=== PATIENT | female | born 1950 ===

== ENCOUNTER 2018-03-06 09:39 | Inpatient (IN) | payer MEDICARE, MEDICAID ==
[2018-03-06 09:40] VITALS: BMI 35.2
--- NOTE | 2018-03-06 09:56 | ED PDOC ---
HPI: Abdomen Time Seen by Provider: 03/06/18 09:44 Chief Complaint (Nursing): Abdominal Pain History Per: Patient History/Exam Limitations: no limitations Onset/Duration Of Symptoms: Other (x 1 week) Current Symptoms Are (Timing): Still Present Additional Complaint(s): 67-year-old female, with a past medical history of autoimmune hepatitis, presents to emergency department with RUQ abdominal pain associated with nausea and increased jaundice x 1 week. Pt reports subjective fever. Denies diarrhea. PMD: Provider TBD Past Medical History Reviewed: Historical Data, Nursing Documentation, Vital Signs Vital Signs: Last Vital Signs Temp 98.9 F 03/06/18 09:43 Pulse 76 03/06/18 09:43 Resp 18 03/06/18 09:43 BP 104/73 03/06/18 09:43 Pulse Ox 98 03/06/18 11:27 - Medical History PMH: Anxiety, Arthritis, Asthma, Bronchitis, CAD, Depression, Diverticulitis, Fractures, Gastritis, HTN, Hypercholesterolemia, Kidney Stones, Migraine, Pneumonia (treated as outpt in May 2016) Denies: HIV, Chronic Kidney Disease Other PMH: autoimmune hepatitis - Surgical History Other surgeries: b/l shoulder surgery - Family History Family History: States: Unknown Family Hx - Social History Current smoker - smoking cessation education provided: No Alcohol: None Drugs: Denies - Home Medications Home Medications: Ambulatory Orders Medication Instructions Recorded Carvedilol [Coreg] 12.5 mg PO BID 10/12/14 - Allergies Allergies/Adverse Reactions: Allergies Allergy/AdvReac Type Severity Reaction Status Date / Time codeine Allergy RASH Verified 05/27/16 11:23 peanut Allergy RASH Verified 05/27/16 11:23 Review of Systems ROS Statement: Except As Marked, All Systems Reviewed And Found Negative Constitutional: Positive for: Fever (subjective), Other (Increased jaundice) Gastrointestinal: Positive for: Nausea, Abdominal Pain (RUQ). Negative for: Diarrhea Physical Exam - Reviewed Nursing Documentation Reviewed: Yes Vital Signs Reviewed: Yes - Physical Exam Skin: Positive for: Jaundice Eye Exam: Positive for: Scleral icterus Cardiovascular/Chest: Positive for: Regular Rate, Rhythm Respiratory: Positive for: Normal Breath Sounds. Negative for: Respiratory Distress Gastrointestinal/Abdominal: Positive for: Tenderness (RUQ). Negative for: Guarding, Rebound Extremity: Negative for: Deformity, Swelling Neurologic/Psych: Positive for: Alert, Oriented (x 3) - Laboratory Results Result Diagrams: 03/06/18 10:00 03/06/18 10:00 - ECG O2 Sat by Pulse Oximetry: 98 (RA) Pulse Ox Interpretation: Normal Medical Decision Making Medical Decision Making: Time: 09:52 Plan: - CT Abdomen and Pelvis IV Contrast - CMP - CBC (with differential) - Urinalysis UA ordered. Scribe Attestation: Documented by Kenneth Reid, acting as a scribe for Godfrey Arreaga MD Provider Scribe Attestation: All medical record entries made by the Scribe were at my direction and personally dictated by me. I have reviewed the chart and agree that the record accurately reflects my personal performance of the history, physical exam, medical decision making, and the department course for this patient. I have also personally directed, reviewed, and agree with the discharge instructions and disposition. Disposition - Clinical Impression Clinical Impression: Jaundice due to hepatitis - Patient ED Disposition Is Patient to be Admitted: Yes - Disposition Disposition Time: 12:24 Condition: FAIR Forms: LastRoom (Tongan) - Pt Status Changed To: Hospital Disposition Of: Inpatient - Admit Certification Admit to Inpatient:: After my assessment, the patient will require hospitalization for at least two midnights. This is because of the severity of symptoms shown, intensity of services needed, and/or the medical risk in this patient being treated as an outpatient. - POA Present On Arrival: None
[2018-03-06 10:10] LABS: BASO # 0.1 K/uL (0.0-0.2); BASO % 1.5 % (0.0-2.0); EOS # 0.1 K/uL (0.0-0.7); EOS % 1.8 % (0.0-4.0); HEMOGLOBIN 11.7 g/dL (12.0-16.0); LYMPH # 2.8 K/uL (1.0-4.3); LYMPH % 37.1 % (20.0-40.0); MEAN CELL VOLUME 84.2 fl (81.0-99.0); MEAN CORPUSCULAR HEMOGLOBIN 28.4 pg (27.0-31.0); MEAN CORPUSCULAR HGB CONC 33.7 g/dL (33.0-37.0); MEAN PLATELET VOLUME 10.3 fl (7.2-11.7); MONO # 0.7 K/uL (0.0-0.8); MONO % 9.2 % (0.0-10.0); NEUT # 3.8 K/uL (1.8-7.0); NEUT % 50.4 % (50.0-75.0); NRBC % 0.1 % (0.0-0.0); RBC 4.14 Mil/uL (3.80-5.20); RED CELL DISTRIBUTION WIDTH 18.9 % (11.5-14.5); WHITE BLOOD COUNT 7.6 K/uL (4.8-10.8)
[2018-03-06 10:16] LABS: ALB/GLOB RATIO 0.6 (1.0-2.1); ALBUMIN 3.2 g/dL (3.5-5.0); ALT/SGPT 310 U/L (9-52); BLOOD UREA NITROGEN 15 mg/dl (7-17); CALCIUM 8.5 mg/dL (8.4-10.2); GFR NON-AFRICAN AMERICAN > 60
[2018-03-06 10:44] LABS: AST/SGOT 1661 U/L (14-36)
[2018-03-06 11:42] LABS: RENAL EPITHELIAL 1 /hpf (0-3); SQUAMOUS EPITHIAL 1 /hpf (0-5); URINE BILIRUBIN MODERATE (NEGATIVE); URINE BLOOD NEGATIVE (NEGATIVE); URINE CLARITY SLIGHTY-CLOUDY (Clear); URINE COLOR AMBER (YELLOW); URINE GLUCOSE (UA) NEG (Normal); URINE LEUKOCYTE ESTERASE TRACE Leu/uL (Negative); URINE PROTEIN NEGATIVE (NEGATIVE)
[2018-03-06] MEDS ORDERED: Sodium Chloride 0.9% 1,000 ML IV STA (11:47)
[2018-03-06] MEDS ORDERED: cefTRIAXone (Rocephin) 1 gm Inj ONE (12:58)
--- NOTE | 2018-03-06 13:14 | CP.PCM.HP ---
History of Present Illness - History of Present Illness History of Present Illness: 67 yo female with history of Autoimmune Hepatitis, HTN, HLD, Nephrolithiasis and Gastritis brought in by because of abdominal pain associated with severe nausea and jaundice since 6 days ago. Denied vomiting or diarrhea. Noted having fever of 102 and black stools yesterday. Present on Admission - Present on Admission Any Indicators Present on Admission: No History of DVT/PE: No History of Uncontrolled Diabetes: No Urinary Catheter: No Decubitus Ulcer Present: No Review of Systems - Review of Systems All systems: reviewed and no additional remarkable complaints except (aside from those mentioned above, 12 point system review were negative by me) Past Patient History - Tetanus Immunizations Tetanus Immunization: Unknown - Past Medical History & Family History Past Medical History?: Yes - Past Social History Smoking Status: Never Smoked Chewing Tobacco Use: No Cigar Use: No Alcohol: None Drugs: Denies Home Situation {Lives}: With Family - CARDIAC Hx Hypercholesterolemia: Yes Hx Hypertension: Yes - PULMONARY Hx Asthma: Yes Hx Bronchitis: Yes Hx Pneumonia: Yes (treated as outpt in May 2016) - NEUROLOGICAL Hx Migraine: Yes - HEENT Hx HEENT Problems: No - RENAL Hx Chronic Kidney Disease: No Hx Kidney Stones: Yes - ENDOCRINE/METABOLIC Hx Endocrine Disorders: No - HEMATOLOGICAL/ONCOLOGICAL Hx Human Immunodeficiency Virus (HIV): No Other/Comment: Autoimmune Hepatitis - INTEGUMENTARY Hx Dermatological Problems: No - MUSCULOSKELETAL/RHEUMATOLOGICAL Hx Arthritis: Yes Hx Fractures: Yes - GASTROINTESTINAL Hx Diverticulitis: Yes Hx Gastritis: Yes Other/Comment: Autoimmune Hepatitis - GENITOURINARY/GYNECOLOGICAL Hx Genitourinary Disorders: No - PSYCHIATRIC Hx Anxiety: Yes Hx Depression: Yes - SURGICAL HISTORY Hx Surgeries: Yes Other/Comment: JASON. SHOULDER SURGERY - ANESTHESIA Hx Anesthesia: Yes Hx Anesthesia Reactions: No Hx Malignant Hyperthermia: No Meds Allergies/Adverse Reactions: Allergies Allergy/AdvReac Type Severity Reaction Status Date / Time codeine Allergy RASH Verified 05/27/16 11:23 peanut Allergy RASH Verified 05/27/16 11:23 Physical Exam - Constitutional Appears: No Acute Distress - Head Exam Head Exam: ATRAUMATIC - Eye Exam Eye Exam: Scleral icterus - ENT Exam ENT Exam: Mucous Membranes Moist - Neck Exam Neck exam: Negative for: Meningismus - Respiratory Exam Respiratory Exam: absent: Rales, Rhonchi, Wheezes, Respiratory Distress - Cardiovascular Exam Cardiovascular Exam: REGULAR RHYTHM, +S1, +S2 - GI/Abdominal Exam GI & Abdominal Exam: Soft. absent: Tenderness - Rectal Exam Rectal Exam: Deferred - Extremities Exam Extremities exam: Negative for: calf tenderness, pedal edema - Back Exam Back exam: NORMAL INSPECTION - Neurological Exam Neurological exam: Alert, Oriented x3 - Psychiatric Exam Psychiatric exam: Normal Affect - Skin Skin Exam: Dry, Intact Results - Vital Signs Recent Vital Signs: Last Vital Signs Temp 98.9 F 03/06/18 09:43 Pulse 76 03/06/18 09:43 Resp 18 03/06/18 09:43 BP 104/73 03/06/18 09:43 Pulse Ox 98 03/06/18 12:24 - Labs Result Diagrams: 03/06/18 10:00 03/06/18 10:00 Labs: Laboratory Results - last 24 hr 03/06/18 03/06/18 03/06/18 10:00 10:00 11:20 WBC 7.6 RBC 4.14 Hgb 11.7 L Hct 34.8 MCV 84.2 MCH 28.4 MCHC 33.7 RDW 18.9 H Plt Count 200 MPV 10.3 Neut % (Auto) 50.4 Lymph % (Auto) 37.1 [place] % (Auto) 9.2 Eos % (Auto) 1.8 Baso % (Auto) 1.5 Neut # (Auto) 3.8 Lymph # (Auto) 2.8 [place] # (Auto) 0.7 Eos # (Auto) 0.1 Baso # (Auto) 0.1 Sodium 142 Potassium 4.0 Chloride 108 H Carbon Dioxide 23 Anion Gap 15 BUN 15 Creatinine 0.6 L Est GFR ( Amer) > 60 Est GFR (Non-Af Amer) > 60 Random Glucose 124 H Calcium 8.5 Total Bilirubin 11.6 H AST 1661 H ALT 310 H D Alkaline Phosphatase 126 Total Protein 8.6 H Albumin 3.2 L Globulin 5.4 H Albumin/Globulin Ratio 0.6 L Urine Color Aretha Urine Clarity Slighty-cloudy Urine pH 6.0 Ur Specific [place] 1.019 Urine Protein Negative Urine Glucose (UA) Neg Urine Ketones Negative Urine Blood Negative Urine Nitrate Negative Urine Bilirubin Moderate Urine Urobilinogen 4.0 H Ur Leukocyte Esterase Trace Urine RBC (Auto) 8 H Urine Microscopic WBC 19 H Ur Squamous Epith Cells 1 Ur Renal Epithelial Cell 1 Assessment & Plan - Assessment and Plan (Free Text) Assessment: 67 yo female with history of Autoimmune Hepatitis, HTN, HLD, Nephrolithiasis and Gastritis brought in by because of abdominal pain associated with severe nausea and jaundice since 6 days ago. Denied vomiting or diarrhea. Noted having fever of 102 and black stools yesterday. 1. Autoimmune Hepatitis Hepatitis profile LFT in am GI consult with Dr Calderon 2. UTI blood culture and urine culture Cipro 400mg IV q 12hrs 3. Gastritis Protonix 40mg PO daily Zofran 4mg IV q 6hrs prn stool guiac x 3 4. HTN BP controlled Coreg 6.25mg PO BID 5. DVT prophylaxis venodyne boots while in bed
[2018-03-06] MEDS ORDERED: Iohexol 300 100 ML IJ ONE (13:28)
[2018-03-06] MEDS ORDERED: Sodium Chloride 0.9% 50 ML IV ONE (13:29)
--- NOTE | 2018-03-06 14:20 | CT ---
Date of service: 03/06/2018 PROCEDURE: CT Abdomen and Pelvis with contrast HISTORY: Abd pain COMPARISON: None. TECHNIQUE: Following the intravenous administration of iodinated contrast material, a CT examination of the abdomen and pelvis performed from the domes of the diaphragms to the symphysis pubis with reformatted datasets provided in axial, sagittal and coronal planes. Oral contrast was not administered as per referring physician request. Contrast dose: Omnipaque 300, 95 cc Radiation dose: Total exam DLP = 1129.24 mGy-cm. This CT exam was performed using one or more of the following dose reduction techniques: Automated exposure control, adjustment of the mA and/or kV according to patient size, and/or use of iterative reconstruction technique. FINDINGS: LOWER THORAX: Scattered mild ground-glass opacity is seen at the bilateral lung bases as well as linear atelectasis versus fibrosis. Mild cardiomegaly is apparent. Trace pericardial thickening or effusion noted anteriorly. LIVER: Unremarkable. No gross lesion or ductal dilatation. GALLBLADDER AND BILE DUCTS: Gallbladder collapse is again identified with increased radiodense cholelithiasis. Trace recurrent or chronic cholecystic fluid is evident once again. PANCREAS: Unremarkable. No gross lesion or ductal dilatation. SPLEEN: Unremarkable. ADRENALS: Unremarkable. No mass. KIDNEYS AND URETERS: A punctate intrarenal is identified at the right kidney in the interval, nonobstructive. No additional radiodense urolithiasis bilaterally. Tiny sub cm lucencies are difficult to characterize due to their small size but not significantly change appears at the upper and mid to lower pole right kidney once again. A simple cyst measures 4.3 cm at the mid pole right kidney, increased in size from 3.3 cm previously. A stable adjacent small simple cyst is seen posterior or inferior to it measure 1.8 cm, not significantly changed in overall size. No obstructive uropathy bilaterally or definitive solid renal parenchymal mass identified at this time. VASCULATURE: Unremarkable. BOWEL: Lack of oral contrast limits evaluation the gastrointestinal tract with the stomach completely collapsed. There is no bowel obstruction. The majority of small bowel loops appear collapsed and large-bowel as normal caliber to collapsed variably. Limited retained fecal material scattered throughout the large bowel. No gross mural thickening or local pericolic reaction appreciable. APPENDIX: Normal appendix. PERITONEUM: Unremarkable. No free fluid. No free air. LYMPH NODES: Unremarkable. No enlarged lymph nodes. BLADDER: Unremarkable. REPRODUCTIVE: Unremarkable. BONES: Chronic but limited anterior wedge compression fractures suspected at T7, T8 and T9. OTHER FINDINGS: None. IMPRESSION: 1. Recurrent or persistent pattern of gallbladder collapsed, although the trace pericholecystic fluid is suggested once again. Clinically correlate further. Limited radiodense cholelithiasis is slightly increased in the dependent portion. 2. Left renal cyst identified. Tiny lucencies identified at the right kidney number a total of 2 enter too small to characterize once again. No obstructive uropathy bilaterally. Punctate radiodense intrarenal calculus is nonobstructive at the right kidney, with none identified at the left. 3. Other lesser findings as discussed above.
[2018-03-06] MEDS: Pantoprazole 40 mg EC Tab PO SCH (14:26)
[2018-03-06] MEDS ORDERED: Pantoprazole 40 mg EC Tab PO ONE (14:26)
--- NOTE | 2018-03-06 17:53 | CP.PCM.CON ---
History of Present Illness - History of Present Illness History of Present Illness: yo female with h/o autoimmune hepatitis c/o RUQ pain and increased jaundice. Had similar presentation in the past with LFTs of similar magnitude. Had liver biopsy 07/2016.which showed chronic active hepaitis with mixed etiology. Features favors autoimmune hepatitis. Review of Systems - Constitutional Constitutional: absent: Chills - EENT Eyes: absent: Blurred Vision Ears: absent: Ear Discharge Nose/Mouth/Throat: absent: Epistaxis - Breasts Breasts: absent: Mass - Cardiovascular Cardiovascular: absent: Chest Pain - Respiratory Respiratory: absent: Dyspnea - Gastrointestinal Gastrointestinal: Abdominal Pain - Genitourinary Genitourinary: absent: Change in Urinary Stream Past Patient History - Tetanus Immunizations Tetanus Immunization: Unknown - Past Medical History & Family History Past Medical History?: Yes - Past Social History Smoking Status: Never Smoked - CARDIAC Hx Cardiac Disorders: Yes Hx Hypercholesterolemia: Yes Hx Hypertension: Yes - PULMONARY Hx Respiratory Disorders: Yes Hx Asthma: Yes Hx Bronchitis: Yes Hx Pneumonia: Yes (treated as outpt in May 2016) - NEUROLOGICAL Hx Neurological Disorder: Yes Hx Migraine: Yes - HEENT Hx HEENT Problems: No - RENAL Hx Chronic Kidney Disease: No - ENDOCRINE/METABOLIC Hx Endocrine Disorders: No - HEMATOLOGICAL/ONCOLOGICAL Hx Blood Disorders: No Hx Human Immunodeficiency Virus (HIV): No Other/Comment: Autoimmune Hepatitis - INTEGUMENTARY Hx Dermatological Problems: No - MUSCULOSKELETAL/RHEUMATOLOGICAL Hx Musculoskeletal Disorders: Yes Hx Arthritis: Yes Hx Falls: No Hx Fractures: Yes - GASTROINTESTINAL Hx Gastrointestinal Disorders: Yes Hx Diverticulitis: Yes Hx Gastritis: Yes Other/Comment: Autoimmune Hepatitis - GENITOURINARY/GYNECOLOGICAL Hx Genitourinary Disorders: Yes Other/Comment: kidney stone - PSYCHIATRIC Hx Psychophysiologic Disorder: Yes Hx Anxiety: Yes Hx Depression: Yes Hx Substance Use: No - SURGICAL HISTORY Hx Surgeries: Yes Hx Orthopedic Surgery: Yes (bilateral shoulder, right kne arthroscopy) Other/Comment: JASON. SHOULDER SURGERY - ANESTHESIA Hx Anesthesia: Yes Hx Anesthesia Reactions: No Hx Malignant Hyperthermia: No Has any member of the family had a problem w/ anesthesia?: No Meds Allergies/Adverse Reactions: Allergies Allergy/AdvReac Type Severity Reaction Status Date / Time codeine Allergy RASH Verified 05/27/16 11:23 peanut Allergy RASH Verified 05/27/16 11:23 - Medications Medications: Current Medications Azathioprine (Imuran) 50 mg PO DAILY [facility] Azathioprine (Imuran) 50 mg PO DAILY [facility] Carvedilol (Coreg) 6.25 mg PO Q12 [facility] Sodium Chloride (Sodium Chloride 0.9%) 1,000 mls @ 150 mls/hr IV .Q6H40M STA Stop: 03/06/18 18:26 Last Admin: 03/06/18 12:52 Dose: 150 mls/hr Ciprofloxacin (Cipro 400mg/200ml Dsw) 400 mg in 200 mls @ 200 mls/hr IVPB Q12 [facility] PRN Reason: Protocol Pantoprazole Sodium (Protonix Ec Tab) 40 mg PO DAILY [facility] Last Admin: 03/06/18 14:26 Dose: 40 mg Prednisone (Prednisone Tab) 30 mg PO BID [facility] Physical Exam - Constitutional Appears: No Acute Distress - Head Exam Head Exam: ATRAUMATIC - Eye Exam Eye Exam: EOMI Pupil Exam: PERRL - ENT Exam ENT Exam: Normal Exam - Neck Exam Neck exam: Positive for: Normal Inspection - Respiratory Exam Respiratory Exam: Clear to Auscultation Bilateral - Cardiovascular Exam Cardiovascular Exam: REGULAR RHYTHM, +S1, +S2 - GI/Abdominal Exam GI & Abdominal Exam: Normal Bowel Sounds, Soft. absent: Tenderness Results - Vital Signs Recent Vital Signs: Last Vital Signs Temp 98.2 F 03/06/18 16:46 Pulse 62 03/06/18 16:46 Resp 18 03/06/18 16:46 BP 122/67 03/06/18 16:46 Pulse Ox 95 03/06/18 16:46 - Labs Result Diagrams: 03/06/18 10:00 03/06/18 10:00 Labs: Laboratory Results - last 24 hr 03/06/18 03/06/18 03/06/18 10:00 10:00 11:20 WBC 7.6 RBC 4.14 Hgb 11.7 L Hct 34.8 MCV 84.2 MCH 28.4 MCHC 33.7 RDW 18.9 H Plt Count 200 MPV 10.3 Neut % (Auto) 50.4 Lymph % (Auto) 37.1 [place] % (Auto) 9.2 Eos % (Auto) 1.8 Baso % (Auto) 1.5 Neut # (Auto) 3.8 Lymph # (Auto) 2.8 [place] # (Auto) 0.7 Eos # (Auto) 0.1 Baso # (Auto) 0.1 Sodium 142 Potassium 4.0 Chloride 108 H Carbon Dioxide 23 Anion Gap 15 BUN 15 Creatinine 0.6 L Est GFR ( Amer) > 60 Est GFR (Non-Af Amer) > 60 Random Glucose 124 H Calcium 8.5 Total Bilirubin 11.6 H AST 1661 H ALT 310 H D Alkaline Phosphatase 126 Ammonia Total Protein 8.6 H Albumin 3.2 L Globulin 5.4 H Albumin/Globulin Ratio 0.6 L Urine Color Aretha Urine Clarity Slighty-cloudy Urine pH 6.0 Ur Specific [place] 1.019 Urine Protein Negative Urine Glucose (UA) Neg Urine Ketones Negative Urine Blood Negative Urine Nitrate Negative Urine Bilirubin Moderate Urine Urobilinogen 4.0 H Ur Leukocyte Esterase Trace Urine RBC (Auto) 8 H Urine Microscopic WBC 19 H Ur Squamous Epith Cells 1 Ur Renal Epithelial Cell 1 03/06/18 12:45 WBC RBC Hgb Hct MCV MCH MCHC RDW Plt Count MPV Neut % (Auto) Lymph % (Auto) [place] % (Auto) Eos % (Auto) Baso % (Auto) Neut # (Auto) Lymph # (Auto) [place] # (Auto) Eos # (Auto) Baso # (Auto) Sodium Potassium Chloride Carbon Dioxide Anion Gap BUN Creatinine Est GFR ( Amer) Est GFR (Non-Af Amer) Random Glucose Calcium Total Bilirubin AST ALT Alkaline Phosphatase Ammonia 27 Total Protein Albumin Globulin Albumin/Globulin Ratio Urine Color Urine Clarity Urine pH Ur Specific [place] Urine Protein Urine Glucose (UA) Urine Ketones Urine Blood Urine Nitrate Urine Bilirubin Urine Urobilinogen Ur Leukocyte Esterase Urine RBC (Auto) Urine Microscopic WBC Ur Squamous Epith Cells Ur Renal Epithelial Cell Assessment & Plan (1) Jaundice due to hepatitis Assessment and Plan: Multiple admissions with similar LFTs and w/u most c/w autoimmune hepatitis. Will start prednisone and AZT.. Follow CBC and LFTs daily. Status: Acute
[2018-03-06] MEDS: Sodium Chloride 0.9% 1,000 ML IV SCH (20:30)
[2018-03-06 21:42] LABS: HEPATITIS B SURFACE AG Negative (NEGATIVE)
[2018-03-06 21:48] LABS: HEPATITIS A IGM NEGATIVE (NEGATIVE); HEPATITIS B CORE AB NEGATIVE (NEGATIVE)
[2018-03-06 22:00] LABS: HEPATITIS C ANTIBODY NEGATIVE (NEGATIVE)
[2018-03-06] MEDS: Ciprofloxacin 400mg/200ml D5W 400 MG/200 ML BAG IVPB SCH (22:54)
[2018-03-07] MEDS: Sodium Chloride 0.9% 1,000 ML IV SCH ×3 (02:00→17:16)
[2018-03-07 07:20] LABS: BASO % 0.6 % (0.0-2.0); EOS % 0.2 % (0.0-4.0); HEMOGLOBIN 11.5 g/dL (12.0-16.0); LYMPH # 1.2 K/uL (1.0-4.3); MEAN CELL VOLUME 84.9 fl (81.0-99.0); MEAN CORPUSCULAR HEMOGLOBIN 28.3 pg (27.0-31.0); MEAN CORPUSCULAR HGB CONC 33.3 g/dL (33.0-37.0); MEAN PLATELET VOLUME 11.4 fl (7.2-11.7); MONO # 0.3 K/uL (0.0-0.8); MONO % 4.3 % (0.0-10.0); NEUT # 4.3 K/uL (1.8-7.0); NEUT % 73.9 % (50.0-75.0); RBC 4.08 Mil/uL (3.80-5.20); RED CELL DISTRIBUTION WIDTH 20.3 % (11.5-14.5); WHITE BLOOD COUNT 5.9 K/uL (4.8-10.8)
[2018-03-07 07:40] LABS: ALB/GLOB RATIO 0.6 (1.0-2.1); ALBUMIN 2.9 g/dL (3.5-5.0); ALT/SGPT 271 U/L (9-52); BILIRUBIN,DIRECT 8.9 mg/ml (0.0-0.4); BLOOD UREA NITROGEN 12 mg/dl (7-17); CALCIUM 8.1 mg/dL (8.4-10.2); GFR NON-AFRICAN AMERICAN > 60
[2018-03-07 07:53] LABS: AST/SGOT 1391 U/L (14-36)
[2018-03-07] MEDS: Pantoprazole 40 mg EC Tab PO SCH (08:58)
[2018-03-07 10:07] LABS: INR 2.2 (0.9-1.2); PROTHROMBIN TIME 25.1 Seconds (9.8-13.1)
[2018-03-07] MEDS: Ciprofloxacin 400mg/200ml D5W 400 MG/200 ML BAG IVPB SCH ×2 (11:00→20:54)
--- NOTE | 2018-03-07 19:06 | CP.PCM.PN ---
Subjective - Date & Time of Evaluation Date of Evaluation: 03/07/18 Time of Evaluation: 14:00 - Subjective Subjective: Patient seen and examined. Feeling better with abdominal pain and nausea relieved. Objective - Vital Signs/Intake and Output Vital Signs (last 24 hours): Temp Pulse Resp BP Pulse Ox 97.9 F 59 L 18 119/74 94 L 03/07/18 16:56 03/07/18 16:56 03/07/18 16:56 03/07/18 16:56 03/07/18 16:56 - Medications Medications: Current Medications Azathioprine (Imuran) 50 mg PO DAILY [facility] Last Admin: 03/07/18 09:03 Dose: 50 mg Carvedilol (Coreg) 6.25 mg PO Q12 [facility] Last Admin: 03/07/18 08:58 Dose: Not Given Ciprofloxacin (Cipro 400mg/200ml Dsw) 400 mg in 200 mls @ 200 mls/hr IVPB Q12 [facility] PRN Reason: Protocol Last Admin: 03/07/18 11:00 Dose: 200 mls/hr Sodium Chloride (Sodium Chloride 0.9%) 1,000 mls @ 150 mls/hr IV .Q6H40M [facility] Stop: 03/07/18 19:54 Last Admin: 03/07/18 17:16 Dose: 150 mls/hr Pantoprazole Sodium (Protonix Ec Tab) 40 mg PO DAILY [facility] Last Admin: 03/07/18 08:58 Dose: 40 mg Prednisone (Prednisone Tab) 30 mg PO BID [facility] Last Admin: 03/07/18 17:15 Dose: 30 mg - Labs Labs: 03/07/18 05:20 03/07/18 05:20 PT 25.1 Seconds (9.8-13.1) H 03/07/18 09:00 INR 2.2 (0.9-1.2) H 03/07/18 09:00 - Constitutional Appears: No Acute Distress - Head Exam Head Exam: ATRAUMATIC - Eye Exam Eye Exam: Scleral icterus - ENT Exam ENT Exam: Mucous Membranes Moist - Neck Exam Neck Exam: absent: Meningismus - Respiratory Exam Respiratory Exam: absent: Rales, Rhonchi, Wheezes, Respiratory Distress - Cardiovascular Exam Cardiovascular Exam: REGULAR RHYTHM, +S1, +S2 - GI/Abdominal Exam GI & Abdominal Exam: Soft. absent: Tenderness - Rectal Exam Rectal Exam: Deferred - Neurological Exam Neurological Exam: Alert, Oriented x3 - Psychiatric Exam Psychiatric exam: Normal Affect - Skin Skin Exam: Dry, Intact Assessment and Plan - Assessment and Plan (Free Text) Assessment: 67 yo female with history of Autoimmune Hepatitis, HTN, HLD, Nephrolithiasis and Gastritis brought in by because of abdominal pain associated with severe nausea and jaundice since 6 days ago. Denied vomiting or diarrhea. Noted having fever of 102 and black stools yesterday. 1. Autoimmune Hepatitis continue Imuran and Prednisone GI consult with Dr Calderon appreciated LFTs and CBC in am 2. UTI blood culture and urine culture: no growth continue IV Cipro 3. Gastritis Protonix 40mg PO daily stool guiac x 3 4. HTN BP controlled Coreg 6.25mg PO BID 5. DVT prophylaxis venodyne boots while in bed
[2018-03-08 07:05] LABS: HEMOGLOBIN 10.7 g/dL (12.0-16.0); MEAN CELL VOLUME 84.5 fl (81.0-99.0); MEAN CORPUSCULAR HEMOGLOBIN 28.8 pg (27.0-31.0); RBC 3.73 Mil/uL (3.80-5.20); RED CELL DISTRIBUTION WIDTH 19.6 % (11.5-14.5); WHITE BLOOD COUNT 9.9 K/uL (4.8-10.8)
[2018-03-08 07:23] LABS: ALB/GLOB RATIO 0.5 (1.0-2.1); ALBUMIN 2.5 g/dL (3.5-5.0); BILIRUBIN,DIRECT 6.2 mg/ml (0.0-0.4)
[2018-03-08] MEDS: Ciprofloxacin 400mg/200ml D5W 400 MG/200 ML BAG IVPB SCH ×2 (08:31→21:40)
[2018-03-08] MEDS: Pantoprazole 40 mg EC Tab PO SCH (08:33)
[2018-03-08] MEDS ORDERED: Magnesium Hydroxide Susp 30 ml UD PO PRN (12:21)
--- NOTE | 2018-03-08 12:26 | CP.PCM.PN ---
Subjective - Date & Time of Evaluation Date of Evaluation: 03/08/18 Time of Evaluation: 12:23 - Subjective Subjective: Patient c/0 abdominal distention and has not had a BM for 3 days. Objective - Vital Signs/Intake and Output Vital Signs (last 24 hours): Temp Pulse Resp BP Pulse Ox 97.6 F 60 20 97/53 L 95 03/08/18 08:21 03/08/18 08:33 03/08/18 08:21 03/08/18 08:33 03/08/18 08:21 - Medications Medications: Current Medications Azathioprine (Imuran) 50 mg PO DAILY [facility] Last Admin: 03/08/18 08:34 Dose: 50 mg Carvedilol (Coreg) 6.25 mg PO Q12 [facility] Last Admin: 03/08/18 08:33 Dose: 6.25 mg Ciprofloxacin (Cipro 400mg/200ml Dsw) 400 mg in 200 mls @ 200 mls/hr IVPB Q12 [facility] PRN Reason: Protocol Last Admin: 03/08/18 08:31 Dose: 200 mls/hr Magnesium Hydroxide (Milk Of Magnesia) 30 ml PO DAILY PRN PRN Reason: Constipation Pantoprazole Sodium (Protonix Ec Tab) 40 mg PO DAILY [facility] Last Admin: 03/08/18 08:33 Dose: 40 mg Prednisone (Prednisone Tab) 30 mg PO BID [facility] Last Admin: 03/08/18 08:34 Dose: 30 mg - Labs Labs: 03/08/18 05:20 03/07/18 05:20 PT 25.1 Seconds (9.8-13.1) H 03/07/18 09:00 INR 2.2 (0.9-1.2) H 03/07/18 09:00 - Constitutional Appears: Well - Head Exam Head Exam: ATRAUMATIC - Eye Exam Eye Exam: Scleral icterus - ENT Exam ENT Exam: Mucous Membranes Moist - Respiratory Exam Respiratory Exam: Clear to Ausculation Bilateral - Cardiovascular Exam Cardiovascular Exam: REGULAR RHYTHM, +S1, +S2 - GI/Abdominal Exam GI & Abdominal Exam: Distended, Soft, Normal Bowel Sounds. absent: Tenderness - Extremities Exam Extremities Exam: Normal Inspection Assessment and Plan (1) Jaundice due to hepatitis Assessment & Plan: LFTs improving on AZT and steroids. Drop in Hgb likely due to hemodilution as there is no clinical evidence of GI bleed. Continue current meds. MOM given for constipation. Status: Acute
--- NOTE | 2018-03-08 12:53 | CP.PCM.PN ---
Subjective - Date & Time of Evaluation Date of Evaluation: 03/08/18 Time of Evaluation: 12:53 - Subjective Subjective: pt states she is feeling mildly better however has some abd distension and admits to joi nunez no BM today hd stable nad Objective - Vital Signs/Intake and Output Vital Signs (last 24 hours): Temp Pulse Resp BP Pulse Ox 97.6 F 60 20 97/53 L 95 03/08/18 08:21 03/08/18 08:33 03/08/18 08:21 03/08/18 08:33 03/08/18 08:21 Vitals Reviewed GEN: WDWN, alert, cooperative HEENT: NCAT, PERRL, EOMI HEART: RRR, +S1S2, NO MRG LUNG: CTAB, NO WRR ABD: soft, NT, ND, No HSM, No masses EXT: normal pedal pulses, normal capillary refill NEURO: awake, alert, no focal deficits SKIN: warm, dry PSYCH: normal mood, normal affect - Medications Medications: Current Medications Azathioprine (Imuran) 50 mg PO DAILY [facility] Last Admin: 03/08/18 08:34 Dose: 50 mg Carvedilol (Coreg) 6.25 mg PO Q12 [facility] Last Admin: 03/08/18 08:33 Dose: 6.25 mg Ciprofloxacin (Cipro 400mg/200ml Dsw) 400 mg in 200 mls @ 200 mls/hr IVPB Q12 [facility] PRN Reason: Protocol Last Admin: 03/08/18 08:31 Dose: 200 mls/hr Magnesium Hydroxide (Milk Of Magnesia) 30 ml PO DAILY PRN PRN Reason: Constipation Last Admin: 03/08/18 12:45 Dose: 30 ml Pantoprazole Sodium (Protonix Ec Tab) 40 mg PO DAILY [facility] Last Admin: 03/08/18 08:33 Dose: 40 mg Prednisone (Prednisone Tab) 30 mg PO BID [facility] Last Admin: 03/08/18 08:34 Dose: 30 mg - Labs Labs: 03/08/18 05:20 03/07/18 05:20 PT 25.1 Seconds (9.8-13.1) H 03/07/18 09:00 INR 2.2 (0.9-1.2) H 03/07/18 09:00 Assessment and Plan - Assessment and Plan (Free Text) Plan: 67 yo female with history of Autoimmune Hepatitis, HTN, HLD, Nephrolithiasis and Gastritis brought in by because of abdominal pain associated with severe nausea and jaundice since 6 days ago. Denied vomiting or diarrhea. Noted having fever of 102 and black stools yesterday. 1. Autoimmune Hepatitis continue Imuran and Prednisone GI consult with Dr Calderon appreciated LFTs and CBC in am 2. UTI blood culture and urine culture: no growth continue IV Cipro 3. Gastritis Protonix 40mg PO daily stool guiac x 3 monitor H/H drop 1 gm overnight, possible hemodilution 4. HTN BP controlled Coreg 6.25mg PO BID 5. DVT prophylaxis venodyne boots while in bed
[2018-03-08] MEDS: Sodium Chloride 0.9% 1,000 ML IV SCH (21:10)
[2018-03-09 06:38] LABS: HEMOGLOBIN 11.3 g/dL (12.0-16.0); MEAN CELL VOLUME 84.7 fl (81.0-99.0); MEAN CORPUSCULAR HEMOGLOBIN 29.1 pg (27.0-31.0); MEAN CORPUSCULAR HGB CONC 34.4 g/dL (33.0-37.0); RBC 3.87 Mil/uL (3.80-5.20); RED CELL DISTRIBUTION WIDTH 20.3 % (11.5-14.5); WHITE BLOOD COUNT 10.8 K/uL (4.8-10.8)
[2018-03-09 07:31] LABS: BLOOD UREA NITROGEN 16 mg/dl (7-17); GFR NON-AFRICAN AMERICAN > 60
[2018-03-09] MEDS: Ciprofloxacin 400mg/200ml D5W 400 MG/200 ML BAG IVPB SCH ×2 (08:26→20:28)
[2018-03-09] MEDS: Pantoprazole 40 mg EC Tab PO SCH (08:28)
[2018-03-09] MEDS: Sodium Chloride 0.9% 1,000 ML IV SCH ×2 (08:29→17:35)
[2018-03-09 09:36] LABS: ALB/GLOB RATIO 0.6 (1.0-2.1); ALBUMIN 2.6 g/dL (3.5-5.0); BILIRUBIN,DIRECT 4.4 mg/ml (0.0-0.4)
[2018-03-09] MEDS ORDERED: Bisacodyl 5mg EC Tab PO ONE (12:09)
--- NOTE | 2018-03-09 14:19 | CP.PCM.PN ---
Subjective - Date & Time of Evaluation Date of Evaluation: 03/09/18 Time of Evaluation: 14:14 - Subjective Subjective: Patient still with weakness and c/o abdominal swelling but is better. Objective - Vital Signs/Intake and Output Vital Signs (last 24 hours): Temp Pulse Resp BP Pulse Ox 98.1 F 59 L 19 138/79 96 03/09/18 07:53 03/09/18 08:27 03/09/18 07:53 03/09/18 08:27 03/09/18 07:53 - Medications Medications: Current Medications Azathioprine (Imuran) 50 mg PO DAILY [facility] Last Admin: 03/09/18 08:28 Dose: 50 mg Ciprofloxacin (Cipro 400mg/200ml Dsw) 400 mg in 200 mls @ 200 mls/hr IVPB Q12 [facility] PRN Reason: Protocol Last Admin: 03/09/18 08:26 Dose: 200 mls/hr Sodium Chloride (Sodium Chloride 0.9%) 1,000 mls @ 100 mls/hr IV .Q10H [facility] Stop: 03/09/18 20:53 Last Admin: 03/09/18 08:29 Dose: 100 mls/hr Magnesium Hydroxide (Milk Of Magnesia) 30 ml PO DAILY PRN PRN Reason: Constipation Last Admin: 03/08/18 12:45 Dose: 30 ml Pantoprazole Sodium (Protonix Ec Tab) 40 mg PO DAILY [facility] Last Admin: 03/09/18 08:28 Dose: 40 mg Prednisone (Prednisone Tab) 30 mg PO BID [facility] Last Admin: 03/09/18 08:26 Dose: 30 mg - Labs Labs: 03/09/18 05:45 03/09/18 05:45 PT 25.1 Seconds (9.8-13.1) H 03/07/18 09:00 INR 2.2 (0.9-1.2) H 03/07/18 09:00 - Head Exam Head Exam: ATRAUMATIC - Eye Exam Pupil Exam: PERRL - ENT Exam ENT Exam: Normal Exam - Neck Exam Neck Exam: Full ROM - Respiratory Exam Respiratory Exam: NORMAL BREATHING PATTERN - Cardiovascular Exam Cardiovascular Exam: REGULAR RHYTHM, +S1, +S2 - GI/Abdominal Exam GI & Abdominal Exam: Soft, Normal Bowel Sounds Assessment and Plan (1) Jaundice due to hepatitis Status: Acute (2) Autoimmune hepatitis Assessment & Plan: Patient on AZT and prednisone and LFTs continue to improve. She states she is feeling better than she had when she was admitted. Continue current meds, she will need continuing medical management as outpatient. Status: Acute (3) Autoimmune hepatitis Status: Acute
--- NOTE | 2018-03-09 16:01 | CP.PCM.PN ---
<Kina Price - Last Filed: 03/09/18 16:06> Subjective - Date & Time of Evaluation Date of Evaluation: 03/09/18 Time of Evaluation: 09:50 - Subjective Subjective: Patient was seen and examined at bedside with Dr. Lindquist. She is resting comfortably and reports she has abdominal discomfort at the RUQ. She also reports poor appetite but is trying to eat. She reports she has not had a bowel movement for almost 2-3 days and states her current dose of ducolax is not helping. Pt denies nausea, vomiting, dysuria, shortness of breath, and chest pain. Objective - Vital Signs/Intake and Output Vital Signs (last 24 hours): Temp Pulse Resp BP Pulse Ox 98.1 F 59 L 19 138/79 96 03/09/18 07:53 03/09/18 08:27 03/09/18 07:53 03/09/18 08:27 03/09/18 07:53 - Medications Medications: Current Medications Azathioprine (Imuran) 50 mg PO DAILY [facility] Last Admin: 03/09/18 08:28 Dose: 50 mg Ciprofloxacin (Cipro 400mg/200ml Dsw) 400 mg in 200 mls @ 200 mls/hr IVPB Q12 [facility] PRN Reason: Protocol Last Admin: 03/09/18 08:26 Dose: 200 mls/hr Sodium Chloride (Sodium Chloride 0.9%) 1,000 mls @ 100 mls/hr IV .Q10H [facility] Stop: 03/09/18 20:53 Last Admin: 03/09/18 08:29 Dose: 100 mls/hr Magnesium Hydroxide (Milk Of Magnesia) 30 ml PO DAILY PRN PRN Reason: Constipation Last Admin: 03/08/18 12:45 Dose: 30 ml Pantoprazole Sodium (Protonix Ec Tab) 40 mg PO DAILY [facility] Last Admin: 03/09/18 08:28 Dose: 40 mg Prednisone (Prednisone Tab) 30 mg PO BID [facility] Last Admin: 03/09/18 08:26 Dose: 30 mg - Labs Labs: 03/09/18 05:45 03/09/18 05:45 PT 25.1 Seconds (9.8-13.1) H 03/07/18 09:00 INR 2.2 (0.9-1.2) H 03/07/18 09:00 - Constitutional Appears: Well, Non-toxic, No Acute Distress - Head Exam Head Exam: NORMAL INSPECTION - Eye Exam Eye Exam: Normal appearance - ENT Exam ENT Exam: Mucous Membranes Moist, Normal Oropharynx - Neck Exam Neck Exam: Normal Inspection. absent: Lymphadenopathy, Tenderness, Thyromegaly - Respiratory Exam Respiratory Exam: Clear to Ausculation Bilateral, NORMAL BREATHING PATTERN. absent: Chest Wall Tenderness, Decreased Breath Sounds, Prolonged Expiratory Phase, Rales, Rhonchi, Wheezes, Respiratory Distress, Stridor - Cardiovascular Exam Cardiovascular Exam: Bradycardia, REGULAR RHYTHM, +S1, +S2. absent: Clicks, Diastolic murmur, Gallop, RRR, Rubs, +S4, Murmur - GI/Abdominal Exam GI & Abdominal Exam: Distended, Soft, Tenderness (+ RUQ tenderness. ), Normal Bowel Sounds. absent: Firm, Guarding, Rigid, Mass, Organomegaly, Pulsatile Mass , Rebound - Extremities Exam Extremities Exam: Normal Inspection - Neurological Exam Neurological Exam: Alert, Awake, Oriented x3 - Psychiatric Exam Psychiatric exam: Normal Affect, Normal Mood - Skin Skin Exam: Dry, Intact, Normal Color, Warm Assessment and Plan (1) Gastritis Status: Acute (2) UTI (urinary tract infection) Status: Acute (3) Autoimmune hepatitis Status: Acute (4) HTN (hypertension) Status: Chronic (5) DVT prophylaxis Status: Acute - Assessment and Plan (Free Text) Assessment: 67 yo female with medical history of Autoimmune Hepatitis, HTN, HLD, Nephrolithiasis and Gastritis brought in by because of abdominal pain associated with severe nausea and jaundice for 6 days duration. Denied vomiting or diarrhea. Patient is afebrile. Plan: 1. Autoimmune Hepatitis -Continue Imuran and Prednisone -LFT trending down. - GI consult appreciated: Continue current medical management. 2. UTI blood culture and urine culture: no growth continue IV Cipro 3. Gastritis Protonix 40mg PO daily Pending stool guiac x 3 Ducolax 10 mg given because of constipation. 4. HTN BP controlled D/Mg Coreg because of bradycardia. Continue to monitor. 5. DVT prophylaxis venodyne boots while in bed <Renato Lindquist - Last Filed: 03/10/18 16:49> Objective - Vital Signs/Intake and Output Vital Signs (last 24 hours): Temp Pulse Resp BP Pulse Ox 97.9 F 56 L 19 145/81 96 03/10/18 07:46 03/10/18 07:46 03/10/18 07:46 03/10/18 07:46 03/10/18 07:46 - Labs Labs: 03/10/18 05:35 03/09/18 05:45 PT 25.1 Seconds (9.8-13.1) H 03/07/18 09:00 INR 2.2 (0.9-1.2) H 03/07/18 09:00 Attending/Attestation - Attestation I have personally seen and examined this patient.: Yes I have fully participated in the care of the patient.: Yes I have reviewed all pertinent clinical information, including history, physical exam and plan: Yes Notes (Text): 1. Autoimmune Hepatitis -Continue Imuran and Prednisone -LFT trending down. 2. UTI blood culture and urine culture: no growth continue IV Cipro
[2018-03-09 23:38] VITALS: TEMP 97.9; O2SAT 96
[2018-03-10] MEDS ORDERED: Alum-Mag Hydrox-Simethicone Susp (30 mL) PO ONE (05:38)
[2018-03-10 06:41] LABS: HEMOGLOBIN 10.9 g/dL (12.0-16.0); MEAN CELL VOLUME 85.4 fl (81.0-99.0); MEAN CORPUSCULAR HEMOGLOBIN 28.5 pg (27.0-31.0); MEAN CORPUSCULAR HGB CONC 33.3 g/dL (33.0-37.0); RBC 3.83 Mil/uL (3.80-5.20); RED CELL DISTRIBUTION WIDTH 21.1 % (11.5-14.5); WHITE BLOOD COUNT 8.7 K/uL (4.8-10.8)
[2018-03-10 07:41] LABS: ALB/GLOB RATIO 0.6 (1.0-2.1); ALBUMIN 2.5 g/dL (3.5-5.0); BILIRUBIN,DIRECT 3.6 mg/ml (0.0-0.4)
[2018-03-10 07:47] VITALS: BP 145/81; PULSE 56; RESP 19
[2018-03-10] MEDS: Ciprofloxacin 400mg/200ml D5W 400 MG/200 ML BAG IVPB SCH (09:01)
[2018-03-10] MEDS: Pantoprazole 40 mg EC Tab PO SCH (09:02)
--- NOTE | 2018-03-10 10:02 | CP.PCM.DIS ---
<Kina Price - Last Filed: 03/10/18 15:52> Provider - Provider Date of Admission: 03/06/18 12:22 Attending physician: Moy Vázquez MD Time Spent in preparation of Discharge (in minutes): 34 Diagnosis - Discharge Diagnosis (1) Gastritis Status: Acute Comment: Protonix 40mg po d during hospital course. '. Ducolax was given due to constipation. (2) UTI (urinary tract infection) Status: Acute Comment: Suspected UTI. Patient was given Cipro and is being discharged on cipro. (3) Autoimmune hepatitis Status: Acute Comment: throughout the hospital course the LFT's have shown improvement. Continue her current treatment of Azathioprine and prednisone. Patient to follow up with Dr. Calderon in his office. (4) HTN (hypertension) Status: Chronic Comment: controlled. (5) DVT prophylaxis Status: Acute Comment: encouraged to ambulate. Hospital Course - Lab Results Lab Results: Micro Results 03/06/18 15:25 Blood-Venous Blood Culture - Preliminary NO GROWTH AFTER 3 DAYS 03/06/18 15:15 Blood-Venous Blood Culture - Preliminary NO GROWTH AFTER 3 DAYS 03/06/18 17:38 Urine,Clean Catch Urine Culture - Final No Growth (<1,000 CFU/ML) Most Recent Lab Values WBC 8.7 K/uL (4.8-10.8) 03/10/18 05:35 RBC 3.83 Mil/uL (3.80-5.20) 03/10/18 05:35 Hgb 10.9 g/dL (12.0-16.0) L 03/10/18 05:35 Hct 32.7 % (34.0-47.0) L 03/10/18 05:35 MCV 85.4 fl (81.0-99.0) 03/10/18 05:35 MCH 28.5 pg (27.0-31.0) 03/10/18 05:35 MCHC 33.3 g/dL (33.0-37.0) 03/10/18 05:35 RDW 21.1 % (11.5-14.5) H 03/10/18 05:35 Plt Count 177 K/uL (130-400) 03/10/18 05:35 MPV 11.4 fl (7.2-11.7) 03/07/18 05:20 Neut % (Auto) 73.9 % (50.0-75.0) 03/07/18 05:20 Lymph % (Auto) 21.0 % (20.0-40.0) 03/07/18 05:20 [place] % (Auto) 4.3 % (0.0-10.0) 03/07/18 05:20 Eos % (Auto) 0.2 % (0.0-4.0) 03/07/18 05:20 Baso % (Auto) 0.6 % (0.0-2.0) 03/07/18 05:20 Neut # (Auto) 4.3 K/uL (1.8-7.0) 03/07/18 05:20 Lymph # (Auto) 1.2 K/uL (1.0-4.3) 03/07/18 05:20 [place] # (Auto) 0.3 K/uL (0.0-0.8) 03/07/18 05:20 Eos # (Auto) 0.0 K/uL (0.0-0.7) 03/07/18 05:20 Baso # (Auto) 0.0 K/uL (0.0-0.2) 03/07/18 05:20 PT 25.1 Seconds (9.8-13.1) H 03/07/18 09:00 INR 2.2 (0.9-1.2) H 03/07/18 09:00 Sodium 142 mmol/l (132-148) 03/09/18 05:45 Potassium 4.7 MMOL/L (3.6-5.0) 03/09/18 05:45 Chloride 112 mmol/L (98-107) H 03/09/18 05:45 Carbon Dioxide 23 mmol/L (22-30) 03/09/18 05:45 Anion Gap 12 (10-20) 03/09/18 05:45 BUN 16 mg/dl (7-17) 03/09/18 05:45 Creatinine 0.6 mg/dl (0.7-1.2) L 03/09/18 05:45 Est GFR ( Amer) > 60 03/09/18 05:45 Est GFR (Non-Af Amer) > 60 03/09/18 05:45 Random Glucose 140 mg/dL (65-105) H 03/09/18 05:45 Calcium 8.0 mg/dL (8.4-10.2) L 03/09/18 05:45 Total Bilirubin 5.0 mg/dl (0.2-1.3) H 03/10/18 05:35 Direct Bilirubin 3.6 mg/ml (0.0-0.4) H 03/10/18 05:35 AST 407 U/L (14-36) H D 03/10/18 05:35 ALT 152 U/L (9-52) H 03/10/18 05:35 Alkaline Phosphatase 120 U/L (38-126) 03/10/18 05:35 Ammonia 27 umo/L (11-51) 03/06/18 12:45 Total Protein 7.0 G/DL (6.3-8.2) 03/10/18 05:35 Albumin 2.5 g/dL (3.5-5.0) L 03/10/18 05:35 Globulin 4.4 gm/dL (2.2-3.9) H 03/10/18 05:35 Albumin/Globulin Ratio 0.6 (1.0-2.1) L 03/10/18 05:35 Urine Color Aretha (YELLOW) 03/06/18 11:20 Urine Clarity Slighty-cloudy (Clear) 03/06/18 11:20 Urine pH 6.0 (5.0-8.0) 03/06/18 11:20 Ur Specific [place] 1.019 (1.003-1.030) 03/06/18 11:20 Urine Protein Negative mg/dL (NEGATIVE) 03/06/18 11:20 Urine Glucose (UA) Neg mg/dL (Normal) 03/06/18 11:20 Urine Ketones Negative mg/dL (NEGATIVE) 03/06/18 11:20 Urine Blood Negative (NEGATIVE) 03/06/18 11:20 Urine Nitrate Negative (NEGATIVE) 03/06/18 11:20 Urine Bilirubin Moderate (NEGATIVE) 03/06/18 11:20 Urine Urobilinogen 4.0 mg/dL (0.2-1.0) H 03/06/18 11:20 Ur Leukocyte Esterase Trace [place]/uL (Negative) 03/06/18 11:20 Urine RBC (Auto) 8 /hpf (0-3) H 03/06/18 11:20 Urine Microscopic WBC 19 /hpf (0-5) H 03/06/18 11:20 Ur Squamous Epith Cells 1 /hpf (0-5) 03/06/18 11:20 Ur Renal Epithelial Cell 1 /hpf (0-3) 03/06/18 11:20 Stool Occult Blood Negative (NEGATIVE) 03/09/18 18:30 Hepatitis A IgM Ab Negative (NEGATIVE) 03/06/18 15:15 Hep Bs Antigen Negative (NEGATIVE) 03/06/18 15:15 Hep B Core IgM Ab Negative (NEGATIVE) 03/06/18 15:15 Hepatitis C Antibody Negative (NEGATIVE) 03/06/18 15:15 - Hospital Course Hospital Course: 67 yo female with history of Autoimmune Hepatitis, HTN, HLD, Nephrolithiasis and Gastritis brought in by because of abdominal pain associated with severe nausea and jaundice since 6 days ago. Denied vomiting or diarrhea. Noted having fever of 102 and black stools yesterday. Patient was found to have elevated LFT's- initially in the 1000's but throughout her hospital stay they continuously trended down. Dr. Calderon was consulted and he stated to continue her azathioprine treatment alone with the prednisone. She is to follow up in the office with him. Discharge Exam - Head Exam Head Exam: NORMAL INSPECTION - Eye Exam Eye Exam: Normal appearance - ENT Exam ENT Exam: Mucous Membranes Moist, Normal Oropharynx - Respiratory Exam Respiratory Exam: NORMAL BREATHING PATTERN, UNREMARKABLE. absent: Chest Wall Tenderness, Decreased Breath Sounds, Prolonged Expiratory Phase, Rales, Rhonchi , Wheezes, Respiratory Distress, Stridor - Cardiovascular Exam Cardiovascular Exam: REGULAR RHYTHM, RRR, +S1, +S2. absent: Clicks, Diastolic murmur, Gallop, Rubs, +S4, Systolic Murmur - GI/Abdominal Exam GI & Abdominal Exam: Distended, Normal Bowel Sounds, Soft, Unremarkable. absent : Firm, Guarding, Organomegaly, Pulsatile Mass, Rebound, Tenderness - Extremities Exam Extremities exam: normal inspection - Neurological Exam Neurological exam: Alert, Normal Gait, Oriented x3 - Psychiatric Exam Psychiatric exam: Normal Affect, Normal Mood - Skin Skin Exam: Dry, Intact, Normal Color, Warm Discharge Plan - Discharge Medications Prescriptions: azaTHIOprine [Imuran] 50 mg PO DAILY #30 tab Ciprofloxacin HCl [Cipro] 500 mg PO BID #6 tablet predniSONE [predniSONE Tab] 30 mg PO BID #60 tab - Follow Up Plan Condition: FAIR Disposition: HOME/ ROUTINE Instructions: Jaundice in Adults, Urinary Tract Infection, Adult (DC), Gastritis (DC) Additional Instructions: salena con orr doctor primario dentro de 1 semana Referrals: Cezar Shaw [Family Provider] - Donovan Calderon MD [Staff Provider] - <Renato Lindquist - Last Filed: 03/10/18 16:51> Provider - Provider Date of Admission: 03/06/18 12:22 Attending physician: Moy Vázquez MD Time Spent in preparation of Discharge (in minutes): 34 Hospital Course - Lab Results Lab Results: Micro Results 03/06/18 15:25 Blood-Venous Blood Culture - Preliminary NO GROWTH AFTER 4 DAYS 03/06/18 15:15 Blood-Venous Blood Culture - Preliminary NO GROWTH AFTER 4 DAYS 03/06/18 17:38 Urine,Clean Catch Urine Culture - Final No Growth (<1,000 CFU/ML) Most Recent Lab Values WBC 8.7 K/uL (4.8-10.8) 03/10/18 05:35 RBC 3.83 Mil/uL (3.80-5.20) 03/10/18 05:35 Hgb 10.9 g/dL (12.0-16.0) L 03/10/18 05:35 Hct 32.7 % (34.0-47.0) L 03/10/18 05:35 MCV 85.4 fl (81.0-99.0) 03/10/18 05:35 MCH 28.5 pg (27.0-31.0) 03/10/18 05:35 MCHC 33.3 g/dL (33.0-37.0) 03/10/18 05:35 RDW 21.1 % (11.5-14.5) H 03/10/18 05:35 Plt Count 177 K/uL (130-400) 03/10/18 05:35 MPV 11.4 fl (7.2-11.7) 03/07/18 05:20 Neut % (Auto) 73.9 % (50.0-75.0) 03/07/18 05:20 Lymph % (Auto) 21.0 % (20.0-40.0) 03/07/18 05:20 [place] % (Auto) 4.3 % (0.0-10.0) 03/07/18 05:20 Eos % (Auto) 0.2 % (0.0-4.0) 03/07/18 05:20 Baso % (Auto) 0.6 % (0.0-2.0) 03/07/18 05:20 Neut # (Auto) 4.3 K/uL (1.8-7.0) 03/07/18 05:20 Lymph # (Auto) 1.2 K/uL (1.0-4.3) 03/07/18 05:20 [place] # (Auto) 0.3 K/uL (0.0-0.8) 03/07/18 05:20 Eos # (Auto) 0.0 K/uL (0.0-0.7) 03/07/18 05:20 Baso # (Auto) 0.0 K/uL (0.0-0.2) 03/07/18 05:20 PT 25.1 Seconds (9.8-13.1) H 03/07/18 09:00 INR 2.2 (0.9-1.2) H 03/07/18 09:00 Sodium 142 mmol/l (132-148) 03/09/18 05:45 Potassium 4.7 MMOL/L (3.6-5.0) 03/09/18 05:45 Chloride 112 mmol/L (98-107) H 03/09/18 05:45 Carbon Dioxide 23 mmol/L (22-30) 03/09/18 05:45 Anion Gap 12 (10-20) 03/09/18 05:45 BUN 16 mg/dl (7-17) 03/09/18 05:45 Creatinine 0.6 mg/dl (0.7-1.2) L 03/09/18 05:45 Est GFR ( Amer) > 60 03/09/18 05:45 Est GFR (Non-Af Amer) > 60 03/09/18 05:45 Random Glucose 140 mg/dL (65-105) H 03/09/18 05:45 Calcium 8.0 mg/dL (8.4-10.2) L 03/09/18 05:45 Total Bilirubin 5.0 mg/dl (0.2-1.3) H 03/10/18 05:35 Direct Bilirubin 3.6 mg/ml (0.0-0.4) H 03/10/18 05:35 AST 407 U/L (14-36) H D 03/10/18 05:35 ALT 152 U/L (9-52) H 03/10/18 05:35 Alkaline Phosphatase 120 U/L (38-126) 03/10/18 05:35 Ammonia 27 umo/L (11-51) 03/06/18 12:45 Total Protein 7.0 G/DL (6.3-8.2) 03/10/18 05:35 Albumin 2.5 g/dL (3.5-5.0) L 03/10/18 05:35 Globulin 4.4 gm/dL (2.2-3.9) H 03/10/18 05:35 Albumin/Globulin Ratio 0.6 (1.0-2.1) L 03/10/18 05:35 Urine Color [place] (YELLOW) 03/06/18 11:20 Urine Clarity Slighty-cloudy (Clear) 03/06/18 11:20 Urine pH 6.0 (5.0-8.0) 03/06/18 11:20 Ur Specific [place] 1.019 (1.003-1.030) 03/06/18 11:20 Urine Protein Negative mg/dL (NEGATIVE) 03/06/18 11:20 Urine Glucose (UA) Neg mg/dL (Normal) 03/06/18 11:20 Urine Ketones Negative mg/dL (NEGATIVE) 03/06/18 11:20 Urine Blood Negative (NEGATIVE) 03/06/18 11:20 Urine Nitrate Negative (NEGATIVE) 03/06/18 11:20 Urine Bilirubin Moderate (NEGATIVE) 03/06/18 11:20 Urine Urobilinogen 4.0 mg/dL (0.2-1.0) H 03/06/18 11:20 Ur Leukocyte Esterase Trace [place]/uL (Negative) 03/06/18 11:20 Urine RBC (Auto) 8 /hpf (0-3) H 03/06/18 11:20 Urine Microscopic WBC 19 /hpf (0-5) H 03/06/18 11:20 Ur Squamous Epith Cells 1 /hpf (0-5) 03/06/18 11:20 Ur Renal Epithelial Cell 1 /hpf (0-3) 03/06/18 11:20 Stool Occult Blood Negative (NEGATIVE) 03/09/18 18:30 Hepatitis A IgM Ab Negative (NEGATIVE) 03/06/18 15:15 Hep Bs Antigen Negative (NEGATIVE) 03/06/18 15:15 Hep B Core IgM Ab Negative (NEGATIVE) 03/06/18 15:15 Hepatitis C Antibody Negative (NEGATIVE) 03/06/18 15:15 Attending/Attestation - Attestation I have personally seen and examined this patient.: Yes I have fully participated in the care of the patient.: Yes I have reviewed all pertinent clinical information, including history, physical exam and plan: Yes Notes (Text): 1. Autoimmune Hepatitis -Continue Imuran and Prednisone -LFT trending down. -Dr. Calderon to follow and taper as outpatient 2. UTI - suspected blood culture and urine culture: no growth emperically treat as cultures can be missed yasmin patient will be immuno suppressed 3. Constipation resolved 4. Gastritis cont protonix
--- NOTE | 2018-03-10 10:23 | CP.PCM.PN ---
Subjective - Date & Time of Evaluation Date of Evaluation: 03/10/18 Time of Evaluation: 09:30 - Subjective Subjective: Patient generally doing well. Still with abdominal discomfort. Objective - Vital Signs/Intake and Output Vital Signs (last 24 hours): Temp Pulse Resp BP Pulse Ox 97.9 F 56 L 19 145/81 96 03/10/18 07:46 03/10/18 07:46 03/10/18 07:46 03/10/18 07:46 03/10/18 07:46 - Medications Medications: Current Medications Azathioprine (Imuran) 50 mg PO DAILY [facility] Last Admin: 03/10/18 09:02 Dose: 50 mg Ciprofloxacin (Cipro 400mg/200ml Dsw) 400 mg in 200 mls @ 200 mls/hr IVPB Q12 [facility] PRN Reason: Protocol Last Admin: 03/10/18 09:01 Dose: 200 mls/hr Magnesium Hydroxide (Milk Of Magnesia) 30 ml PO DAILY PRN PRN Reason: Constipation Last Admin: 03/08/18 12:45 Dose: 30 ml Pantoprazole Sodium (Protonix Ec Tab) 40 mg PO DAILY [facility] Last Admin: 03/10/18 09:02 Dose: 40 mg Prednisone (Prednisone Tab) 30 mg PO BID [facility] Last Admin: 03/10/18 09:02 Dose: 30 mg - Labs Labs: 03/10/18 05:35 03/09/18 05:45 PT 25.1 Seconds (9.8-13.1) H 03/07/18 09:00 INR 2.2 (0.9-1.2) H 03/07/18 09:00 - Head Exam Head Exam: ATRAUMATIC - Eye Exam Eye Exam: Normal appearance - ENT Exam ENT Exam: Mucous Membranes Moist - Neck Exam Neck Exam: Normal Inspection - Respiratory Exam Respiratory Exam: Clear to Ausculation Bilateral - Cardiovascular Exam Cardiovascular Exam: REGULAR RHYTHM - GI/Abdominal Exam GI & Abdominal Exam: Soft, Normal Bowel Sounds. absent: Tenderness Assessment and Plan (1) Jaundice due to hepatitis Status: Acute (2) Autoimmune hepatitis Assessment & Plan: LFTs continuing to improve. Continue AZT and prednisone for now. See me in office after discharge. Status: Acute (3) Autoimmune hepatitis Status: Acute
[2018-03-10] MEDS ORDERED: Simethicone 80 mg Chewtab PO STA (10:36)
== END 2018-03-10 13:33 | disposition home or self-care (01) | DRG 442 ==
LOC: H.ER 09:39 → H.ERHOLD 12:22 → H.MEDSURG1 14:50
DX: K75.4 Autoimmune hepatitis (principal); N39.0 Urinary tract infection, site not specified; K29.00 Acute gastritis without bleeding; I25.10 Atherosclerotic heart disease of native coronary artery without angina pectoris; I10 Essential (primary) hypertension; K59.00 Constipation, unspecified; E78.5 Hyperlipidemia, unspecified; J45.909 Unspecified asthma, uncomplicated; E78.00 Pure hypercholesterolemia, unspecified; F41.9 Anxiety disorder, unspecified; M19.90 Unspecified osteoarthritis, unspecified site; Z87.01 Personal history of pneumonia (recurrent); Z87.442 Personal history of urinary calculi; Z79.899 Other long term (current) drug therapy; Z88.6 Allergy status to analgesic agent; Z91.010 Allergy to peanuts

== ENCOUNTER 2018-10-15 20:49 | Observation (INO) | payer MEDICARE, MEDICAID ==
[2018-10-15 20:49] VITALS: BMI 35.2
--- NOTE | 2018-10-15 21:56 | ED PDOC ---
HPI: Chest Pain Time Seen by Provider: 10/15/18 21:00 Chief Complaint (Nursing): Chest Pain Chief Complaint (Provider): Chest pain History Per: Patient, Bar Porter (Jamalyce [id number]) History/Exam Limitations: no limitations Onset/Duration Of Symptoms: Hrs (x6) Current Symptoms Are (Timing): Still Present Additional Complaint(s): 67 year old female presents to the ED with son complaining of chest pain and back pain since 16:00. Patient reports having a fever, nausea, trouble breathing, and cough with blood. She denies vomiting. Son reports patient has liver cirrhosis and was recently diagnosed with autoimmune hepatitis and currently has a stone in her galll bladder. Son states that patient was being treated for Hepatitis for about year but it has returned again. PMD: Dr. Shaw Research Microbiologist: Dr. Antoine Past Medical History Reviewed: Historical Data, Nursing Documentation, Vital Signs Vital Signs: Last Vital Signs Temp 99.5 F 10/15/18 21:06 Pulse 82 10/15/18 21:06 Resp 18 10/15/18 21:06 BP 155/94 H 10/15/18 21:06 Pulse Ox 100 10/15/18 21:06 - Medical History PMH: Anxiety, Arthritis, Asthma, Bronchitis, CAD, Depression, Diverticulitis, Fractures, Gastritis, Hepatitis (Autoimmune hepatitis), HTN, Hypercholesterolemia, Kidney Stones, Migraine, Pneumonia (treated as outpt in May 2016) Denies: HIV, Chronic Kidney Disease Other PMH: Liver cirrhosis - Surgical History Other surgeries: Knee and shoulder surgery - Family History Family History: States: Unknown Family Hx - Social History Current smoker - smoking cessation education provided: No Alcohol: None Drugs: Denies - Immunization History Hx Tetanus Toxoid Vaccination: No Hx Influenza Vaccination: No Hx Pneumococcal Vaccination: No - Home Medications Home Medications: Ambulatory Orders Medication Instructions Recorded Carvedilol [Coreg] 6.25 mg PO BID 10/15/18 Losartan [Cozaar] 100 mg PO DAILY 10/15/18 Pantoprazole Sodium [Protonix] 40 mg PO BID #60 ect 10/17/18 traMADol [Ultram] 50 mg PO TID PRN #10 tab 10/17/18 - Allergies Allergies/Adverse Reactions: Allergies Allergy/AdvReac Type Severity Reaction Status Date / Time codeine Allergy RASH Verified 10/15/18 20:55 peanut Allergy RASH Verified 10/15/18 20:55 Review of Systems ROS Statement: Except As Marked, All Systems Reviewed And Found Negative Constitutional: Positive for: Fever Cardiovascular: Positive for: Chest Pain Respiratory: Positive for: Cough, Shortness of Breath Gastrointestinal: Positive for: Nausea. Negative for: Vomiting Musculoskeletal: Positive for: Back Pain Physical Exam - Reviewed Nursing Documentation Reviewed: Yes Vital Signs Reviewed: Yes - Physical Exam Appears: Positive for: Uncomfortable Head Exam: Positive for: ATRAUMATIC, NORMOCEPHALIC Skin: Positive for: Normal Color, Warm, Dry Eye Exam: Positive for: Normal appearance Neck: Positive for: Normal, Painless ROM Cardiovascular/Chest: Positive for: Regular Rate, Rhythm Respiratory: Positive for: Normal Breath Sounds. Negative for: Wheezing, R espiratory Distress Gastrointestinal/Abdominal: Positive for: Normal Exam, Soft. Negative for: Tenderness Extremity: Positive for: Normal ROM Neurological/Psych: Positive for: Awake, Alert, Normal Tone, Oriented - Laboratory Results Result Diagrams: 10/17/18 05:30 10/17/18 05:30 - ECG ECG Rhythm: Positive for: Sinus Rhythm Rate: 80 O2 Sat by Pulse Oximetry: 100 (RA) Pulse Ox Interpretation: Normal Medical Decision Making Medical Decision Making: Initial Impression: Chest and back pain Initial Plan: --ECG --CMP --CBC --Prothrombin time --Chest X-ray --Influenza A B stat Time: 33 --Patient developed low grade fever, is flu negative, CXR does not suggest pneumonia. Patient will be admitted under hospitalist, Dr. Grimes, for observation and telemetry for chest pain. Case discussed with hospitalist who is aware of plan of care. Time: 44 --Patient cannot receive any medications like aspirin, due to her liver. However, son states she can have Tramadol. Scribe Attestation: Documented by Jermaine oTbin acting as a scribe for Yaritza Hodges MD. Provider Scribe Attestation: All medical record entries made by the Scribe were at my direction and personally dictated by me. I have reviewed the chart and agree that the record accurately reflects my personal performance of the history, physical exam, medical decision making, and the department course for this patient. I have also personally directed, reviewed, and agree with the discharge instructions and disposition. Disposition - Clinical Impression Clinical Impression: Chest pain, Autoimmune hepatitis - Patient ED Disposition Is Patient to be Admitted: Yes - Disposition Disposition Time: 00:30 Condition: STABLE
[2018-10-15 22:53] LABS: BASO % 0.7 % (0.0-2.0); EOS # 0.2 K/uL (0.0-0.7); EOS % 3.1 % (0.0-4.0); LYMPH # 2.5 K/uL (1.0-4.3); LYMPH % 38.3 % (20.0-40.0); MEAN CELL VOLUME 87.7 fl (81.0-99.0); MEAN CORPUSCULAR HEMOGLOBIN 28.6 pg (27.0-31.0); MEAN CORPUSCULAR HGB CONC 32.6 g/dL (33.0-37.0); MEAN PLATELET VOLUME 10.7 fl (7.2-11.7); MONO # 0.7 K/uL (0.0-0.8); NEUT # 3.1 K/uL (1.8-7.0); NEUT % 47.9 % (50.0-75.0); NRBC % 0.2 % (0.0-0.0); RBC 4.2 Mil/uL (3.80-5.20); RED CELL DISTRIBUTION WIDTH 16.6 % (11.5-14.5); WHITE BLOOD COUNT 6.5 K/uL (4.8-10.8)
[2018-10-15 23:00] LABS: ALB/GLOB RATIO 0.8 (1.0-2.1); ALBUMIN 3.5 g/dL (3.5-5.0); ALT/SGPT 16 U/L (9-52); AST/SGOT 50 U/L (14-36); BLOOD UREA NITROGEN 19 mg/dl (7-17); CALCIUM 8.8 mg/dL (8.4-10.2); GFR NON-AFRICAN AMERICAN > 60; INR 1.6; PROTHROMBIN TIME 17.7 Seconds (9.8-13.1)
[2018-10-16 01:27] LABS: LIPASE 88 U/L (23-300)
--- NOTE | 2018-10-16 01:58 | CP.PCM.HP ---
<Sultan Erin - Last Filed: 10/16/18 02:35> History of Present Illness - History of Present Illness History of Present Illness: CC: chest pain HPI: 67 year old Female with PMHx HTN, HLD, gastritis, autoimmune hepatitis, renal stone accompanied by her son and presents to [facility] ED for e valuation of chest pain. Patient reports dull substernal chest pain (7/10) that radiates to back that started yesterday afternoon around 4 pm associated with shortness of breath and subjective fever. Patient reports intermittent dry nonproductive cough x 2 months. Patient also reports intermittent bringing up blood in the morning for last 6 months, however denies any productive cough or vomiting. +night sweats but denies any weight loss. Last visit to [place] was 3 months ago. Denies any hx TB or sick contact with TB. Patient reports last EGD was done in 05/2018 in [place]. States she does not take autoimmune hepatitis medications for last 8 months. Reports possible hx ?cardiac cath in 2002 but no follow up with torpedo man since then. In the ED, ROS: All 12 systems reviewed and negative except as mentioned in HPI PMD: Dr. Shaw Water Operator: Dr. Antoine PMHx: HTN, Hyperlipidemia, autoimmune hepatitis, multiple kidney stones, ?CAD, gastritis, gallstone Surgical Hx: b/l knee surgery, shoulder surgery, ?Cardiac cath Family Hx: mother has hx stroke and CAD Social Hx: Lives at home, denies EtOH or tobacco Allergies: Codeine and peanut Meds: coreg 6.25 mg po bid and Losartan 100 mg po daily. Present on Admission - Present on Admission Any Indicators Present on Admission: No Review of Systems - Review of Systems Review of Systems: All 12 systems reviewed and negative except as mentioned in HPI Past Patient History - Tetanus Immunizations Tetanus Immunization: Unknown - Past Medical History & Family History Past Medical History?: Yes - Past Social History Alcohol: None Drugs: Denies - CARDIAC Hx Hypercholesterolemia: Yes Hx Hypertension: Yes - PULMONARY Hx Asthma: Yes Hx Bronchitis: Yes Hx Pneumonia: Yes (treated as outpt in May 2016) - NEUROLOGICAL Hx Migraine: Yes - HEENT Hx HEENT Problems: No - RENAL Hx Chronic Kidney Disease: No Hx Kidney Stones: Yes - ENDOCRINE/METABOLIC Hx Endocrine Disorders: No - HEMATOLOGICAL/ONCOLOGICAL Hx Human Immunodeficiency Virus (HIV): No - INTEGUMENTARY Hx Dermatological Problems: No - MUSCULOSKELETAL/RHEUMATOLOGICAL Hx Arthritis: Yes Hx Fractures: Yes - GASTROINTESTINAL Hx Diverticulitis: Yes Hx Gastritis: Yes - GENITOURINARY/GYNECOLOGICAL Hx Genitourinary Disorders: Yes Other/Comment: kidney stone - PSYCHIATRIC Hx Anxiety: Yes Hx Depression: Yes - SURGICAL HISTORY Hx Surgeries: Yes Hx Orthopedic Surgery: Yes (bilateral shoulder, right kne arthroscopy) Other/Comment: JASON. SHOULDER SURGERY - ANESTHESIA Hx Anesthesia: Yes Hx Anesthesia Reactions: No Hx Malignant Hyperthermia: No Meds Allergies/Adverse Reactions: Allergies Allergy/AdvReac Type Severity Reaction Status Date / Time codeine Allergy RASH Verified 10/15/18 20:55 peanut Allergy RASH Verified 10/15/18 20:55 Physical Exam - Constitutional Appears: No Acute Distress - Head Exam Head Exam: NORMAL INSPECTION - Eye Exam Eye Exam: Normal appearance - ENT Exam ENT Exam: Mucous Membranes Moist - Neck Exam Neck exam: Positive for: Normal Inspection - Respiratory Exam Respiratory Exam: Clear to Auscultation Bilateral, Rales (on right lung base), NORMAL BREATHING PATTERN. absent: Wheezes, Respiratory Distress - Cardiovascular Exam Cardiovascular Exam: REGULAR RHYTHM, +S1, +S2. absent: JVD - GI/Abdominal Exam GI & Abdominal Exam: Normal Bowel Sounds, Soft. absent: Distended, Guarding, R ebound, Rigid Additional comments: Moderate epigastric and substernal tenderness - Extremities Exam Extremities exam: Positive for: normal inspection. Negative for: calf tenderness - Neurological Exam Neurological exam: Alert, Oriented x3 - Psychiatric Exam Psychiatric exam: Normal Affect - Skin Skin Exam: Normal Color Results - Vital Signs Recent Vital Signs: Last Vital Signs Temp 100.1 F H 10/15/18 23:14 Pulse 80 10/16/18 01:12 Resp 19 10/16/18 00:56 BP 113/72 10/15/18 23:14 Pulse Ox 100 10/16/18 01:12 - Labs Result Diagrams: 10/15/18 21:15 10/15/18 21:15 Labs: Laboratory Results - last 24 hr 10/15/18 10/15/18 10/15/18 21:15 21:15 21:15 WBC 6.5 RBC 4.20 Hgb 12.0 Hct 36.8 MCV 87.7 D MCH 28.6 MCHC 32.6 L RDW 16.6 H Plt Count 125 L MPV 10.7 Neut % (Auto) 47.9 L Lymph % (Auto) 38.3 [place] % (Auto) 10.0 Eos % (Auto) 3.1 Baso % (Auto) 0.7 Neut # (Auto) 3.1 Lymph # (Auto) 2.5 [place] # (Auto) 0.7 Eos # (Auto) 0.2 Baso # (Auto) 0.0 PT 17.7 H INR 1.6 Sodium 141 Potassium 3.9 Chloride 105 Carbon Dioxide 27 Anion Gap 13 BUN 19 H Creatinine 0.6 L Est GFR ( Amer) > 60 Est GFR (Non-Af Amer) > 60 Random Glucose 95 Calcium 8.8 Total Bilirubin 1.4 H AST 50 H D ALT 16 Alkaline Phosphatase 97 Troponin I Total Protein 8.0 Albumin 3.5 D Globulin 4.5 H Albumin/Globulin Ratio 0.8 L Lipase Influenza Typ A,B (EIA) 10/15/18 10/16/18 21:15 01:16 WBC RBC Hgb Hct MCV MCH MCHC RDW Plt Count MPV Neut % (Auto) Lymph % (Auto) [place] % (Auto) Eos % (Auto) Baso % (Auto) Neut # (Auto) Lymph # (Auto) [place] # (Auto) Eos # (Auto) Baso # (Auto) PT INR Sodium Potassium Chloride Carbon Dioxide Anion Gap BUN Creatinine Est GFR ( Amer) Est GFR (Non-Af Amer) Random Glucose Calcium Total Bilirubin AST ALT Alkaline Phosphatase Troponin I < 0.0120 Total Protein Albumin Globulin Albumin/Globulin Ratio Lipase 88 Influenza Typ A,B (EIA) Negative for flu a/b Assessment & Plan - Assessment and Plan (Free Text) Assessment: 67 year old Female with PMHx HTN, HLD, gastritis, autoimmune hepatitis, renal stone accompanied by her son and presents to [facility] ED for evaluation of chest pain. Patient reports dull substernal chest pain (7/10) that radiates to back that started yesterday afternoon around 4 pm associated with shortness of breath and subjective fever. In ED, ECG shows NSR@80 bpm, No ST/T wave changes. Troponin x 1 neg. CXR neg for acute infiltrate. Patient is admitted for chest pain evaluation. Plan: Chest pain, r/o ACS -Admit to telemetry -Stable vitals -? cardiac cath in 2002 but never followed up with a torpedo man -ECG shows NSR@80 bpm, No ST/T wave changes. -Troponin x 1 neg -CXR neg for acute infiltrate -f/u troponin x 2 Gastritis with Epigastic tenderness -H&H .8 -Protonix 40 mg IVP QD -GI consult- Dr. Calderon (last EGD at [facility] done by Dr. Calderon in 11/2016) -Obtain record of last EGD done in [place] in 05/2018 ?Hemoptysis -consider pulmonary consult in the AM and CT chest -consider outpatient bronchoscopy Hx autoimmune hepatitis -has outpatient GI apt on 10/22/18 Hypertension -Resume home medications DVT prophylaxis -SCDS now Patient seen, examined and plan discussed with Dr. Cornelio Khan, pgy-2 <Perez Grimes M - Last Filed: 10/16/18 07:10> Results - Vital Signs Recent Vital Signs: Last Vital Signs Temp 98 F 10/16/18 05:53 Pulse 61 10/16/18 05:53 Resp 15 10/16/18 05:53 BP 100/43 L 10/16/18 05:53 Pulse Ox 99 10/16/18 05:53 - Labs Result Diagrams: 10/16/18 05:30 10/16/18 05:30 Labs: Laboratory Results - last 24 hr 10/15/18 10/15/18 10/15/18 21:15 21:15 21:15 WBC 6.5 RBC 4.20 Hgb 12.0 Hct 36.8 MCV 87.7 D MCH 28.6 MCHC 32.6 L RDW 16.6 H Plt Count 125 L MPV 10.7 Neut % (Auto) 47.9 L Lymph % (Auto) 38.3 [place] % (Auto) 10.0 Eos % (Auto) 3.1 Baso % (Auto) 0.7 Neut # (Auto) 3.1 Lymph # (Auto) 2.5 [place] # (Auto) 0.7 Eos # (Auto) 0.2 Baso # (Auto) 0.0 PT 17.7 H INR 1.6 Sodium 141 Potassium 3.9 Chloride 105 Carbon Dioxide 27 Anion Gap 13 BUN 19 H Creatinine 0.6 L Est GFR ( Amer) > 60 Est GFR (Non-Af Amer) > 60 Random Glucose 95 Calcium 8.8 Phosphorus Magnesium Total Bilirubin 1.4 H AST 50 H D ALT 16 Alkaline Phosphatase 97 Troponin I NT-Pro-B Natriuret Pep Total Protein 8.0 Albumin 3.5 D Globulin 4.5 H Albumin/Globulin Ratio 0.8 L Lipase Influenza Typ A,B (EIA) 10/15/18 10/16/18 10/16/18 21:15 01:16 05:30 WBC RBC Hgb Hct MCV MCH MCHC RDW Plt Count MPV Neut % (Auto) Lymph % (Auto) [place] % (Auto) Eos % (Auto) Baso % (Auto) Neut # (Auto) Lymph # (Auto) [place] # (Auto) Eos # (Auto) Baso # (Auto) PT INR Sodium 141 Potassium 3.7 Chloride 106 Carbon Dioxide 28 Anion Gap 11 BUN 19 H Creatinine 0.7 Est GFR ( Amer) > 60 Est GFR (Non-Af Amer) > 60 Random Glucose 96 Calcium 8.5 Phosphorus 3.8 Magnesium 1.7 Total Bilirubin 2.0 H AST 42 H ALT 14 Alkaline Phosphatase 76 Troponin I < 0.0120 NT-Pro-B Natriuret Pep 231 Total Protein 7.1 Albumin 2.9 L Globulin 4.2 H Albumin/Globulin Ratio 0.7 L Lipase 88 Influenza Typ A,B (EIA) Negative for flu a/b 10/16/18 05:30 WBC 7.5 RBC 3.86 Hgb 11.1 L Hct 33.5 L MCV 87.0 MCH 28.8 MCHC 33.2 RDW 15.9 H Plt Count 109 L MPV 9.7 Neut % (Auto) 40.2 L Lymph % (Auto) 47.5 H Evans % (Auto) 8.6 Eos % (Auto) 2.9 Baso % (Auto) 0.8 Neut # (Auto) 3.0 Lymph # (Auto) 3.6 Evans # (Auto) 0.7 Eos # (Auto) 0.2 Baso # (Auto) 0.1 PT INR Sodium Potassium Chloride Carbon Dioxide Anion Gap BUN Creatinine Est GFR ( Amer) Est GFR (Non-Af Amer) Random Glucose Calcium Phosphorus Magnesium Total Bilirubin AST ALT Alkaline Phosphatase Troponin I NT-Pro-B Natriuret Pep Total Protein Albumin Globulin Albumin/Globulin Ratio Lipase Influenza Typ A,B (EIA) Assessment & Plan - Assessment and Plan (Free Text) Plan: History as documented by resident was reviewed with patient and resident. I personally performed the mary elements of physical exam and agree with the above findings. Diagnostics reviewed. X-ray and EKG as above interpreted by me. Medical decision making and plan of care performed by me. 67 yo female with hx of HTN, HLD and autoimmune hepatitis p/w sudden onset of retrosternal and epigastric pain a/w SOB. On exam has tenderness over sternum and epigastric area. EKG I personally reviewed NSR at 80/min with no evidence of ongoing sichemia and unchanged compared to prior EKG. CXR I personally reviewed showed choric changes but no acute pathology. First troponin negative. Agree with tele and KORINA protocol. Also c/o bringing up blood every morning x 6 months! H&H stable. No fever, night sweats, wt loss or other constitutional symptoms except for dry cough. IV protonix and GI consult. Obtain records from [place]. Possible need for pulm consult/CT chest/FOB.
[2018-10-16 05:48] LABS: BASO # 0.1 K/uL (0.0-0.2); BASO % 0.8 % (0.0-2.0); EOS # 0.2 K/uL (0.0-0.7); EOS % 2.9 % (0.0-4.0); HEMOGLOBIN 11.1 g/dL (12.0-16.0); LYMPH # 3.6 K/uL (1.0-4.3); LYMPH % 47.5 % (20.0-40.0); MEAN CORPUSCULAR HEMOGLOBIN 28.8 pg (27.0-31.0); MEAN CORPUSCULAR HGB CONC 33.2 g/dL (33.0-37.0); MEAN PLATELET VOLUME 9.7 fl (7.2-11.7); MONO # 0.7 K/uL (0.0-0.8); MONO % 8.6 % (0.0-10.0); NEUT % 40.2 % (50.0-75.0); RBC 3.86 Mil/uL (3.80-5.20); RED CELL DISTRIBUTION WIDTH 15.9 % (11.5-14.5); WHITE BLOOD COUNT 7.5 K/uL (4.8-10.8)
[2018-10-16 06:04] LABS: B-TYPE NATRIURETIC PEPTIDE 231 pg/ml (0-900)
[2018-10-16 06:24] LABS: ALB/GLOB RATIO 0.7 (1.0-2.1); ALBUMIN 2.9 g/dL (3.5-5.0); ALT/SGPT 14 U/L (9-52); AST/SGOT 42 U/L (14-36); BLOOD UREA NITROGEN 19 mg/dl (7-17); CALCIUM 8.5 mg/dL (8.4-10.2); GFR NON-AFRICAN AMERICAN > 60
--- NOTE | 2018-10-16 08:27 | RAD ---
Date of service: 10/15/2018 HISTORY: cough COMPARISON: Chest radiographs 10/28/2017. TECHNIQUE: Chest PA and lateral FINDINGS: LUNGS: Bilateral basilar linear atelectasis reiterated. No airspace disease bilaterally otherwise. PLEURA: No significant pleural effusion identified. No pneumothorax apparent. CARDIOVASCULAR: No aortic atherosclerotic calcification present. Normal cardiac size. No pulmonary vascular congestion. OSSEOUS STRUCTURES: No significant abnormalities. VISUALIZED UPPER ABDOMEN: Normal. OTHER FINDINGS: None. IMPRESSION: Bilateral linear atelectasis. No infiltrates, pleural effusion, pneumothorax or pulmonary vascular congestion.
--- NOTE | 2018-10-16 09:57 | US ---
Date of service: 10/16/2018 HISTORY: epigastric pain, elevated T bili COMPARISON: None. TECHNIQUE: Sonographic evaluation of the right upper quadrant of the abdomen. FINDINGS: LIVER: Measures 14.1 cm in length. Mildly heterogeneous echogenicity of the liver parenchyma. Normal directional blood flow is identified at the main portal vein. No mass. No intrahepatic bile duct dilatation. GALLBLADDER: Gallbladder appears distended with upper limits mural thickness of 2.5 mm but no pericholecystic fluid or hypervascular changes related. Limited cholelithiasis is seen layering in the dependent gallbladder lumen. Clinically correlate for potential cholecystitis though this is not favored. COMMON BILE DUCT: Measures 5.1 mm. No stones. No dilatation. PANCREAS: Overlying stomach gas obscures the mid body through tail with remainder nonfocal. RIGHT KIDNEY: Measures 11.3 cm in length. At the upper pole, there is a 1.3 simple cyst with a 1.1 cm simple cyst at the lower pole. Solitary midpole caliceal calculus is appreciated nonobstructive measuring 5 mm greatest dimension. No additional urolithiasis identified. No obstructive uropathy or definitive solid mass identified. AORTA: No aneurysmal dilatation. IVC: Unremarkable. OTHER FINDINGS: None . IMPRESSION: 1. A distended gallbladder is appreciate with upper limits normal thickness gallbladder wall and limited cholelithiasis. No pericholecystic fluid collection is identified. Clinically correlate for potential cholecystitis nevertheless. No biliary tree dilatation identified. 2. Nonobstructing intrarenal calculus 5 mm midpole right kidney. Two simple cysts are identified in the right kidney as well with the right kidney otherwise unremarkable. 3. Partial imaging of the pancreas.
[2018-10-16 13:35] LABS: HEMOGLOBIN 10.5 g/dL (12.0-16.0); MEAN CELL VOLUME 87.3 fl (81.0-99.0); MEAN CORPUSCULAR HEMOGLOBIN 28.8 pg (27.0-31.0); RBC 3.65 Mil/uL (3.80-5.20); RED CELL DISTRIBUTION WIDTH 15.8 % (11.5-14.5); WHITE BLOOD COUNT 5.3 K/uL (4.8-10.8)
--- NOTE | 2018-10-16 14:43 | CP.PCM.CON ---
History of Present Illness - History of Present Illness History of Present Illness: 67 yo female with h/o autoimmune hepatitis states she has been spitting up blood over the past week. Had black stool 4 days ago but since stools have been brown. On no immunosuppressives at the moment. Seen every 6 months at [facility]. Review of Systems - Constitutional Constitutional: absent: Chills - EENT Eyes: absent: Blurred Vision Ears: absent: Decreased Hearing Nose/Mouth/Throat: absent: Epistaxis - Cardiovascular Cardiovascular: absent: Chest Pain - Respiratory Respiratory: absent: Dyspnea - Gastrointestinal Gastrointestinal: absent: Abdominal Pain - Genitourinary Genitourinary: absent: Difficulty Urinating - Musculoskeletal Musculoskeletal: absent: Arthralgias Past Patient History - Tetanus Immunizations Tetanus Immunization: Unknown - Past Medical History & Family History Past Medical History?: Yes - Past Social History Alcohol: None Drugs: Denies - CARDIAC Hx Hypercholesterolemia: Yes Hx Hypertension: Yes - PULMONARY Hx Asthma: Yes Hx Bronchitis: Yes Hx Pneumonia: Yes (treated as outpt in May 2016) - NEUROLOGICAL Hx Migraine: Yes - HEENT Hx HEENT Problems: No - RENAL Hx Chronic Kidney Disease: No Hx Kidney Stones: Yes - ENDOCRINE/METABOLIC Hx Endocrine Disorders: No - HEMATOLOGICAL/ONCOLOGICAL Hx Human Immunodeficiency Virus (HIV): No - INTEGUMENTARY Hx Dermatological Problems: No - MUSCULOSKELETAL/RHEUMATOLOGICAL Hx Arthritis: Yes Hx Fractures: Yes - GASTROINTESTINAL Hx Diverticulitis: Yes Hx Gastritis: Yes - GENITOURINARY/GYNECOLOGICAL Hx Genitourinary Disorders: Yes Other/Comment: kidney stone - PSYCHIATRIC Hx Anxiety: Yes Hx Depression: Yes - SURGICAL HISTORY Hx Surgeries: Yes Hx Orthopedic Surgery: Yes (bilateral shoulder, right kne arthroscopy) Other/Comment: JASON. SHOULDER SURGERY - ANESTHESIA Hx Anesthesia: Yes Hx Anesthesia Reactions: No Hx Malignant Hyperthermia: No Meds Allergies/Adverse Reactions: Allergies Allergy/AdvReac Type Severity Reaction Status Date / Time codeine Allergy RASH Verified 10/15/18 20:55 peanut Allergy RASH Verified 10/15/18 20:55 - Medications Medications: Current Medications Acetaminophen (Tylenol 325mg Tab) 650 mg PO Q6H PRN PRN Reason: Pain, moderate (4-7) Last Admin: 10/16/18 09:06 Dose: 650 mg Carvedilol (Coreg) 6.25 mg PO BID AMBER Last Admin: 10/16/18 09:07 Dose: 6.25 mg Losartan Potassium (Cozaar) 100 mg PO DAILY [facility] Last Admin: 10/16/18 09:09 Dose: Not Given Ondansetron HCl (Zofran Inj) 4 mg IVP Q6 PRN PRN Reason: Nausea/Vomiting Pantoprazole Sodium (Protonix Inj) 40 mg IVP BID [facility] Tramadol HCl (Ultram) 50 mg PO Q6H PRN PRN Reason: Pain, severe (8-10) Physical Exam - Head Exam Head Exam: ATRAUMATIC - Eye Exam Eye Exam: Normal appearance - ENT Exam ENT Exam: Mucous Membranes Moist - Respiratory Exam Respiratory Exam: Clear to Auscultation Bilateral - Cardiovascular Exam Cardiovascular Exam: REGULAR RHYTHM, +S1, +S2 - GI/Abdominal Exam GI & Abdominal Exam: Normal Bowel Sounds, Soft. absent: Tenderness Results - Vital Signs Recent Vital Signs: Last Vital Signs Temp 98.1 F 10/16/18 13:50 Pulse 66 10/16/18 13:50 Resp 16 10/16/18 13:50 BP 102/54 L 10/16/18 13:50 Pulse Ox 95 10/16/18 13:50 - Labs Result Diagrams: 10/16/18 13:20 10/16/18 05:30 Labs: Laboratory Results - last 24 hr 10/15/18 10/15/18 10/15/18 21:15 21:15 21:15 WBC 6.5 RBC 4.20 Hgb 12.0 Hct 36.8 MCV 87.7 D MCH 28.6 MCHC 32.6 L RDW 16.6 H Plt Count 125 L MPV 10.7 Neut % (Auto) 47.9 L Lymph % (Auto) 38.3 [place] % (Auto) 10.0 Eos % (Auto) 3.1 Baso % (Auto) 0.7 Neut # (Auto) 3.1 Lymph # (Auto) 2.5 [place] # (Auto) 0.7 Eos # (Auto) 0.2 Baso # (Auto) 0.0 PT 17.7 H INR 1.6 Sodium 141 Potassium 3.9 Chloride 105 Carbon Dioxide 27 Anion Gap 13 BUN 19 H Creatinine 0.6 L Est GFR ( Amer) > 60 Est GFR (Non-Af Amer) > 60 Random Glucose 95 Calcium 8.8 Phosphorus Magnesium Total Bilirubin 1.4 H AST 50 H D ALT 16 Alkaline Phosphatase 97 Troponin I NT-Pro-B Natriuret Pep Total Protein 8.0 Albumin 3.5 D Globulin 4.5 H Albumin/Globulin Ratio 0.8 L Lipase Influenza Typ A,B (EIA) 10/15/18 10/16/18 10/16/18 21:15 01:16 05:30 WBC RBC Hgb Hct MCV MCH MCHC RDW Plt Count MPV Neut % (Auto) Lymph % (Auto) [place] % (Auto) Eos % (Auto) Baso % (Auto) Neut # (Auto) Lymph # (Auto) [place] # (Auto) Eos # (Auto) Baso # (Auto) PT INR Sodium 141 Potassium 3.7 Chloride 106 Carbon Dioxide 28 Anion Gap 11 BUN 19 H Creatinine 0.7 Est GFR ( Amer) > 60 Est GFR (Non-Af Amer) > 60 Random Glucose 96 Calcium 8.5 Phosphorus 3.8 Magnesium 1.7 Total Bilirubin 2.0 H AST 42 H ALT 14 Alkaline Phosphatase 76 Troponin I < 0.0120 NT-Pro-B Natriuret Pep 231 Total Protein 7.1 Albumin 2.9 L Globulin 4.2 H Albumin/Globulin Ratio 0.7 L Lipase 88 Influenza Typ A,B (EIA) Negative for flu a/b 10/16/18 10/16/18 10/16/18 05:30 07:25 13:20 WBC 7.5 RBC 3.86 Hgb 11.1 L Hct 33.5 L MCV 87.0 MCH 28.8 MCHC 33.2 RDW 15.9 H Plt Count 109 L MPV 9.7 Neut % (Auto) 40.2 L Lymph % (Auto) 47.5 H [place] % (Auto) 8.6 Eos % (Auto) 2.9 Baso % (Auto) 0.8 Neut # (Auto) 3.0 Lymph # (Auto) 3.6 [place] # (Auto) 0.7 Eos # (Auto) 0.2 Baso # (Auto) 0.1 PT INR Sodium Potassium Chloride Carbon Dioxide Anion Gap BUN Creatinine Est GFR ( Amer) Est GFR (Non-Af Amer) Random Glucose Calcium Phosphorus Magnesium Total Bilirubin AST ALT Alkaline Phosphatase Troponin I < 0.0120 < 0.0120 NT-Pro-B Natriuret Pep Total Protein Albumin Globulin Albumin/Globulin Ratio Lipase Influenza Typ A,B (EIA) 10/16/18 13:20 WBC 5.3 RBC 3.65 L Hgb 10.5 L Hct 31.9 L MCV 87.3 MCH 28.8 MCHC 33.0 RDW 15.8 H Plt Count 99 L MPV Neut % (Auto) Lymph % (Auto) [place] % (Auto) Eos % (Auto) Baso % (Auto) Neut # (Auto) Lymph # (Auto) [place] # (Auto) Eos # (Auto) Baso # (Auto) PT INR Sodium Potassium Chloride Carbon Dioxide Anion Gap BUN Creatinine Est GFR ( Amer) Est GFR (Non-Af Amer) Random Glucose Calcium Phosphorus Magnesium Total Bilirubin AST ALT Alkaline Phosphatase Troponin I NT-Pro-B Natriuret Pep Total Protein Albumin Globulin Albumin/Globulin Ratio Lipase Influenza Typ A,B (EIA) Assessment & Plan (1) GI (gastrointestinal bleed) Assessment and Plan: No evidence of active bleeding and vital signs are stable. Hgb though has been drifting down slightly. BID pantoprazole started and will follow clinically. Status: Acute
--- NOTE | 2018-10-16 18:49 | CARD ---
APPROVED REPORT Date of service: 10/15/2018 EKG Measurement Heart [id number] <Conclusion> Normal sinus rhythm Low voltage QRS Borderline ECG
[2018-10-17 00:56] VITALS: RESP 18
[2018-10-17 06:32] LABS: HEMOGLOBIN 10.9 g/dL (12.0-16.0); MEAN CELL VOLUME 87.7 fl (81.0-99.0); MEAN CORPUSCULAR HEMOGLOBIN 28.8 pg (27.0-31.0); MEAN CORPUSCULAR HGB CONC 32.9 g/dL (33.0-37.0); RBC 3.77 Mil/uL (3.80-5.20)
[2018-10-17 06:41] LABS: BLOOD UREA NITROGEN 21 mg/dl (7-17); CALCIUM 8.5 mg/dL (8.4-10.2); GFR NON-AFRICAN AMERICAN > 60
--- NOTE | 2018-10-17 11:39 | CP.PCM.PN ---
Subjective - Date & Time of Evaluation Date of Evaluation: 10/17/18 Time of Evaluation: 11:38 - Subjective Subjective: pt seen and evaluated at bedside this morning. No acute events overnight. Pt seen sitting up in bed, comfortably, NAD. Reports mild improvement in epigastric pain. Tolerating PO intake. Hemodynamically stable. Denies any N/V/D/C, melena /hematochezia. OOB/ambulating w/o issue. Afebrile, no other complaints/concerns. Objective - Vital Signs/Intake and Output Vital Signs (last 24 hours): Temp Pulse Resp BP Pulse Ox 98.1 F 88 18 102/63 96 10/17/18 08:10 10/17/18 09:00 10/17/18 08:10 10/17/18 09:21 10/17/18 08:10 - Medications Medications: Current Medications Acetaminophen (Tylenol 325mg Tab) 650 mg PO Q6H PRN PRN Reason: Pain, moderate (4-7) Last Admin: 10/16/18 22:19 Dose: 650 mg Carvedilol (Coreg) 6.25 mg PO BID [facility] Last Admin: 10/17/18 09:21 Dose: Not Given Losartan Potassium (Cozaar) 100 mg PO DAILY [facility] Last Admin: 10/17/18 09:21 Dose: Not Given Ondansetron HCl (Zofran Inj) 4 mg IVP Q6 PRN PRN Reason: Nausea/Vomiting Pantoprazole Sodium (Protonix Inj) 40 mg IVP BID [facility] Last Admin: 10/17/18 10:49 Dose: 40 mg Tramadol HCl (Ultram) 50 mg PO Q6H PRN PRN Reason: Pain, severe (8-10) Last Admin: 10/17/18 09:24 Dose: 50 mg - Labs Labs: 10/17/18 05:30 10/17/18 05:30 PT 17.7 Seconds (9.8-13.1) H 10/15/18 21:15 INR 1.6 10/15/18 21:15 - Constitutional Appears: Non-toxic, No Acute Distress - Head Exam Head Exam: ATRAUMATIC - Eye Exam Eye Exam: EOMI, PERRL. absent: Scleral icterus - ENT Exam ENT Exam: Mucous Membranes Moist - Respiratory Exam Respiratory Exam: Clear to Ausculation Bilateral, NORMAL BREATHING PATTERN. absent: Rales, Rhonchi, Wheezes - Cardiovascular Exam Cardiovascular Exam: REGULAR RHYTHM, RRR, +S1, +S2. absent: Tachycardia, JVD - GI/Abdominal Exam GI & Abdominal Exam: Soft, Tenderness (epigastric), Normal Bowel Sounds. absent: Firm, Guarding, Rigid, Hernia, Rebound - Extremities Exam Extremities Exam: Full ROM, Normal Capillary Refill, Normal Inspection. absent: Calf Tenderness, Pedal Edema - Neurological Exam Neurological Exam: Alert, Awake, CN II-XII Intact, Normal Gait, Oriented x3 - Skin Skin Exam: Dry, Intact, Normal Color, Warm Assessment and Plan - Assessment and Plan (Free Text) Assessment: 67 year old Female with PMHx HTN, HLD, gastritis, autoimmune hepatitis, renal stone accompanied by her son and presents to [facility] ED for evaluation of chest pain. Admitted for chest pain evaluation and worsening epigastric pain and thrombocytopenia. Plan: Gastritis with Epigastic tenderness -H&H stable -Protonix 40 mg IVP QD -GI consult- Dr. Calderon (last EGD at [facility] done by Dr. Calderon in 11/2016) -Obtain record of last EGD done in [place] in 05/2018 -f/u GI for further recommendations -Hpylori pending -lipase normal Thrombocytopenia -trending down -f/u manual count -no splenomegaly on abd u/s Chest pain -resolved -Admitted to telemetry -Stable vitals -troponin negative x3 Hx autoimmune hepatitis -has outpatient GI apt on 10/22/18 Hypertension -Carvedilol 6.25mg Q12H -Losartan 100mg QD DVT prophylaxis -thrombocytopenia -SCDs
[2018-10-17 12:44] VITALS: BP 121/78; TEMP 19.4
--- NOTE | 2018-10-17 18:17 | CP.PCM.DIS ---
Provider - Provider Date of Admission: 10/16/18 00:35 Attending physician: Perez Grimes MD Primary care physician: Dr Leatha Shaw Consults: 10/16/18 01:50 Gastroenterology Consult Routine Comment: Consulting Provider: Donovan Calderon Consulting Physician: Donovan Calderon Reason for Consult: epigastric pain, ?intermitent brings up blood x 6 months Time Spent in preparation of Discharge (in minutes): 30 Hospital Course - Lab Results Lab Results: Most Recent Lab Values WBC 6.0 K/uL (4.8-10.8) 10/17/18 05:30 RBC 3.77 Mil/uL (3.80-5.20) L 10/17/18 05:30 Hgb 10.9 g/dL (12.0-16.0) L 10/17/18 05:30 Hct 33.0 % (34.0-47.0) L 10/17/18 05:30 MCV 87.7 fl (81.0-99.0) 10/17/18 05:30 MCH 28.8 pg (27.0-31.0) 10/17/18 05:30 MCHC 32.9 g/dL (33.0-37.0) L 10/17/18 05:30 RDW 16.0 % (11.5-14.5) H 10/17/18 05:30 Plt Count 99 K/uL (130-400) L 10/17/18 05:30 Manual Plt Count 99 K/uL (130-400) L 10/17/18 09:15 MPV 9.7 fl (7.2-11.7) 10/16/18 05:30 Neut % (Auto) 40.2 % (50.0-75.0) L 10/16/18 05:30 Lymph % (Auto) 47.5 % (20.0-40.0) H 10/16/18 05:30 [place] % (Auto) 8.6 % (0.0-10.0) 10/16/18 05:30 Eos % (Auto) 2.9 % (0.0-4.0) 10/16/18 05:30 Baso % (Auto) 0.8 % (0.0-2.0) 10/16/18 05:30 Neut # (Auto) 3.0 K/uL (1.8-7.0) 10/16/18 05:30 Lymph # (Auto) 3.6 K/uL (1.0-4.3) 10/16/18 05:30 [place] # (Auto) 0.7 K/uL (0.0-0.8) 10/16/18 05:30 Eos # (Auto) 0.2 K/uL (0.0-0.7) 10/16/18 05:30 Baso # (Auto) 0.1 K/uL (0.0-0.2) 10/16/18 05:30 PT 17.7 Seconds (9.8-13.1) H 10/15/18 21:15 INR 1.6 10/15/18 21:15 Sodium 141 mmol/l (132-148) 10/17/18 05:30 Potassium 3.9 MMOL/L (3.6-5.0) 10/17/18 05:30 Chloride 108 mmol/L (98-107) H 10/17/18 05:30 Carbon Dioxide 25 mmol/L (22-30) 10/17/18 05:30 Anion Gap 12 (10-20) 10/17/18 05:30 BUN 21 mg/dl (7-17) H 10/17/18 05:30 Creatinine 0.6 mg/dl (0.7-1.2) L 10/17/18 05:30 Est GFR ( Amer) > 60 10/17/18 05:30 Est GFR (Non-Af Amer) > 60 10/17/18 05:30 Random Glucose 81 mg/dL (65-105) 10/17/18 05:30 Calcium 8.5 mg/dL (8.4-10.2) 10/17/18 05:30 Phosphorus 3.8 mg/dl (2.5-4.5) 10/16/18 05:30 Magnesium 1.7 MG/DL (1.6-2.3) 10/16/18 05:30 Total Bilirubin 2.0 mg/dl (0.2-1.3) H 10/16/18 05:30 AST 42 U/L (14-36) H 10/16/18 05:30 ALT 14 U/L (9-52) 10/16/18 05:30 Alkaline Phosphatase 76 U/L (38-126) 10/16/18 05:30 Troponin I < 0.0120 ng/mL (0.00-0.120) 10/16/18 13:20 NT-Pro-B Natriuret Pep 231 pg/ml (0-900) 10/16/18 05:30 Total Protein 7.1 G/DL (6.3-8.2) 10/16/18 05:30 Albumin 2.9 g/dL (3.5-5.0) L 10/16/18 05:30 Globulin 4.2 gm/dL (2.2-3.9) H 10/16/18 05:30 Albumin/Globulin Ratio 0.7 (1.0-2.1) L 10/16/18 05:30 Lipase 88 U/L (23-300) 10/16/18 01:16 Procalcitonin 0.24 NG/ML (0.19-0.49) 10/16/18 05:30 Influenza Typ A,B (EIA) Negative for flu a/b (NEGATIVE) 10/15/18 21:15 - Hospital Course Hospital Course: 67 year old Female not a good historian with PMHx HTN, HLD, Chronic active gastritis, autoimmune hepatitis and liver cirrhosis ?, Cholelithiasis brought to ER accompanied by her son and or evaluation of chest pain. Patient reported dull substernal chest pain (02/17) that radiated to back that started yesterday afternoon around 4 pm associated with shortness of breath and subjective fever.Patient has history of autoimmune hepatitis and follows up with a GI doctor . She also has history of Chronic active gastritis diagnosed with EEG in the past. She was admitted at [facility] 05/2018 and had another EGD that was ok as per her ( did not follow up with Home Service Consultant ) She was placed under observation in telemetry for chest pain to rule out ACS . Troponins were cycled and were all negative, telemetry showed no arrythmias and EKG showed no ST - T wave changes . From review of past medical records noted she had a nuclear stress test performed in April 2018 that showed normal wall motion and no ischemia--- ACS ruled out Initially patient stated she had been having hematemesis on and off for the last 6 months so GI was consulted and case was discussed with Dr. Calderon who had performed her last EGD that recommended monitoring h&h and increasing Protonix to 40 mg Po BID. Her H& H remained stable with no active bleeding . This morning patient changed her story by complaining of nasal bleeds on and off for the last 6 months and no hematemesis . At present no active bleeding noted and Hgb is stable 10.9 Her bilirubin is 2 and stable ( prior admissions Kike has been up to 10 ) US abdomen showed no cholelithiasis no cholecysthitis Will discharge patient home Advise to follow up with her PMD and GI physician . Continue to monitor her platelet and Kike Increased Protonix to 40 mg po bid Follow up with ENT as outpatient for recurrent nose bleeds Dx 1. ACS ruled out 2.Epigastric pain most likely due to Chronic active gastritis--- increased Protonix to 40 mg po BID . Follow up with Dr. Calderon or her GI physician 3. Autoimmune Hepatitis 4.Cholelithiasis without cholecysthithis-- follow up with surgery as outpatient for possible elective cholecystectomy 5.Thrombocytopenia-- PLt 99 K . Follow up with PMD 6. Recurrent nasal bleed - follow up with ENT as outpatient 7. Hypertension 8.Dyslipidemia Discharge Exam - Head Exam Head Exam: ATRAUMATIC, NORMOCEPHALIC - Eye Exam Eye Exam: EOMI, Normal appearance, PERRL Pupil Exam: NORMAL ACCOMODATION - ENT Exam ENT Exam: Mucous Membranes Moist, Normal Exam - Neck Exam Neck exam: Full Rom, Normal Inspection - Respiratory Exam Respiratory Exam: Clear to PA & Lateral, NORMAL BREATHING PATTERN. absent: Rales, Rhonchi, Wheezes - Cardiovascular Exam Cardiovascular Exam: REGULAR RHYTHM, RRR, +S1, +S2. absent: JVD - GI/Abdominal Exam GI & Abdominal Exam: Normal Bowel Sounds, Soft. absent: Distended, Guarding, Rebound, Tenderness - Rectal Exam Rectal Exam: Deferred - Extremities Exam Extremities exam: normal capillary refill, normal inspection, pedal pulses present - Back Exam Back exam: NORMAL INSPECTION - Neurological Exam Neurological exam: Alert, CN II-XII Intact, Oriented x3, Reflexes Normal - Psychiatric Exam Psychiatric exam: Normal Affect, Normal Mood - Skin Skin Exam: Dry, Intact, Normal Color, Warm Discharge Plan - Discharge Medications Prescriptions: Pantoprazole Sodium [Protonix] 40 mg PO BID #60 ect traMADol [Ultram] 50 mg PO TID PRN #10 tab PRN Reason: Pain, Severe (8-10) - Follow Up Plan Condition: IMPROVED Disposition: HOME/ ROUTINE Patient education suggested?: Yes Instructions: Chest Pain (DC), Gastritis (DC) Additional Instructions: Discharge home with ER precautions Please follow up with primary care doctor in 3-5 days. Referrals: Donovan Calderon MD [Staff Provider] -
[2018-10-19 12:21] VITALS: PULSE 80; O2SAT 100
== END 2018-10-17 13:23 | disposition home or self-care (01) ==
LOC: H.ER 20:49 → H.ERHOLD 10-16 00:35 → H.TEL 10-16 17:10
PROVIDERS: ADMIT Internal Medicine; ATTEND Internal Medicine
DX: K29.50 Unspecified chronic gastritis without bleeding (principal); K74.60 Unspecified cirrhosis of liver; K75.4 Autoimmune hepatitis; K80.20 Calculus of gallbladder without cholecystitis without obstruction; Z87.442 Personal history of urinary calculi; F32.9 Major depressive disorder, single episode, unspecified; F41.9 Anxiety disorder, unspecified; G43.909 Migraine, unspecified, not intractable, without status migrainosus; K29.70 Gastritis, unspecified, without bleeding; M19.90 Unspecified osteoarthritis, unspecified site; Z79.899 Other long term (current) drug therapy; M54.9 Dorsalgia, unspecified; D69.6 Thrombocytopenia, unspecified; E78.00 Pure hypercholesterolemia, unspecified; E78.5 Hyperlipidemia, unspecified; I10 Essential (primary) hypertension; I25.10 Atherosclerotic heart disease of native coronary artery without angina pectoris; J45.909 Unspecified asthma, uncomplicated
CPT/HCPCS: 36415; 71046; 76705; 80048; 80053; 83690; 83735; 83880; 84100; 84145; 84484; 85025; 85027; 85610; 87804; 93005; 96374; 96376; 99285; C9113; G0378

== ENCOUNTER 2018-11-11 12:05 | Emergency (ER) | payer MEDICARE, MEDICAID ==
[2018-11-11 12:06] VITALS: BMI 35.2
[2018-11-11] MEDS ORDERED: Albuterol-Ipratrop 3 mg / 0.5 (3 ml) UD INH STA ×2 (13:14→14:36)
--- NOTE | 2018-11-11 13:27 | ED PDOC ---
History of Present Illness History of Present Illness: 68 year old female with a past medical history of diabetes, hypertension, CAD, and liver cirrhosis who is presenting to the ED for evaluation of cough ongoing for two weeks. Patient states that she was in [place] where she was diagnosed with bronchitis and but has not noted any improvements and is worried about possible pneumonia. She denies any phlegm but does report fevers with a Tm ax of 102. Her last fever was 3 days ago and she denies any chest pain, shortness of breath, or any other medical complaints at this time. PMD: Cezar Shaw HPI: Influenza Time Seen by Provider: 11/11/18 12:57 Chief Complaint: Cough, Cold, Congestion Chief Complaint (Provider): Cough, Cold, Congestion History Per: Patient Exam Limitations: no limitations Onset/Duration Of Symptoms: Days Symptoms include: fever, cough. denies: chest pain, difficulty breathing Past Medical History Reviewed: Historical Data, Nursing Documentation, Vital Signs Vital Signs: Last Vital Signs Temp 98.7 F 11/11/18 12:31 Pulse 81 11/11/18 12:31 Resp 20 11/11/18 12:31 BP Pulse Ox 97 11/11/18 12:31 - Medical History PMH: Anxiety, Arthritis, Asthma, Bronchitis, CAD, Depression, Diverticulitis, Fractures, Gastritis, Hepatitis (Autoimmune hepatitis), HTN, Hy percholesterolemia, Kidney Stones, Migraine, Pneumonia (treated as outpt in May 2016) Denies: HIV, Chronic Kidney Disease - Surgical History Surgical History: - Family History Family History: States: Unknown Family Hx - Social History Current smoker - smoking cessation education provided: No Alcohol: None Drugs: Denies - Immunization History Hx Tetanus Toxoid Vaccination: No Hx Influenza Vaccination: No Hx Pneumococcal Vaccination: No - Home Medications Home Medications: Ambulatory Orders Medication Instructions Recorded Carvedilol [Coreg] 6.25 mg PO BID 10/15/18 Albuterol 0.083% [Albuterol 0.083% 3 ml IH Q6H PRN #30 neb 11/11/18 Inhal Elizabeth (2.5 mg/3 ml) UD] Albuterol HFA [Ventolin HFA 90 2 puff IH [id number] PRN #1 bottle 11/11/18 mcg/actuation (8 g)] Prednisone 50 mg PO DAILY #4 tab 11/11/18 ALPRAZolam [Xanax] 1 mg PO Q12 PRN 11/13/18 Losartan [Cozaar] 100 mg PO DAILY #30 tab 11/13/18 Pantoprazole Sodium [Protonix] 40 mg PO DAILY 11/13/18 - Allergies Allergies/Adverse Reactions: Allergies Allergy/AdvReac Type Severity Reaction Status Date / Time codeine Allergy RASH Verified 10/15/18 20:55 peanut Allergy RASH Verified 10/15/18 20:55 Review of Systems ROS Statement: Except As Marked, All Systems Reviewed And Found Negative Constitutional: Positive for: Fever Cardiovascular: Negative for: Chest Pain Respiratory: Positive for: Cough. Negative for: Shortness of Breath Physical Exam - Reviewed Nursing Documentation Reviewed: Yes Vital Signs Reviewed: Yes - Physical Exam Appears: Positive for: Non-toxic, No Acute Distress Head Exam: Positive for: ATRAUMATIC, NORMAL INSPECTION, NORMOCEPHALIC Skin: Positive for: Normal Color, Warm, DRY Eye Exam: Positive for: EOMI, Normal appearance, PERRL ENT: Positive for: Normal ENT Inspection Neck: Positive for: Normal, Painless ROM Cardiovascular/Chest: Positive for: Regular Rate, Rhythm. Negative for: Murmur Respiratory: Positive for: Normal Breath Sounds. Negative for: Respiratory Distress Gastrointestinal/Abdominal: Positive for: Normal Exam, Soft. Negative for: Tenderness Extremity: Positive for: Normal ROM. Negative for: Deformity, Swelling Neurological/Psych: Positive for: Awake, Alert, Normal Tone, Oriented. Negative for: Motor/Sensory Deficits Medical Decision Making Medical Decision Making: Time: 13:14 Plan: --EKG --CMP --ED Urine Dipastick --CBC --Coags --CXR --Duoneb 3 ml INH --Blood Culture --Peak Flow Pre/Post TX --Urinalysis Accession No. : [id number] Patient Name / ID : LUIS MANUEL JOHNSON / [id number] Exam Date : 11/11/2018 13:02:21 ( Approved ) Study Comment : Sex / Age : F / 68Y Creator : Kadeem Ivan MD Dictator : Kadeem Ivan MD Geosciences Associate Professor : Spa Manager : Kadeem Ivan MD Approver2 : Report Date : 11/11/2018 13:52:03 My Comment : Date of service: 11/11/2018 HISTORY: Cough COMPARISON: 10/15/2018 TECHNIQUE: Chest PA and lateral views FINDINGS: LUNGS: No active pulmonary disease. Linear scarring left lower lobe unchanged. PLEURA: No significant pleural effusion identified. No pneumothorax apparent. CARDIOVASCULAR: No aortic atherosclerotic calcification present. Normal cardiac size. No pulmonary vascular congestion. OSSEOUS STRUCTURES: No significant abnormalities. VISUALIZED UPPER ABDOMEN: Normal. OTHER FINDINGS: None. IMPRESSION: No active disease. No significant interval change compared to the prior examination(s). -- Scribe Attestation: Documented by Hayley Foley, acting as a scribe for Tatum Horan MD. Provider Scribe Attestation: All medical record entries made by the Scribe were at my direction and personally dictated by me. I have reviewed the chart and agree that the record accurately reflects my personal performance of the history, physical exam, medical decision making, and the department course for this patient. I have also personally directed, reviewed, and agree with the discharge instructions and disposition. - Laboratory Results Result Diagrams: 11/11/18 13:26 11/11/18 13:26 - ECG O2 Sat by Pulse Oximetry: 97 (RA) Pulse Ox Interpretation: Normal Disposition - Clinical Impression Clinical Impression: UTI (urinary tract infection), Cough - Disposition Referrals: [facility] [Outside] Disposition: Routine/Home Disposition Time: 17:23 Condition: IMPROVED Prescriptions: Albuterol HFA [Ventolin HFA 90 mcg/actuation (8 g)] 2 puff IH [id number] PRN #1 bottle PRN Reason: Shortness Of Breath Albuterol 0.083% [Albuterol 0.083% Inhal Elizabeth (2.5 mg/3 ml) UD] 3 ml IH Q6H PRN #30 neb PRN Reason: Shortness Of Breath Prednisone 50 mg PO DAILY #4 tab Instructions: Urinary Tract Infections in Adults, Cough in Adults Forms: [facility] (Bolivian) Print Language: [place]
[2018-11-11] MEDS ORDERED: Albuterol-Ipratrop 3 mg / 0.5 (3 ml) UD ONE ×2 (13:29→15:07)
--- NOTE | 2018-11-11 13:55 | RAD ---
Date of service: 11/11/2018 HISTORY: Cough COMPARISON: 10/15/2018 TECHNIQUE: Chest PA and lateral views FINDINGS: LUNGS: No active pulmonary disease. Linear scarring left lower lobe unchanged. PLEURA: No significant pleural effusion identified. No pneumothorax apparent. CARDIOVASCULAR: No aortic atherosclerotic calcification present. Normal cardiac size. No pulmonary vascular congestion. OSSEOUS STRUCTURES: No significant abnormalities. VISUALIZED UPPER ABDOMEN: Normal. OTHER FINDINGS: None. IMPRESSION: No active disease. No significant interval change compared to the prior examination(s).
[2018-11-11 14:15] LABS: BASO % 0.7 % (0.0-2.0); EOS # 0.3 K/uL (0.0-0.7); EOS % 3.7 % (0.0-4.0); HEMOGLOBIN 12.5 g/dL (12.0-16.0); LYMPH # 3.2 K/uL (1.0-4.3); LYMPH % 45.3 % (20.0-40.0); MEAN CELL VOLUME 86.7 fl (81.0-99.0); MEAN CORPUSCULAR HEMOGLOBIN 28.5 pg (27.0-31.0); MEAN CORPUSCULAR HGB CONC 32.9 g/dL (33.0-37.0); MEAN PLATELET VOLUME 10.1 fl (7.2-11.7); MONO # 0.5 K/uL (0.0-0.8); MONO % 7.7 % (0.0-10.0); NEUT % 42.6 % (50.0-75.0); NRBC % 0.2 % (0.0-0.0); RBC 4.37 Mil/uL (3.80-5.20); RED CELL DISTRIBUTION WIDTH 15.5 % (11.5-14.5); WHITE BLOOD COUNT 7.1 K/uL (4.8-10.8)
[2018-11-11 14:43] LABS: SQUAMOUS EPITHIAL 2 /hpf (0-5); URINE BACTERIA RARE (<OCC); URINE BILIRUBIN NEGATIVE (NEGATIVE); URINE BLOOD SMALL (NEGATIVE); URINE CLARITY SLIGHTY-CLOUDY (Clear); URINE COLOR YELLOW (YELLOW); URINE GLUCOSE (UA) NEG (NEGATIVE); URINE LEUKOCYTE ESTERASE LARGE Leu/uL (Negative); URINE PROTEIN NEGATIVE (NEGATIVE); URINE UROBILINOGEN 0.2-1.0 mg/dL (0.2-1.0)
[2018-11-11 14:57] LABS: ALB/GLOB RATIO 0.7 (1.0-2.1); ALBUMIN 3.4 g/dL (3.5-5.0); ALT/SGPT 21 U/L (9-52); AST/SGOT 60 U/L (14-36); BLOOD UREA NITROGEN 15 mg/dl (7-17); GFR NON-AFRICAN AMERICAN > 60
[2018-11-11 15:47] LABS: INR 1.5; PROTHROMBIN TIME 16.7 Seconds (9.8-13.1)
[2018-11-11 15:50] LABS: PARTIAL THROMBOPLASTIN TIME 36.8 Seconds (25.6-37.1)
[2018-11-11 16:39] VITALS: PULSE 76; RESP 18
[2018-11-11 18:54] VITALS: BP 119/75; TEMP 98.6; O2SAT 97
--- NOTE | 2018-11-11 22:45 | CARD ---
APPROVED REPORT Date of service: 11/11/2018 EKG Measurement Heart [id number] ID [id number] <Conclusion> Normal sinus rhythm Normal ECG
== END 2018-11-11 18:45 | disposition home or self-care (01) ==
LOC: H.ER 12:05
DX: R05 Cough (principal); N39.0 Urinary tract infection, site not specified; E11.9 Type 2 diabetes mellitus without complications; E78.00 Pure hypercholesterolemia, unspecified; F32.9 Major depressive disorder, single episode, unspecified; F41.9 Anxiety disorder, unspecified; I10 Essential (primary) hypertension; I25.10 Atherosclerotic heart disease of native coronary artery without angina pectoris; K74.60 Unspecified cirrhosis of liver; Z79.899 Other long term (current) drug therapy
CPT/HCPCS: 72HRC; 94640

== ENCOUNTER 2018-11-13 12:51 | Inpatient (IN) | payer MEDICARE, MEDICAID ==
[2018-11-13 12:52] VITALS: BMI 35.2
[2018-11-13] MEDS ORDERED: Albuterol 0.083% Inhal Sol (2.5 mg/3 mL) UD INH STA (13:45)
[2018-11-13 14:08] LABS: BASO # 0.1 K/uL (0.0-0.2); BASO % 0.9 % (0.0-2.0); EOS # 0.1 K/uL (0.0-0.7); EOS % 0.8 % (0.0-4.0); HEMOGLOBIN 11.4 g/dL (12.0-16.0); LYMPH # 4.1 K/uL (1.0-4.3); LYMPH % 38.2 % (20.0-40.0); MEAN CELL VOLUME 87.2 fl (81.0-99.0); MEAN CORPUSCULAR HEMOGLOBIN 28.3 pg (27.0-31.0); MEAN CORPUSCULAR HGB CONC 32.4 g/dL (33.0-37.0); MEAN PLATELET VOLUME 10.1 fl (7.2-11.7); MONO # 0.8 K/uL (0.0-0.8); MONO % 7.2 % (0.0-10.0); NEUT # 5.6 K/uL (1.8-7.0); NEUT % 52.9 % (50.0-75.0); NRBC % 0.1 % (0.0-0.0); RBC 4.05 Mil/uL (3.80-5.20); RED CELL DISTRIBUTION WIDTH 15.6 % (11.5-14.5); WHITE BLOOD COUNT 10.6 K/uL (4.8-10.8)
[2018-11-13] MEDS ORDERED: Albuterol 0.083% Inhal Sol (2.5 mg/3 mL) UD ONE (14:16)
[2018-11-13 14:23] LABS: ALB/GLOB RATIO 0.8 (1.0-2.1); ALBUMIN 3.3 g/dL (3.5-5.0); ALT/SGPT 17 U/L (9-52); AST/SGOT 50 U/L (14-36); BLOOD UREA NITROGEN 23 mg/dl (7-17); GFR NON-AFRICAN AMERICAN > 60
--- NOTE | 2018-11-13 14:28 | ED PDOC ---
HPI: General Adult Time Seen by Provider: 11/13/18 13:08 Chief Complaint (Nursing): Abnormal Labs History Per: Patient Additional Complaint(s): Pt. states she's had a cough for 2 weeks. States she initially had a fever the 1st week of symptoms but has since resolved. Cough persists. Pt. was seen here 2 days ago for same symptoms and dc'd. Pt. was called back today due to having positive blood cultures. Of note cough began while she was in [place]. Denies chest pain, SOB, hemoptysis, leg pain, abd pain, back pain. Past Medical History Reviewed: Historical Data, Nursing Documentation, Vital Signs Vital Signs: Last Vital Signs Temp 97.7 F 11/13/18 12:53 Pulse 81 11/13/18 12:53 Resp 19 11/13/18 12:53 BP 110/71 11/13/18 12:53 Pulse Ox 100 11/13/18 12:53 - Medical History PMH: Anxiety, Arthritis, Asthma, Bronchitis, CAD, Depression, Diverticulitis, Fractures, Gastritis, Hepatitis (Autoimmune hepatitis), HTN, Hypercholesterolemia, Kidney Stones, Migraine, Pneumonia (treated as outpt in May 2016) Denies: HIV, Chronic Kidney Disease - Surgical History Surgical History: - Family History Family History: States: No Known Family Hx - Immunization History Hx Tetanus Toxoid Vaccination: No Hx Influenza Vaccination: No Hx Pneumococcal Vaccination: No - Home Medications Home Medications: Ambulatory Orders Medication Instructions Recorded Carvedilol [Coreg] 6.25 mg PO BID 10/15/18 Albuterol 0.083% [Albuterol 0.083% 3 ml IH Q6H PRN #30 neb 11/11/18 Inhal Elizabeth (2.5 mg/3 ml) UD] Albuterol HFA [Ventolin HFA 90 2 puff IH [id number] PRN #1 bottle 11/11/18 mcg/actuation (8 g)] Prednisone 50 mg PO DAILY #4 tab 11/11/18 ALPRAZolam [Xanax] 1 mg PO Q12 PRN 11/13/18 Pantoprazole Sodium [Protonix] 40 mg PO DAILY 11/13/18 - Allergies Allergies/Adverse Reactions: Allergies Allergy/AdvReac Type Severity Reaction Status Date / Time codeine Allergy RASH Verified 10/15/18 20:55 peanut Allergy RASH Verified 10/15/18 20:55 Review of Systems ROS Statement: Except As Marked, All Systems Reviewed And Found Negative Respiratory: Positive for: Cough Physical Exam - Physical Exam Appears: Positive for: Well, Non-toxic, No Acute Distress (actively coughing) Skin: Positive for: Normal Color, Warm. Negative for: Rash Eye Exam: Positive for: Normal appearance Neck: Positive for: Normal, Painless ROM, Supple Cardiovascular/Chest: Positive for: Regular Rate, Rhythm. Negative for: Tach ycardia Respiratory: Positive for: Normal Breath Sounds. Negative for: Respiratory Distress Extremity: Negative for: Calf Tenderness (b/l) Neurological/Psych: Positive for: Awake, Alert, Oriented (x3) - Laboratory Results Result Diagrams: 11/13/18 13:40 11/13/18 13:40 Lab Results: Total Bilirubin 1.0 mg/dl (0.2-1.3) 11/13/18 13:40 AST 50 U/L (14-36) H 11/13/18 13:40 ALT 17 U/L (9-52) 11/13/18 13:40 Alkaline Phosphatase 100 U/L (38-126) 11/13/18 13:40 Total Protein 7.6 G/DL (6.3-8.2) 11/13/18 13:40 Albumin 3.3 g/dL (3.5-5.0) L 11/13/18 13:40 Globulin 4.3 gm/dL (2.2-3.9) H 11/13/18 13:40 Albumin/Globulin Ratio 0.8 (1.0-2.1) L 11/13/18 13:40 - ECG O2 Sat by Pulse Oximetry: 100 - Radiology X-Ray: Interpreted by Me (CXR) X-Ray Interpretation: No Acute Disease Medical Decision Making Medical Decision Making: Pt. and family informed of plan and agrees. Case d/w Dr. Vázquez, hospitalist, and arrangements made for admission. Zosyn IV, vancomycin IV ordered. Disposition - Clinical Impression Clinical Impression: UTI (urinary tract infection), Positive blood cultures - Patient ED Disposition Is Patient to be Admitted: Yes - Disposition Disposition Time: 14:10 Condition: STABLE
--- NOTE | 2018-11-13 14:42 | RAD ---
Date of service: 11/13/2018 HISTORY: Cough COMPARISON: Comparison with chest Xray dated 11/11/18 TECHNIQUE: 1 view obtained. FINDINGS: LUNGS: Poor inspiration with low lung volumes common crowded bronchovascular markings and mild bibasilar atelectasis. In addition, there is a more discrete elliptical shaped focus of presumed discoid type atelectasis in the lateral aspect left mid to lower lung field. The interstitial markings are also slightly increased and coarsened with a few scattered peribronchial cuffing changes possibly representing sequela of reactive/inflammatory airway disease or viral illness. PLEURA: No significant pleural effusion identified, no pneumothorax apparent. CARDIOVASCULAR: No aortic atherosclerotic calcification present. Normal cardiac size. No pulmonary vascular congestion. OSSEOUS STRUCTURES: No significant abnormalities. VISUALIZED UPPER ABDOMEN: Normal. OTHER FINDINGS: None. IMPRESSION: Poor inspiration with low lung volumes common crowded bronchovascular markings and mild bibasilar atelectasis. In addition, there is a more discrete elliptical shaped focus of presumed discoid type atelectasis in the lateral aspect left mid to lower lung field. The interstitial markings are also slightly increased and coarsened with a few scattered peribronchial cuffing changes possibly representing sequela of reactive/inflammatory airway disease or viral illness.
[2018-11-13 14:45] LABS: SQUAMOUS EPITHIAL 2 /hpf (0-5); URINE BACTERIA RARE (<OCC); URINE BILIRUBIN NEGATIVE (NEGATIVE); URINE BLOOD MODERATE (NEGATIVE); URINE CLARITY SLIGHTY-CLOUDY (Clear); URINE GLUCOSE (UA) NEG (NEGATIVE); URINE LEUKOCYTE ESTERASE LARGE Leu/uL (Negative); URINE PROTEIN 30 mg/dL (NEGATIVE); URINE UROBILINOGEN 0.2-1.0 mg/dL (0.2-1.0)
[2018-11-13 14:46] LABS: URINE CALCIUM OXALATE CRYSTALS OCC /hpf (<OCC); URINE COLOR YELLOW (YELLOW)
[2018-11-13] MEDS ORDERED: Piperacillin/Tazobact 3.375 GM in Sodium Chloride 0.9% 100 ML IVPB STA (15:40)
[2018-11-13] MEDS ORDERED: Piperacillin/Tazobact 3.375 gm Inj IVPB ONE (15:58)
--- NOTE | 2018-11-13 17:01 | CP.PCM.HP ---
<HiginioCandy - Last Filed: 11/13/18 18:41> History of Present Illness - History of Present Illness History of Present Illness: [id number] 67 year old Female with PMHx HTN, HLD, gastritis, liver cirrhosis & gallstones was sent to the ED bc blood cultures were positive for gram positive cocci from ED visit 2 days ago. As per patient, she has had a nonproductive cough x 2 wks with subjective fever and chills. She denies any chest pain, sob or sick contacts. She reports recently traveling to [place]. Pharmacy [address] Meds- coreg 6.25 mg po bid HCTZ- 12.5mg , Losartan 100 mg po daily, xanax 1mg BID PRN, protonix 40mg QD PMD: Dr. Shaw Compensation/Benefits Specialist: Dr. Antoine PMHx: HTN, Hyperlipidemia, autoimmune hepatitis, multiple kidney stones, ?CAD, gastritis, gallstone Surgical Hx: b/l knee surgery, shoulder surgery, ?Cardiac cath Family Hx: mother has hx stroke and CAD Social Hx: Lives at home, denies EtOH or tobacco Allergies: Codeine and peanut ED course -VS stable WBC-10.6 UA- WBC: 66, large leukocytes, neg nitrates CXR reported as mild bibasilar atelectasis; scattered peribronchial cuffing changes possibly representing sequela of reactive/inflammatory airway disease or viral illness. See report for complete details Meds received- Alb 2.5mg Inh, zosyn x 1 dose Present on Admission - Present on Admission Any Indicators Present on Admission: No Past Patient History - Infectious Disease Hx of Infectious Diseases: None - Tetanus Immunizations Tetanus Immunization: Unknown - Past Medical History & Family History Past Medical History?: Yes - Past Social History Smoking Status: Never Smoked - CARDIAC Hx Hypercholesterolemia: Yes Hx Hypertension: Yes - PULMONARY Hx Asthma: Yes Hx Bronchitis: Yes Hx Pneumonia: Yes (treated as outpt in May 2016) - NEUROLOGICAL Hx Migraine: Yes - HEENT Hx HEENT Problems: No - RENAL Hx Chronic Kidney Disease: No Hx Kidney Stones: Yes - ENDOCRINE/METABOLIC Hx Endocrine Disorders: No - HEMATOLOGICAL/ONCOLOGICAL Hx Human Immunodeficiency Virus (HIV): No - INTEGUMENTARY Hx Dermatological Problems: No - MUSCULOSKELETAL/RHEUMATOLOGICAL Hx Arthritis: Yes Hx Fractures: Yes - GASTROINTESTINAL Hx Diverticulitis: Yes Hx Gastritis: Yes - GENITOURINARY/GYNECOLOGICAL Hx Genitourinary Disorders: No - PSYCHIATRIC Hx Anxiety: Yes Hx Depression: Yes - SURGICAL HISTORY Hx Surgeries: Yes Hx Section: Yes Hx Orthopedic Surgery: Yes (bilateral shoulder, right kne arthroscopy) Other/Comment: JASON. SHOULDER SURGERY - ANESTHESIA Hx Anesthesia: Yes Hx Anesthesia Reactions: No Hx Malignant Hyperthermia: No Meds Allergies/Adverse Reactions: Allergies Allergy/AdvReac Type Severity Reaction Status Date / Time codeine Allergy RASH Verified 10/15/18 20:55 peanut Allergy RASH Verified 10/15/18 20:55 Physical Exam - Head Exam Head Exam: ATRAUMATIC, NORMAL INSPECTION - ENT Exam ENT Exam: Mucous Membranes Moist - Respiratory Exam Respiratory Exam: absent: Wheezes, Respiratory Distress Additional comments: crackles in b/l lower bases - Cardiovascular Exam Cardiovascular Exam: +S1, +S2 - GI/Abdominal Exam GI & Abdominal Exam: Normal Bowel Sounds, Soft. absent: Firm, Guarding, Rigid - Extremities Exam Extremities exam: Negative for: calf tenderness - Neurological Exam Neurological exam: Alert, Oriented x3 - Psychiatric Exam Psychiatric exam: Normal Mood - Skin Skin Exam: Dry, Intact Results - Vital Signs Recent Vital Signs: Last Vital Signs Temp 98.1 F 11/13/18 16:54 Pulse 89 11/13/18 16:54 Resp 18 11/13/18 16:54 BP 114/75 11/13/18 16:54 Pulse Ox 95 11/13/18 16:54 - Labs Result Diagrams: 11/13/18 13:40 11/13/18 13:40 Labs: Laboratory Results - last 24 hr 11/13/18 11/13/18 11/13/18 13:40 13:40 14:34 WBC 10.6 RBC 4.05 Hgb 11.4 L Hct 35.3 MCV 87.2 MCH 28.3 MCHC 32.4 L RDW 15.6 H Plt Count 140 MPV 10.1 Neut % (Auto) 52.9 Lymph % (Auto) 38.2 [place] % (Auto) 7.2 Eos % (Auto) 0.8 Baso % (Auto) 0.9 Neut # (Auto) 5.6 Lymph # (Auto) 4.1 [place] # (Auto) 0.8 Eos # (Auto) 0.1 Baso # (Auto) 0.1 Sodium 141 Potassium 3.6 Chloride 106 Carbon Dioxide 29 Anion Gap 10 BUN 23 H Creatinine 0.6 L Est GFR ( Amer) > 60 Est GFR (Non-Af Amer) > 60 Random Glucose 92 Calcium 9.0 Total Bilirubin 1.0 AST 50 H ALT 17 Alkaline Phosphatase 100 Total Protein 7.6 Albumin 3.3 L Globulin 4.3 H Albumin/Globulin Ratio 0.8 L Urine Color Yellow Urine Clarity Slighty-cloudy Urine pH 5.0 Ur Specific [place] 1.028 Urine Protein 30 Urine Glucose (UA) Neg Urine Ketones Negative Urine Blood Moderate Urine Nitrate Negative Urine Bilirubin Negative Urine Urobilinogen 0.2-1.0 Ur Leukocyte Esterase Large Urine RBC (Auto) 25 H Urine Microscopic WBC 66 H Ur Squamous Epith Cells 2 Calcium Oxalate Crystal Occ H Urine Bacteria Rare Assessment & Plan - Assessment and Plan (Free Text) Assessment: 67 year old Female with PMHx HTN, HLD, gastritis, liver cirrhosis & gallstones was sent to the ED bc blood cultures were positive for gram positive cocci. Bacteremia (possibly from UTI) -blood cultures were positive for gram positive cocci. -sp 1 dose of zosyn- will continue with zosyn -Added vanco -Id consult: cont. med regimen -FU blood cultures x 2 -FU echo UTI -elev. leuk esterase & WBC -FU urine culture HTN -C/w home meds Anxiety -C/w home meds <Moy Vázquez D - Last Filed: 11/13/18 18:57> Results - Vital Signs Recent Vital Signs: Last Vital Signs Temp 98.6 F 11/13/18 18:51 Pulse 78 11/13/18 18:51 Resp 15 11/13/18 18:51 BP 119/52 L 11/13/18 18:51 Pulse Ox 95 11/13/18 18:51 - Labs Result Diagrams: 11/13/18 13:40 11/13/18 13:40 Labs: Laboratory Results - last 24 hr 11/13/18 11/13/18 11/13/18 13:40 13:40 14:34 WBC 10.6 RBC 4.05 Hgb 11.4 L Hct 35.3 MCV 87.2 MCH 28.3 MCHC 32.4 L RDW 15.6 H Plt Count 140 MPV 10.1 Neut % (Auto) 52.9 Lymph % (Auto) 38.2 [place] % (Auto) 7.2 Eos % (Auto) 0.8 Baso % (Auto) 0.9 Neut # (Auto) 5.6 Lymph # (Auto) 4.1 [place] # (Auto) 0.8 Eos # (Auto) 0.1 Baso # (Auto) 0.1 Sodium 141 Potassium 3.6 Chloride 106 Carbon Dioxide 29 Anion Gap 10 BUN 23 H Creatinine 0.6 L Est GFR ( Amer) > 60 Est GFR (Non-Af Amer) > 60 Random Glucose 92 Calcium 9.0 Total Bilirubin 1.0 AST 50 H ALT 17 Alkaline Phosphatase 100 Total Protein 7.6 Albumin 3.3 L Globulin 4.3 H Albumin/Globulin Ratio 0.8 L Urine Color Yellow Urine Clarity Slighty-cloudy Urine pH 5.0 Ur Specific [place] 1.028 Urine Protein 30 Urine Glucose (UA) Neg Urine Ketones Negative Urine Blood Moderate Urine Nitrate Negative Urine Bilirubin Negative Urine Urobilinogen 0.2-1.0 Ur Leukocyte Esterase Large Urine RBC (Auto) 25 H Urine Microscopic WBC 66 H Ur Squamous Epith Cells 2 Calcium Oxalate Crystal Occ H Urine Bacteria Rare Influenza Typ A,B (EIA) 11/13/18 16:57 WBC RBC Hgb Hct MCV MCH MCHC RDW Plt Count MPV Neut % (Auto) Lymph % (Auto) [place] % (Auto) Eos % (Auto) Baso % (Auto) Neut # (Auto) Lymph # (Auto) [place] # (Auto) Eos # (Auto) Baso # (Auto) Sodium Potassium Chloride Carbon Dioxide Anion Gap BUN Creatinine Est GFR ( Amer) Est GFR (Non-Af Amer) Random Glucose Calcium Total Bilirubin AST ALT Alkaline Phosphatase Total Protein Albumin Globulin Albumin/Globulin Ratio Urine Color Urine Clarity Urine pH Ur Specific [place] Urine Protein Urine Glucose (UA) Urine Ketones Urine Blood Urine Nitrate Urine Bilirubin Urine Urobilinogen Ur Leukocyte Esterase Urine RBC (Auto) Urine Microscopic WBC Ur Squamous Epith Cells Calcium Oxalate Crystal Urine Bacteria Influenza Typ A,B (EIA) Negative for flu a/b Attending/Attestation - Attestation I have personally seen and examined this patient.: Yes I have fully participated in the care of the patient.: Yes I have reviewed all pertinent clinical information: Yes Notes (Text): 11/13/18 18:56 Patient seen and examined with resident. Case discussed and agreed with assessment and plan of management.
[2018-11-13] MEDS ORDERED: Vancomycin 1 g Inj ONE (17:53)
[2018-11-13] MEDS: Piperacillin/Tazobact 3.375 GM in Sodium Chloride 0.9% 100 ML IVPB SCH (22:09)
[2018-11-14 01:32] LABS: SQUAMOUS EPITHIAL < 1 /hpf (0-5); URINE BACTERIA RARE (<OCC); URINE BILIRUBIN NEGATIVE (NEGATIVE); URINE BLOOD SMALL (NEGATIVE); URINE CLARITY SLIGHTY-CLOUDY (Clear); URINE COLOR YELLOW (YELLOW); URINE GLUCOSE (UA) NEG (NEGATIVE); URINE LEUKOCYTE ESTERASE SMALL Leu/uL (Negative); URINE PROTEIN NEGATIVE (NEGATIVE); URINE UROBILINOGEN 0.2-1.0 mg/dL (0.2-1.0)
[2018-11-14] MEDS: Piperacillin/Tazobact 3.375 GM in Sodium Chloride 0.9% 100 ML IVPB SCH ×4 (04:35→22:27)
[2018-11-14 07:54] LABS: BASO # 0.1 K/uL (0.0-0.2); BASO % 0.8 % (0.0-2.0); EOS # 0.1 K/uL (0.0-0.7); EOS % 1.5 % (0.0-4.0); HEMOGLOBIN 11.1 g/dL (12.0-16.0); LYMPH # 3.9 K/uL (1.0-4.3); LYMPH % 51.7 % (20.0-40.0); MEAN CELL VOLUME 87.5 fl (81.0-99.0); MEAN CORPUSCULAR HEMOGLOBIN 28.7 pg (27.0-31.0); MEAN CORPUSCULAR HGB CONC 32.8 g/dL (33.0-37.0); MEAN PLATELET VOLUME 10.4 fl (7.2-11.7); MONO # 0.6 K/uL (0.0-0.8); NEUT # 2.9 K/uL (1.8-7.0); NRBC % 0.2 % (0.0-0.0); RBC 3.86 Mil/uL (3.80-5.20); RED CELL DISTRIBUTION WIDTH 15.7 % (11.5-14.5); WHITE BLOOD COUNT 7.5 K/uL (4.8-10.8)
[2018-11-14 08:21] LABS: BLOOD UREA NITROGEN 20 mg/dl (7-17); GFR NON-AFRICAN AMERICAN > 60
[2018-11-14] MEDS ORDERED: Pantoprazole 40 mg EC Tab PO SCH (09:00)
--- NOTE | 2018-11-14 11:20 | CP.PCM.PN ---
<Candy Sylvester - Last Filed: 11/14/18 14:13> Subjective - Date & Time of Evaluation Date of Evaluation: 11/14/18 Time of Evaluation: 09:35 - Subjective Subjective: [id number] Patient was seen and examined this morning. Patient still complaining of cough. She reports decreased appetite and chills. Patient continues to remain afebrile. Denies n/v/cp or sob. Objective - Vital Signs/Intake and Output Vital Signs (last 24 hours): Temp Pulse Resp BP Pulse Ox 97.9 F 63 20 118/73 95 11/14/18 08:54 11/14/18 08:54 11/14/18 08:54 11/14/18 08:54 11/14/18 08:54 - Medications Medications: Current Medications Albuterol Sulfate (Albuterol 0.083% Inhal Elizabeth (2.5 Mg/3 Ml) Ud) 2.5 mg IH RQ6 PRN PRN Reason: Shortness of Breath Alprazolam (Xanax) 1 mg PO Q12 PRN PRN Reason: Anxiety Carvedilol (Coreg) 6.25 mg PO BID [facility] Docusate Sodium (Colace) 100 mg PO BID [facility] Last Admin: 11/13/18 17:59 Dose: 100 mg Enoxaparin Sodium (Lovenox) 40 mg SC DAILY [facility]; Protocol Vancomycin HCl 1 gm/ Sodium (Chloride) 250 mls @ 166.667 mls/hr IVPB Q12 [facility]; Protocol Last Admin: 11/14/18 10:56 Dose: 166.667 mls/hr Piperacillin Sod/Tazobactam (Sod 3.375 gm/ Sodium Chloride) 100 mls @ 100 mls/hr IVPB Q6 [facility]; Protocol Last Admin: 11/14/18 10:54 Dose: 100 mls/hr Pantoprazole Sodium (Protonix Ec Tab) 40 mg PO DAILY [facility] - Labs Labs: 11/14/18 06:00 11/14/18 06:00 - Head Exam Head Exam: ATRAUMATIC, NORMAL INSPECTION - ENT Exam ENT Exam: Mucous Membranes Moist - Respiratory Exam Respiratory Exam: absent: Wheezes, Respiratory Distress, Stridor Additional comments: crackles in b/l lower bases - Cardiovascular Exam Cardiovascular Exam: REGULAR RHYTHM, +S1, +S2 - GI/Abdominal Exam GI & Abdominal Exam: Soft, Normal Bowel Sounds. absent: Guarding, Rigid, Tenderness - Extremities Exam Extremities Exam: absent: Calf Tenderness - Neurological Exam Neurological Exam: Alert, Awake, Oriented x3 - Psychiatric Exam Psychiatric exam: Normal Mood - Skin Skin Exam: Dry, Intact Assessment and Plan - Assessment and Plan (Free Text) Assessment: 67 year old Female with PMHx HTN, HLD, gastritis, liver cirrhosis & gallstones was sent to the ED bc blood cultures were positive for gram positive cocci. 1. Bacteremia (possibly from UTI) -blood cultures were positive for gram positive cocci. -Afrebile & wbc unremarkable -CXR bibasilar atelectasis, no infiltrate -C/w vanco & zosyn -FU blood cultures x 2 & repeat cbc -Awaiting report of echo -Id recommendations appreciated 2. Cough -CXR bibasilar atelectasis, no infiltrate -C/w Iv antibiotics -Mucinex DM added 3. UTI -elev. leuk esterase & WBC -FU urine culture 4. HTN -C/w coreg 6.25mg PO BID 5. Anxiety -C/w xanax 1 mg PO Q12 PRN 6. Gastritis -C/w protonix 40mg PO QD 7. hx Liver cirrhosis -FU CMP <Moy Vázquez D - Last Filed: 11/14/18 20:34> Objective - Vital Signs/Intake and Output Vital Signs (last 24 hours): Temp Pulse Resp BP Pulse Ox 98.8 F 84 19 91/62 L 94 L 11/14/18 16:38 11/14/18 17:11 11/14/18 16:38 11/14/18 17:11 11/14/18 16:38 - Medications Medications: Current Medications Albuterol Sulfate (Albuterol 0.083% Inhal Elizabeth (2.5 Mg/3 Ml) Ud) 2.5 mg IH RQ6 PRN PRN Reason: Shortness of Breath Alprazolam (Xanax) 1 mg PO Q12 PRN PRN Reason: Anxiety Last Admin: 11/14/18 11:32 Dose: 1 mg Carvedilol (Coreg) 6.25 mg PO BID [facility] Last Admin: 11/14/18 17:11 Dose: Not Given Docusate Sodium (Colace) 100 mg PO BID [facility] Last Admin: 11/14/18 17:10 Dose: 100 mg Enoxaparin Sodium (Lovenox) 40 mg SC DAILY [facility]; Protocol Last Admin: 11/14/18 13:46 Dose: 40 mg Guaifenesin/Dextromethorphan (Mucinex-Dm 600-30 Mg) 1 tab PO BID [facility] Last Admin: 11/14/18 17:10 Dose: 1 tab Vancomycin HCl 1 gm/ Sodium (Chloride) 250 mls @ 166.667 mls/hr IVPB Q12 [facility]; Protocol Last Admin: 11/14/18 10:56 Dose: 166.667 mls/hr Piperacillin Sod/Tazobactam (Sod 3.375 gm/ Sodium Chloride) 100 mls @ 100 mls/hr IVPB Q6 [facility]; Protocol Last Admin: 11/14/18 15:55 Dose: 100 mls/hr Pantoprazole Sodium (Protonix Ec Tab) 40 mg PO DAILY [facility] Last Admin: 11/14/18 11:33 Dose: 40 mg - Labs Labs: 11/14/18 06:00 11/14/18 06:00 Attending/Attestation - Attestation I have personally seen and examined this patient.: Yes I have fully participated in the care of the patient.: Yes I have reviewed all pertinent clinical information, including history, physical exam and plan: Yes Notes (Text): 11/14/18 20:34 Patient seen and examined with resident. Case discussed and agreed with assessment and plan.
[2018-11-14] MEDS: Pantoprazole 40 mg EC Tab PO SCH (11:33)
[2018-11-14] MEDS: guaiFENesin-DM 600-30 mg ER Tab PO SCH ×2 (13:45→17:10)
[2018-11-14] MEDS: Enoxaparin 40 mg Syringe SC SCH (13:46)
[2018-11-14] MEDS ORDERED: Potassium Chloride 20 mEq ER Tab PO ONE (15:00)
--- NOTE | 2018-11-14 15:48 | CARD ---
APPROVED REPORT Date of service: 11/14/2018 EXAM: Two-dimensional and M-mode echocardiogram with Doppler and color Doppler. Other Information Quality : GoodRhythm : NSR INDICATION Bacteremia (Gram+Cocci) 2D DIMENSIONS IVSd1.09 (0.7-1.1cm)LVDd4.53 (3.9-5.9cm) PWd0.97 (0.7-1.1cm)LA Xlorpe42 (18-58mL) LVDs3.19 (2.5-4.0cm)FS (%) 29.5 % SV47.39 mlLVEF (%)54.3 (>50%) CO3.44 L/min M-Mode DIMENSIONS Left Atrium (MM)4.93 (2.5-4.0cm)Aortic Root2.40 (2.2-3.7cm) Aortic Cusp Exc.1.50 (1.5-2.0cm) Aortic Valve AoV Peak Owettgul614.6cm/sAoV VTI39.6cmAO Peak GR.14mmHg LVOT Peak Ftosnlic823.1cm/sLVOT VTI28.34cmAO Mean GR.7mmHg Mitral Valve MV E Tguszmyc05.8cm/sMV E Peak Gr.91mmHgMV DECEL [id number] MV A Ehlumpbi73.5cm/sMV JQD92vcG/A ratio0.8 MVA (PHT)2.82cm2 TDI Lateral E' Peak V9.45cm/sMedial E' Peak V5.54cm/sE/Lateral E'7.7 E/Medial E'13.1 Pulmonary Valve PV Peak Uymzynxf466.3cm/s Tricuspid Valve TR Peak Syusxxta546qg/sRAP [id number] Peak Gr.9mmHg [id number] LEFT VENTRICLE The left ventricle is normal size. There is normal left ventricular wall thickness. The left ventricular systolic function is normal. The estimated ejection fraction is 55-60 % No regional wall motion abnormalities noted.. Transmitral Doppler flow pattern is Grade I-abnormal relaxation pattern. No left ventricle thrombus noted on this study. There is no ventricular septal defect visualized. There is no left ventricular aneurysm. There is no mass noted in the left ventricle. RIGHT VENTRICLE The right ventricle is normal size. There is normal right ventricular wall thickness. The right ventricular systolic function is normal. ATRIA The left atrium is moderately dilated. The right atrium size is normal. The interatrial septum is intact with no evidence for an atrial septal defect. AORTIC VALVE The aortic valve is normal in structure. No aortic regurgitation is present. There is no aortic valvular stenosis. There is no aortic valvular vegetation. MITRAL VALVE The mitral valve is normal in structure. There is no evidence of mitral valve prolapse. There is no mitral valve stenosis. There is mild mitral valve regurgitation noted. TRICUSPID VALVE The tricuspid valve is normal in structure. There is mild tricuspid valve regurgitation noted. RVSP is calculated at 20 mm Hg. There is no tricuspid valve prolapse or vegetation. There is no tricuspid valve stenosis. PULMONIC VALVE The pulmonary valve is normal in structure. There is no pulmonic valvular regurgitation. There is no pulmonic valvular stenosis. GREAT VESSELS The aortic root is normal in size. The ascending aorta is normal in size. The pulmonary artery is normal. The IVC is normal in size and collapses >50% with inspiration. PERICARDIAL EFFUSION There is no pericardial effusion. There is no pleural effusion. <Conclusion> The estimated ejection fraction is 55-60 % Transmitral Doppler flow pattern is Grade I-abnormal relaxation pattern. Normal LV strain ( -22). The left atrium is moderately dilated. There is mild mitral valve regurgitation noted. There is mild tricuspid valve regurgitation noted. RVSP is calculated at 20 mm Hg.
--- NOTE | 2018-11-14 17:12 | CP.PCM.CON ---
History of Present Illness - History of Present Illness History of Present Illness: Infectious Disease Consultation Note- ASked to see this patietn at the request of for staph bacteremia. HPI- Pt. is a 67 year old female with PMH of HTN, HLD< gallstones and liver cirrhosis who was in ED few days ago with c/o cough and was d/c home, however, she was recalled by ED because her blood cx returned as gram positive cocci. Pt. states she had some fevers but no more. she states she still has some cough but is not productive. Shew denies any dysurea or abdominal pain. she states she has no appetite adn had some nausea before but no nausea now. denies any diarrhea. she denies any metals or foreign bodies in her body. Also she states she has hepatitis but she is not sure B or C and denies treatment for it. She states she f/u with [facility] hot knife. PMHx: HTN, Hyperlipidemia, autoimmune hepatitis, multiple kidney stones, ?CAD, gastritis, gallstone Surgical Hx: b/l knee surgery, shoulder surgery, ?Cardiac cath Family Hx: mother has hx stroke and CAD Social Hx: Lives at home, denies EtOH or tobacco Allergies: Codeine and peanut ED course -VS stable WBC-10.6 UA- WBC: 66, large leukocytes, neg nitrates CXR reported as mild bibasilar atelectasis; scattered peribronchial cuffing changes possibly representing sequela of reactive/inflammatory airway disease or viral illness. Review of Systems - Review of Systems Review of Systems: ROS- states hyad fever at home but not now, denies any RUSSELL, + cough but nonproductive, denies any sob, denies any chest pain, had nausea but denies it now, denies any abd. pain, decreased appetite, denies any dysurea, denies any diarrhea Past Patient History - Infectious Disease Hx of Infectious Diseases: None - Tetanus Immunizations Tetanus Immunization: Unknown - Past Medical History & Family History Past Medical History?: Yes - Past Social History Smoking Status: Never Smoked Drugs: Denies Home Situation {Lives}: With Family - CARDIAC Hx Cardiac Disorders: Yes Hx Hypercholesterolemia: Yes Hx Hypertension: Yes - PULMONARY Hx Respiratory Disorders: Yes Hx Asthma: Yes Hx Bronchitis: Yes Hx Pneumonia: Yes (treated as outpt in May 2016) - NEUROLOGICAL Hx Neurological Disorder: Yes Hx Migraine: Yes - HEENT Hx HEENT Problems: No - RENAL Hx Chronic Kidney Disease: Yes Hx Kidney Stones: Yes - ENDOCRINE/METABOLIC Hx Endocrine Disorders: No - HEMATOLOGICAL/ONCOLOGICAL Hx Blood Disorders: No - INTEGUMENTARY Hx Dermatological Problems: No - MUSCULOSKELETAL/RHEUMATOLOGICAL Hx Musculoskeletal Disorders: Yes Hx Arthritis: Yes Hx Falls: Yes Hx Fractures: Yes - GASTROINTESTINAL Hx Gastrointestinal Disorders: Yes Hx Diverticulitis: Yes Hx Gastritis: Yes - GENITOURINARY/GYNECOLOGICAL Hx Genitourinary Disorders: No - PSYCHIATRIC Hx Psychophysiologic Disorder: Yes Hx Anxiety: Yes Hx Depression: Yes - SURGICAL HISTORY Hx Surgeries: Yes Hx Section: Yes Hx Orthopedic Surgery: Yes (bilateral shoulder, right kne arthroscopy) Other/Comment: JASON. SHOULDER SURGERY - ANESTHESIA Hx Anesthesia: Yes Hx Anesthesia Reactions: No Hx Malignant Hyperthermia: No Meds Home Medications: Home Medication List Medication Instructions Recorded Confirmed Type Losartan [Cozaar] 100 mg PO DAILY #30 tab 11/13/18 Rx Allergies/Adverse Reactions: Allergies Allergy/AdvReac Type Severity Reaction Status Date / Time codeine Allergy RASH Verified 10/15/18 20:55 peanut Allergy RASH Verified 10/15/18 20:55 - Medications Medications: Current Medications Albuterol Sulfate (Albuterol 0.083% Inhal Elizabeth (2.5 Mg/3 Ml) Ud) 2.5 mg IH RQ6 PRN PRN Reason: Shortness of Breath Alprazolam (Xanax) 1 mg PO Q12 PRN PRN Reason: Anxiety Last Admin: 11/14/18 11:32 Dose: 1 mg Carvedilol (Coreg) 6.25 mg PO BID [facility] Last Admin: 11/14/18 17:11 Dose: Not Given Docusate Sodium (Colace) 100 mg PO BID [facility] Last Admin: 11/14/18 17:10 Dose: 100 mg Enoxaparin Sodium (Lovenox) 40 mg SC DAILY [facility]; Protocol Last Admin: 11/14/18 13:46 Dose: 40 mg Guaifenesin/Dextromethorphan (Mucinex-Dm 600-30 Mg) 1 tab PO BID [facility] Last Admin: 11/14/18 17:10 Dose: 1 tab Vancomycin HCl 1 gm/ Sodium (Chloride) 250 mls @ 166.667 mls/hr IVPB Q12 [facility]; Protocol Last Admin: 11/14/18 10:56 Dose: 166.667 mls/hr Piperacillin Sod/Tazobactam (Sod 3.375 gm/ Sodium Chloride) 100 mls @ 100 mls/hr IVPB Q6 [facility]; Protocol Last Admin: 11/14/18 15:55 Dose: 100 mls/hr Pantoprazole Sodium (Protonix Ec Tab) 40 mg PO DAILY [facility] Last Admin: 11/14/18 11:33 Dose: 40 mg Physical Exam - Constitutional Appears: No Acute Distress - Head Exam Head Exam: ATRAUMATIC - Eye Exam Eye Exam: EOMI, PERRL - ENT Exam ENT Exam: Normal Oropharynx - Neck Exam Neck exam: Positive for: Full Rom - Respiratory Exam Respiratory Exam: NORMAL BREATHING PATTERN Additional comments: slightly decreased at bases no wheezing - Cardiovascular Exam Cardiovascular Exam: RRR, +S1, +S2 - GI/Abdominal Exam GI & Abdominal Exam: Normal Bowel Sounds, Soft Additional comments: NT, ND - Extremities Exam Extremities exam: Positive for: normal inspection - Neurological Exam Neurological exam: Alert, Oriented x3 Results - Vital Signs Recent Vital Signs: Last Vital Signs Temp 98.8 F 11/14/18 16:38 Pulse 84 11/14/18 17:11 Resp 19 11/14/18 16:38 BP 91/62 L 11/14/18 17:11 Pulse Ox 94 L 11/14/18 16:38 - Labs Result Diagrams: 11/15/18 05:30 11/15/18 05:30 Labs: Laboratory Results - last 24 hr 11/13/18 11/14/18 11/14/18 16:57 01:26 06:00 WBC 7.5 RBC 3.86 Hgb 11.1 L Hct 33.8 L MCV 87.5 MCH 28.7 MCHC 32.8 L RDW 15.7 H Plt Count 123 L MPV 10.4 Neut % (Auto) 38.0 L Lymph % (Auto) 51.7 H [place] % (Auto) 8.0 Eos % (Auto) 1.5 Baso % (Auto) 0.8 Neut # (Auto) 2.9 Lymph # (Auto) 3.9 [place] # (Auto) 0.6 Eos # (Auto) 0.1 Baso # (Auto) 0.1 Sodium Potassium Chloride Carbon Dioxide Anion Gap BUN Creatinine Est GFR ( Amer) Est GFR (Non-Af Amer) Random Glucose Calcium Urine Color Yellow Urine Clarity Slighty-cloudy Urine pH 6.0 Ur Specific [place] 1.023 Urine Protein Negative Urine Glucose (UA) Neg Urine Ketones Negative Urine Blood Small Urine Nitrate Negative Urine Bilirubin Negative Urine Urobilinogen 0.2-1.0 Ur Leukocyte Esterase Small Urine RBC (Auto) 10 H Urine Microscopic WBC 8 H Ur Squamous Epith Cells < 1 Urine Bacteria Rare Influenza Typ A,B (EIA) Negative for flu a/b 11/14/18 06:00 WBC RBC Hgb Hct MCV MCH MCHC RDW Plt Count MPV Neut % (Auto) Lymph % (Auto) [place] % (Auto) Eos % (Auto) Baso % (Auto) Neut # (Auto) Lymph # (Auto) [place] # (Auto) Eos # (Auto) Baso # (Auto) Sodium 139 Potassium 3.4 L Chloride 106 Carbon Dioxide 27 Anion Gap 9 L BUN 20 H Creatinine 0.6 L Est GFR ( Amer) > 60 Est GFR (Non-Af Amer) > 60 Random Glucose 87 Calcium 8.0 L Urine Color Urine Clarity Urine pH Ur Specific [place] Urine Protein Urine Glucose (UA) Urine Ketones Urine Blood Urine Nitrate Urine Bilirubin Urine Urobilinogen Ur Leukocyte Esterase Urine RBC (Auto) Urine Microscopic WBC Ur Squamous Epith Cells Urine Bacteria Influenza Typ A,B (EIA) Microbiology 11/13/18 14:00 Blood Blood Culture - Preliminary NO GROWTH AFTER 24 HOURS 11/13/18 13:40 Blood Blood Culture - Preliminary NO GROWTH AFTER 24 HOURS Microbiology 11/11/18 13:56 Blood-Venous S.aureus & Coag-Neg Staph PNA FISH - Final 11/11/18 13:56 Blood-Venous Gram Stain - Final Coagulase Neg Staphylococcus 11/11/18 13:26 Blood-Venous Blood Culture - Final 11/11/18 13:26 Blood-Venous Gram Stain - Final Staphylococcus Sp Coag Neg Accession No. : [id number] Patient Name / ID : LUIS MANUEL JOHNSON / [id number] Exam Date : 11/13/2018 14:01:13 ( Approved ) Study Comment : Sex / Age : F / 68Y Creator : Conner Camarena MD Dictator : Conner Camarena MD Logistics Tech : Sign Language Interpreter : Conner Camarena MD Approver2 : Report Date : 11/13/2018 14:38:34 My Comment : Date of service: 11/13/2018 HISTORY: Cough COMPARISON: Comparison with chest Xray dated 11/11/18 TECHNIQUE: 1 view obtained. FINDINGS: LUNGS: Poor inspiration with low lung volumes common crowded bronchovascular markings and mild bibasilar atelectasis. In addition, there is a more discrete elliptical shaped focus of presumed discoid type atelectasis in the lateral aspect left mid to lower lung field. The interstitial markings are also slightly increased and coarsened with a few scattered peribronchial cuffing changes possibly representing sequela of reactive/inflammatory airway disease or viral illness. PLEURA: No significant pleural effusion identified, no pneumothorax apparent. CARDIOVASCULAR: No aortic atherosclerotic calcification present. Normal cardiac size. No pulmonary vascular congestion. OSSEOUS STRUCTURES: No significant abnormalities. VISUALIZED UPPER ABDOMEN: Normal. OTHER FINDINGS: None. IMPRESSION: Poor inspiration with low lung volumes common crowded bronchovascular markings and mild bibasilar atelectasis. In addition, there is a more discrete elliptical shaped focus of presumed discoid type atelectasis in the lateral aspe ct left mid to lower lung field. The interstitial markings are also slightly increased and coarsened with a few scattered peribronchial cuffing changes possibly representing sequela of reactive/inflammatory airway disease or viral illness. Assessment & Plan (1) Positive blood cultures Status: Acute (2) HTN (hypertension) Status: Chronic - Assessment and Plan (Free Text) Assessment: A/P 68 year old female with multiple medical conditions was recalled for positive blood cx. source of the positive blood cx unknown at this time. possible contamination as pt.is afebrile and has normal wbc count and coag neg staph. TTE- no vegetations as per report. Plan- continue with IV vanco for now for this coag neg staph bacteremia. keep trough <20 repeat blood cx- neg x 2. check UA and urine cx. All labs and imaging reviewed. all above d/w patient and verbalizes full understanding of all above. Thank you for allowing me to take part in the care of this patient.
[2018-11-14] MEDS: Albuterol 0.083% Inhal Sol (2.5 mg/3 mL) UD IH PRN (21:12)
[2018-11-15] MEDS: Piperacillin/Tazobact 3.375 GM in Sodium Chloride 0.9% 100 ML IVPB SCH ×3 (04:18→16:01)
[2018-11-15 07:18] LABS: BASO # 0.1 K/uL (0.0-0.2); BASO % 0.9 % (0.0-2.0); EOS # 0.2 K/uL (0.0-0.7); EOS % 3.2 % (0.0-4.0); HEMOGLOBIN 11.1 g/dL (12.0-16.0); LYMPH # 3.7 K/uL (1.0-4.3); LYMPH % 52.3 % (20.0-40.0); MEAN CELL VOLUME 87.4 fl (81.0-99.0); MEAN CORPUSCULAR HEMOGLOBIN 28.4 pg (27.0-31.0); MEAN CORPUSCULAR HGB CONC 32.5 g/dL (33.0-37.0); MEAN PLATELET VOLUME 10.5 fl (7.2-11.7); MONO # 0.6 K/uL (0.0-0.8); NEUT # 2.5 K/uL (1.8-7.0); NEUT % 35.6 % (50.0-75.0); NRBC % 0.1 % (0.0-0.0); RBC 3.89 Mil/uL (3.80-5.20); RED CELL DISTRIBUTION WIDTH 15.2 % (11.5-14.5); WHITE BLOOD COUNT 7.1 K/uL (4.8-10.8)
[2018-11-15 07:31] LABS: ALB/GLOB RATIO 0.7 (1.0-2.1); ALBUMIN 2.7 g/dL (3.5-5.0); ALT/SGPT 26 U/L (9-52); AST/SGOT 36 U/L (14-36); BLOOD UREA NITROGEN 14 mg/dl (7-17); CALCIUM 8.1 mg/dL (8.4-10.2); GFR NON-AFRICAN AMERICAN > 60
[2018-11-15] MEDS: Enoxaparin 40 mg Syringe SC SCH (08:57)
[2018-11-15] MEDS: Pantoprazole 40 mg EC Tab PO SCH (08:58)
[2018-11-15] MEDS: guaiFENesin-DM 600-30 mg ER Tab PO SCH ×2 (08:58→16:02)
[2018-11-15] MEDS: Albuterol 0.083% Inhal Sol (2.5 mg/3 mL) UD IH PRN (10:30)
--- NOTE | 2018-11-15 12:29 | CP.PCM.PN ---
<Celeste Gallagher - Last Filed: 11/15/18 12:38> Subjective - Date & Time of Evaluation Date of Evaluation: 11/15/18 Time of Evaluation: 12:29 - Subjective Subjective: Patient seen and examined bedside. Admits to being tired and ongoing cough but denies chest pain, SOB, nausea, vomiting, fever, palpitations and dizziness. Objective - Vital Signs/Intake and Output Vital Signs (last 24 hours): Temp Pulse Resp BP Pulse Ox 98 F 87 20 114/78 96 11/15/18 08:36 11/15/18 08:57 11/15/18 08:36 11/15/18 08:57 11/15/18 08:36 - Medications Medications: Current Medications Albuterol Sulfate (Albuterol 0.083% Inhal Elizabeth (2.5 Mg/3 Ml) Ud) 2.5 mg IH RQ6 PRN PRN Reason: Shortness of Breath Last Admin: 11/15/18 10:30 Dose: 2.5 mg Alprazolam (Xanax) 1 mg PO Q12 PRN PRN Reason: Anxiety Last Admin: 11/14/18 11:32 Dose: 1 mg Carvedilol (Coreg) 6.25 mg PO BID [facility] Last Admin: 11/15/18 08:57 Dose: Not Given Docusate Sodium (Colace) 100 mg PO BID [facility] Last Admin: 11/15/18 08:56 Dose: Not Given Enoxaparin Sodium (Lovenox) 40 mg SC DAILY [facility]; Protocol Last Admin: 11/15/18 08:57 Dose: 40 mg Guaifenesin/Dextromethorphan (Mucinex-Dm 600-30 Mg) 1 tab PO BID [facility] Last Admin: 11/15/18 08:58 Dose: 1 tab Vancomycin HCl 1 gm/ Sodium (Chloride) 250 mls @ 166.667 mls/hr IVPB Q12 [facility]; Protocol Last Admin: 11/15/18 09:05 Dose: 166.667 mls/hr Piperacillin Sod/Tazobactam (Sod 3.375 gm/ Sodium Chloride) 100 mls @ 100 mls/hr IVPB Q6 [facility]; Protocol Last Admin: 11/15/18 09:04 Dose: 100 mls/hr Pantoprazole Sodium (Protonix Ec Tab) 40 mg PO DAILY [facility] Last Admin: 11/15/18 08:58 Dose: 40 mg - Labs Labs: 11/15/18 05:30 11/15/18 05:30 - Constitutional Appears: No Acute Distress - Head Exam Head Exam: NORMAL INSPECTION - ENT Exam ENT Exam: Mucous Membranes Moist - Respiratory Exam Respiratory Exam: absent: Wheezes, Respiratory Distress Additional comments: b/l crackles - Cardiovascular Exam Cardiovascular Exam: REGULAR RHYTHM - GI/Abdominal Exam GI & Abdominal Exam: Soft. absent: Tenderness - Neurological Exam Neurological Exam: Alert, Awake, Oriented x3 - Psychiatric Exam Psychiatric exam: Normal Affect, Normal Mood - Skin Skin Exam: Dry, Intact, Normal Color, Warm Assessment and Plan - Assessment and Plan (Free Text) Assessment: 67 year old Female with PMHx HTN, HLD, gastritis, liver cirrhosis & gallstones was sent to the ED bc blood cultures were positive for gram positive cocci. Plan: Bacteremia (possibly from UTI) -blood cultures were positive for gram positive cocci. -Afrebile & wbc unremarkable -CXR bibasilar atelectasis, no infiltrate -C/w vanco & zosyn -Blood cultures: no growth at 24 hours -ECHO (11/13): EF 55-60%, no vegetations -Id recommendations appreciated Cough -CXR bibasilar atelectasis, no infiltrate -C/w Iv antibiotics -Mucinex DM added UTI -elev. leuk esterase & WBC on admission -UA 11/15: 10 RBC, 8 WBC, small leuk esterase -FU urine culture, pending HTN -C/w coreg 6.25mg PO BID Anxiety -C/w xanax 1 mg PO Q12 PRN Gastritis -C/w protonix 40mg PO QD Hx Liver cirrhosis -AST/ALT wnl DVT Prophylaxis Lovenox 40mg daily <Moy Vázquez D - Last Filed: 11/15/18 15:01> Objective - Vital Signs/Intake and Output Vital Signs (last 24 hours): Temp Pulse Resp BP Pulse Ox 98 F 87 20 114/78 96 11/15/18 08:36 11/15/18 08:57 11/15/18 08:36 11/15/18 08:57 11/15/18 08:36 - Medications Medications: Current Medications Albuterol Sulfate (Albuterol 0.083% Inhal Elizabeth (2.5 Mg/3 Ml) Ud) 2.5 mg IH RQ6 PRN PRN Reason: Shortness of Breath Last Admin: 11/15/18 10:30 Dose: 2.5 mg Alprazolam (Xanax) 1 mg PO Q12 PRN PRN Reason: Anxiety Last Admin: 11/14/18 11:32 Dose: 1 mg Carvedilol (Coreg) 6.25 mg PO BID [facility] Last Admin: 11/15/18 08:57 Dose: Not Given Docusate Sodium (Colace) 100 mg PO BID [facility] Last Admin: 11/15/18 08:56 Dose: Not Given Guaifenesin/Dextromethorphan (Mucinex-Dm 600-30 Mg) 1 tab PO BID [facility] Last Admin: 11/15/18 08:58 Dose: 1 tab Vancomycin HCl 1 gm/ Sodium (Chloride) 250 mls @ 166.667 mls/hr IVPB Q12 [facility]; Protocol Last Admin: 11/15/18 09:05 Dose: 166.667 mls/hr Piperacillin Sod/Tazobactam (Sod 3.375 gm/ Sodium Chloride) 100 mls @ 100 mls/hr IVPB Q6 [facility]; Protocol Last Admin: 11/15/18 09:04 Dose: 100 mls/hr Pantoprazole Sodium (Protonix Ec Tab) 40 mg PO DAILY [facility] Last Admin: 11/15/18 08:58 Dose: 40 mg - Labs Labs: 11/15/18 05:30 11/15/18 05:30 Attending/Attestation - Attestation I have personally seen and examined this patient.: Yes I have fully participated in the care of the patient.: Yes I have reviewed all pertinent clinical information, including history, physical exam and plan: Yes Notes (Text): 11/15/18 14:59 Patient seen and examined with resident. Case discussed and agreed with assessment and plan. Urinalysis revealed UTI. Son claimed his mother had recent GI 3-5 months ago.
[2018-11-16] MEDS: Piperacillin/Tazobact 3.375 GM in Sodium Chloride 0.9% 100 ML IVPB SCH ×3 (00:07→09:38)
[2018-11-16 06:15] LABS: BASO % 0.5 % (0.0-2.0); EOS # 0.3 K/uL (0.0-0.7); EOS % 3.6 % (0.0-4.0); HEMOGLOBIN 10.9 g/dL (12.0-16.0); LYMPH # 3.3 K/uL (1.0-4.3); LYMPH % 47.7 % (20.0-40.0); MEAN CELL VOLUME 87.2 fl (81.0-99.0); MEAN CORPUSCULAR HEMOGLOBIN 28.7 pg (27.0-31.0); MEAN CORPUSCULAR HGB CONC 32.9 g/dL (33.0-37.0); MEAN PLATELET VOLUME 10.5 fl (7.2-11.7); MONO # 0.6 K/uL (0.0-0.8); MONO % 9.4 % (0.0-10.0); NEUT # 2.7 K/uL (1.8-7.0); NEUT % 38.8 % (50.0-75.0); NRBC % 0.1 % (0.0-0.0); RBC 3.81 Mil/uL (3.80-5.20); RED CELL DISTRIBUTION WIDTH 15.2 % (11.5-14.5); WHITE BLOOD COUNT 6.9 K/uL (4.8-10.8)
[2018-11-16 06:36] LABS: ALB/GLOB RATIO 0.7 (1.0-2.1); ALBUMIN 2.7 g/dL (3.5-5.0); ALT/SGPT 22 U/L (9-52); AST/SGOT 35 U/L (14-36); BLOOD UREA NITROGEN 12 mg/dl (7-17); GFR NON-AFRICAN AMERICAN > 60
[2018-11-16] MEDS: guaiFENesin-DM 600-30 mg ER Tab PO SCH (09:39)
[2018-11-16] MEDS: Pantoprazole 40 mg EC Tab PO SCH (09:39)
--- NOTE | 2018-11-16 13:11 | CP.PCM.PN ---
Objective - Vital Signs/Intake and Output Vital Signs (last 24 hours): Temp Pulse Resp BP Pulse Ox 98.4 F 88 19 117/77 98 11/16/18 08:12 11/16/18 09:44 11/16/18 08:12 11/16/18 09:44 11/16/18 08:12 - Medications Medications: Current Medications Albuterol Sulfate (Albuterol 0.083% Inhal Elizabeth (2.5 Mg/3 Ml) Ud) 2.5 mg IH RQ6 PRN PRN Reason: Shortness of Breath Last Admin: 11/15/18 10:30 Dose: 2.5 mg Alprazolam (Xanax) 1 mg PO Q12 PRN PRN Reason: Anxiety Last Admin: 11/14/18 11:32 Dose: 1 mg Carvedilol (Coreg) 6.25 mg PO BID [facility] Last Admin: 11/16/18 09:44 Dose: Not Given Docusate Sodium (Colace) 100 mg PO BID [facility] Last Admin: 11/16/18 09:44 Dose: Not Given Guaifenesin/Dextromethorphan (Mucinex-Dm 600-30 Mg) 1 tab PO BID [facility] Last Admin: 11/16/18 09:39 Dose: 1 tab Vancomycin HCl 1 gm/ Sodium (Chloride) 250 mls @ 166.667 mls/hr IVPB Q12 [facility]; Protocol Last Admin: 11/16/18 09:38 Dose: 166.667 mls/hr Piperacillin Sod/Tazobactam (Sod 3.375 gm/ Sodium Chloride) 100 mls @ 100 mls/hr IVPB Q6 [facility]; Protocol Last Admin: 11/16/18 09:38 Dose: 100 mls/hr Pantoprazole Sodium (Protonix Ec Tab) 40 mg PO DAILY [facility] Last Admin: 11/16/18 09:39 Dose: 40 mg - Labs Labs: 11/16/18 05:20 11/16/18 05:20
--- NOTE | 2018-11-16 14:34 | CP.PCM.PN ---
Subjective - Date & Time of Evaluation Date of Evaluation: 11/16/18 Time of Evaluation: 14:33 - Subjective Subjective: ID note- Patient seen and examined today. no new events overnight. still has some cough but is dry. Objective - Vital Signs/Intake and Output Vital Signs (last 24 hours): Temp Pulse Resp BP Pulse Ox 98.4 F 88 19 117/77 98 11/16/18 08:12 11/16/18 09:44 11/16/18 08:12 11/16/18 09:44 11/16/18 08:12 - Medications Medications: Current Medications Albuterol Sulfate (Albuterol 0.083% Inhal Elizabeth (2.5 Mg/3 Ml) Ud) 2.5 mg IH RQ6 PRN PRN Reason: Shortness of Breath Last Admin: 11/15/18 10:30 Dose: 2.5 mg Alprazolam (Xanax) 1 mg PO Q12 PRN PRN Reason: Anxiety Last Admin: 11/14/18 11:32 Dose: 1 mg Carvedilol (Coreg) 6.25 mg PO BID [facility] Last Admin: 11/16/18 09:44 Dose: Not Given Docusate Sodium (Colace) 100 mg PO BID [facility] Last Admin: 11/16/18 09:44 Dose: Not Given Guaifenesin/Dextromethorphan (Mucinex-Dm 600-30 Mg) 1 tab PO BID [facility] Last Admin: 11/16/18 09:39 Dose: 1 tab Vancomycin HCl 1 gm/ Sodium (Chloride) 250 mls @ 166.667 mls/hr IVPB Q12 [facility]; Protocol Last Admin: 11/16/18 09:38 Dose: 166.667 mls/hr Piperacillin Sod/Tazobactam (Sod 3.375 gm/ Sodium Chloride) 100 mls @ 100 mls/hr IVPB Q6 [facility]; Protocol Last Admin: 11/16/18 09:38 Dose: 100 mls/hr Pantoprazole Sodium (Protonix Ec Tab) 40 mg PO DAILY [facility] Last Admin: 11/16/18 09:39 Dose: 40 mg - Labs Labs: - Additional Findings Additional findings: - Constitutional Appears: No Acute Distress - Head Exam Head Exam: ATRAUMATIC - Eye Exam Eye Exam: EOMI, PERRL - ENT Exam ENT Exam: Normal Oropharynx - Neck Exam Neck exam: Positive for: Full Rom - Respiratory Exam Respiratory Exam: NORMAL BREATHING PATTERN Additional comments: slightly decreased at bases no wheezing - Cardiovascular Exam Cardiovascular Exam: RRR, +S1, +S2 - GI/Abdominal Exam GI & Abdominal Exam: Normal Bowel Sounds, Soft Additional comments: NT, ND - Extremities Exam Extremities exam: Positive for: normal inspection - Neurological Exam Neurological exam: Alert, Oriented x 3 Laboratory Results - last 72 hr 11/13/18 11/13/18 11/14/18 14:34 16:57 01:26 WBC RBC Hgb Hct MCV MCH MCHC RDW Plt Count MPV Neut % (Auto) Lymph % (Auto) [place] % (Auto) Eos % (Auto) Baso % (Auto) Neut # (Auto) Lymph # (Auto) [place] # (Auto) Eos # (Auto) Baso # (Auto) Sodium Potassium Chloride Carbon Dioxide Anion Gap BUN Creatinine Est GFR ( Amer) Est GFR (Non-Af Amer) Random Glucose Calcium Total Bilirubin AST ALT Alkaline Phosphatase Total Protein Albumin Globulin Albumin/Globulin Ratio Urine Color Yellow Yellow Urine Clarity Slighty-cloudy Slighty-cloudy Urine pH 5.0 6.0 Ur Specific [place] 1.028 1.023 Urine Protein 30 Negative Urine Glucose (UA) Neg Neg Urine Ketones Negative Negative Urine Blood Moderate Small Urine Nitrate Negative Negative Urine Bilirubin Negative Negative Urine Urobilinogen 0.2-1.0 0.2-1.0 Ur Leukocyte Esterase Large Small Urine RBC (Auto) 25 H 10 H Urine Microscopic WBC 66 H 8 H Ur Squamous Epith Cells 2 < 1 Calcium Oxalate Crystal Occ H Urine Bacteria Rare Rare Vancomycin Trough Influenza Typ A,B (EIA) Negative for flu a/b 11/14/18 11/14/18 11/15/18 06:00 06:00 05:30 WBC 7.5 RBC 3.86 Hgb 11.1 L Hct 33.8 L MCV 87.5 MCH 28.7 MCHC 32.8 L RDW 15.7 H Plt Count 123 L MPV 10.4 Neut % (Auto) 38.0 L Lymph % (Auto) 51.7 H [place] % (Auto) 8.0 Eos % (Auto) 1.5 Baso % (Auto) 0.8 Neut # (Auto) 2.9 Lymph # (Auto) 3.9 [place] # (Auto) 0.6 Eos # (Auto) 0.1 Baso # (Auto) 0.1 Sodium 139 Potassium 3.4 L Chloride 106 Carbon Dioxide 27 Anion Gap 9 L BUN 20 H Creatinine 0.6 L Est GFR ( Amer) > 60 Est GFR (Non-Af Amer) > 60 Random Glucose 87 Calcium 8.0 L Total Bilirubin AST ALT Alkaline Phosphatase Total Protein Albumin Globulin Albumin/Globulin Ratio Urine Color Urine Clarity Urine pH Ur Specific [place] Urine Protein Urine Glucose (UA) Urine Ketones Urine Blood Urine Nitrate Urine Bilirubin Urine Urobilinogen Ur Leukocyte Esterase Urine RBC (Auto) Urine Microscopic WBC Ur Squamous Epith Cells Calcium Oxalate Crystal Urine Bacteria Vancomycin Trough 15.1 H Influenza Typ A,B (EIA) 11/15/18 11/15/18 11/16/18 05:30 05:30 05:20 WBC 7.1 6.9 RBC 3.89 3.81 Hgb 11.1 L 10.9 L Hct 34.0 33.2 L MCV 87.4 87.2 MCH 28.4 28.7 MCHC 32.5 L 32.9 L RDW 15.2 H 15.2 H Plt Count 115 L 114 L MPV 10.5 10.5 Neut % (Auto) 35.6 L 38.8 L Lymph % (Auto) 52.3 H 47.7 H [place] % (Auto) 8.0 9.4 Eos % (Auto) 3.2 3.6 Baso % (Auto) 0.9 0.5 Neut # (Auto) 2.5 2.7 Lymph # (Auto) 3.7 3.3 [place] # (Auto) 0.6 0.6 Eos # (Auto) 0.2 0.3 Baso # (Auto) 0.1 0.0 Sodium 138 Potassium 3.6 Chloride 106 Carbon Dioxide 27 Anion Gap 9 L BUN 14 Creatinine 0.6 L Est GFR ( Amer) > 60 Est GFR (Non-Af Amer) > 60 Random Glucose 93 Calcium 8.1 L Total Bilirubin 1.8 H AST 36 D ALT 26 Alkaline Phosphatase 74 Total Protein 6.6 Albumin 2.7 L Globulin 3.9 Albumin/Globulin Ratio 0.7 L Urine Color Urine Clarity Urine pH Ur Specific [place] Urine Protein Urine Glucose (UA) Urine Ketones Urine Blood Urine Nitrate Urine Bilirubin Urine Urobilinogen Ur Leukocyte Esterase Urine RBC (Auto) Urine Microscopic WBC Ur Squamous Epith Cells Calcium Oxalate Crystal Urine Bacteria Vancomycin Trough Influenza Typ A,B (EIA) 11/16/18 05:20 WBC RBC Hgb Hct MCV MCH MCHC RDW Plt Count MPV Neut % (Auto) Lymph % (Auto) [place] % (Auto) Eos % (Auto) Baso % (Auto) Neut # (Auto) Lymph # (Auto) [place] # (Auto) Eos # (Auto) Baso # (Auto) Sodium 139 Potassium 3.7 Chloride 106 Carbon Dioxide 26 Anion Gap 11 BUN 12 Creatinine 0.6 L Est GFR ( Amer) > 60 Est GFR (Non-Af Amer) > 60 Random Glucose 94 Calcium 8.0 L Total Bilirubin 1.5 H AST 35 ALT 22 Alkaline Phosphatase 77 Total Protein 6.7 Albumin 2.7 L Globulin 4.0 H Albumin/Globulin Ratio 0.7 L Urine Color Urine Clarity Urine pH Ur Specific [place] Urine Protein Urine Glucose (UA) Urine Ketones Urine Blood Urine Nitrate Urine Bilirubin Urine Urobilinogen Ur Leukocyte Esterase Urine RBC (Auto) Urine Microscopic WBC Ur Squamous Epith Cells Calcium Oxalate Crystal Urine Bacteria Vancomycin Trough Influenza Typ A,B (EIA) Microbiology 11/13/18 13:40 Blood Blood Culture - Preliminary NO GROWTH AFTER 3 DAYS 11/13/18 14:00 Blood Blood Culture - Preliminary NO GROWTH AFTER 48 HOURS 11/13/18 16:00 Urine,Clean Catch Urine Culture - Final <10,000 CFU/ML. MULTIPLE SPECIES. PROBABLE CONTAMINATION. Assessment and Plan (1) Positive blood cultures Status: Acute (2) HTN (hypertension) Status: Chronic - Assessment and Plan (Free Text) Assessment: A/P 68 year old female with multiple medical conditions was recalled for positive blood cx. source of the positive blood cx unknown at this time. possible contamination as pt.is afebrile and has normal wbc count and coag neg staph, however the coag neg staph is present in 2 sepearte blood cx and hence muct be treated with 14 days of Iv abx. TTE- no vegetations as per report. Plan- continue with IV vanco for now for this coag neg staph bacteremia. day #3 keep trough <20 repeat blood cx- neg x 2. advise total of 14 days of IV abx for the bacteremia. may need picc line .
--- NOTE | 2018-11-16 14:57 | CP.PCM.DIS ---
<Candy Sylvester - Last Filed: 11/16/18 15:32> Provider - Provider Date of Admission: 11/13/18 15:55 Attending physician: Moy Vázquez MD Consults: 11/13/18 17:00 Infectious Disease Consult Stat Comment: Consulting Provider: Cristela Pierce Consulting Physician: Cristela Pierce Reason for Consult: gram + cocci bacteremia Time Spent in preparation of Discharge (in minutes): 40 Hospital Course - Lab Results Lab Results: Micro Results 11/13/18 14:00 Blood Blood Culture - Preliminary NO GROWTH AFTER 3 DAYS 11/13/18 13:40 Blood Blood Culture - Preliminary NO GROWTH AFTER 3 DAYS 11/13/18 16:00 Urine,Clean Catch Urine Culture - Final <10,000 CFU/ML. MULTIPLE SPECIES. PROBABLE CONTAMINATION. Most Recent Lab Values WBC 6.9 K/uL (4.8-10.8) 11/16/18 05:20 RBC 3.81 Mil/uL (3.80-5.20) 11/16/18 05:20 Hgb 10.9 g/dL (12.0-16.0) L 11/16/18 05:20 Hct 33.2 % (34.0-47.0) L 11/16/18 05:20 MCV 87.2 fl (81.0-99.0) 11/16/18 05:20 MCH 28.7 pg (27.0-31.0) 11/16/18 05:20 MCHC 32.9 g/dL (33.0-37.0) L 11/16/18 05:20 RDW 15.2 % (11.5-14.5) H 11/16/18 05:20 Plt Count 114 K/uL (130-400) L 11/16/18 05:20 MPV 10.5 fl (7.2-11.7) 11/16/18 05:20 Neut % (Auto) 38.8 % (50.0-75.0) L 11/16/18 05:20 Lymph % (Auto) 47.7 % (20.0-40.0) H 11/16/18 05:20 [place] % (Auto) 9.4 % (0.0-10.0) 11/16/18 05:20 Eos % (Auto) 3.6 % (0.0-4.0) 11/16/18 05:20 Baso % (Auto) 0.5 % (0.0-2.0) 11/16/18 05:20 Neut # (Auto) 2.7 K/uL (1.8-7.0) 11/16/18 05:20 Lymph # (Auto) 3.3 K/uL (1.0-4.3) 11/16/18 05:20 [place] # (Auto) 0.6 K/uL (0.0-0.8) 11/16/18 05:20 Eos # (Auto) 0.3 K/uL (0.0-0.7) 11/16/18 05:20 Baso # (Auto) 0.0 K/uL (0.0-0.2) 11/16/18 05:20 Sodium 139 mmol/l (132-148) 11/16/18 05:20 Potassium 3.7 MMOL/L (3.6-5.0) 11/16/18 05:20 Chloride 106 mmol/L (98-107) 11/16/18 05:20 Carbon Dioxide 26 mmol/L (22-30) 11/16/18 05:20 Anion Gap 11 (10-20) 11/16/18 05:20 BUN 12 mg/dl (7-17) 11/16/18 05:20 Creatinine 0.6 mg/dl (0.7-1.2) L 11/16/18 05:20 Est GFR ( Amer) > 60 11/16/18 05:20 Est GFR (Non-Af Amer) > 60 11/16/18 05:20 Random Glucose 94 mg/dL (65-105) 11/16/18 05:20 Calcium 8.0 mg/dL (8.4-10.2) L 11/16/18 05:20 Total Bilirubin 1.5 mg/dl (0.2-1.3) H 11/16/18 05:20 AST 35 U/L (14-36) 11/16/18 05:20 ALT 22 U/L (9-52) 11/16/18 05:20 Alkaline Phosphatase 77 U/L (38-126) 11/16/18 05:20 Total Protein 6.7 G/DL (6.3-8.2) 11/16/18 05:20 Albumin 2.7 g/dL (3.5-5.0) L 11/16/18 05:20 Globulin 4.0 gm/dL (2.2-3.9) H 11/16/18 05:20 Albumin/Globulin Ratio 0.7 (1.0-2.1) L 11/16/18 05:20 Urine Color Yellow (YELLOW) 11/14/18 01:26 Urine Clarity Slighty-cloudy (Clear) 11/14/18 01:26 Urine pH 6.0 (5.0-8.0) 11/14/18 01:26 Ur Specific [place] 1.023 (1.003-1.030) 11/14/18 01:26 Urine Protein Negative mg/dL (NEGATIVE) 11/14/18 01:26 Urine Glucose (UA) Neg mg/dL (NEGATIVE) 11/14/18 01:26 Urine Ketones Negative mg/dL (NEGATIVE) 11/14/18 01:26 Urine Blood Small (NEGATIVE) 11/14/18 01:26 Urine Nitrate Negative (NEGATIVE) 11/14/18 01:26 Urine Bilirubin Negative (NEGATIVE) 11/14/18 01:26 Urine Urobilinogen 0.2-1.0 mg/dL (0.2-1.0) 11/14/18 01:26 Ur Leukocyte Esterase Small Trinity/uL (Negative) 11/14/18 01:26 Urine RBC (Auto) 10 /hpf (0-3) H 11/14/18 01:26 Urine Microscopic WBC 8 /hpf (0-5) H 11/14/18 01:26 Ur Squamous Epith Cells < 1 /hpf (0-5) 11/14/18 01:26 Calcium Oxalate Crystal Occ /hpf (<OCC) H 11/13/18 14:34 Urine Bacteria Rare (<OCC) 11/14/18 01:26 Vancomycin Trough 15.1 ug/mL (5.0-10.0) H 11/15/18 05:30 Influenza Typ A,B (EIA) Negative for flu a/b (NEGATIVE) 11/13/18 16:57 - Hospital Course Hospital Course: 67 year old Female with PMHx HTN, HLD, gastritis, liver cirrhosis & gallstones was sent to the ED bc blood cultures were positive. Patient afebrile overnight with no acute events. No leukocytosis. Patient was seen and examined this morning and states she continues to have cough, but it is improving. Patient will be discharged to TCU for continuation of antibiotics. 1. Bacteremia (possibly from UTI) -blood cultures were positive for gram positive cocci. -Afrebile & wbc unremarkable -CXR bibasilar atelectasis, no infiltrate -C/w IV vanco (day 3 -Echo showing atrial septum intact -Id recommendations appreciated 2. Cough -CXR bibasilar atelectasis, no infiltrate -C/w Iv vanco (day 3) -C/w Mucinex DM 3. UTI -elev. leuk esterase & WBC - urine culture unremarkable 4. HTN -C/w coreg 6.25mg PO BID 5. Anxiety -C/w xanax 1 mg PO Q12 PRN 6. Gastritis -C/w protonix 40mg PO QD 7. hx Liver cirrhosis Discharge Exam - Head Exam Head Exam: ATRAUMATIC Additional comments: intermittent coughing noted - Eye Exam Eye Exam: EOMI - ENT Exam ENT Exam: Mucous Membranes Moist - Cardiovascular Exam Cardiovascular Exam: REGULAR RHYTHM, +S1, +S2 - GI/Abdominal Exam GI & Abdominal Exam: Normal Bowel Sounds, Soft. absent: Guarding, Rigid, Tenderness - Neurological Exam Neurological exam: Alert, Oriented x3 - Psychiatric Exam Psychiatric exam: Normal Mood - Skin Skin Exam: Dry, Intact Discharge Plan - Discharge Medications Prescriptions: Vancomycin/0.9 % Sod Chloride [Vanco 1 Gram/150 ml-0.9% NaCl] 1 gm IV Q12 #22 plast..bag - Follow Up Plan Condition: STABLE Disposition: REHAB FACILITY/REHAB UNIT Instructions: Sepsis in Adults <Moy Vázquez - Last Filed: 11/16/18 16:17> Provider - Provider Date of Admission: 11/13/18 15:55 Attending physician: Moy Vázquez MD Consults: 11/13/18 17:00 Infectious Disease Consult Stat Comment: Consulting Provider: Cristela Pierce Consulting Physician: Cristela Pierce Reason for Consult: gram + cocci bacteremia Hospital Course - Lab Results Lab Results: Micro Results 11/13/18 14:00 Blood Blood Culture - Preliminary NO GROWTH AFTER 3 DAYS 11/13/18 13:40 Blood Blood Culture - Preliminary NO GROWTH AFTER 3 DAYS 11/13/18 16:00 Urine,Clean Catch Urine Culture - Final <10,000 CFU/ML. MULTIPLE SPECIES. PROBABLE CONTAMINATION. Most Recent Lab Values WBC 6.9 K/uL (4.8-10.8) 11/16/18 05:20 RBC 3.81 Mil/uL (3.80-5.20) 11/16/18 05:20 Hgb 10.9 g/dL (12.0-16.0) L 11/16/18 05:20 Hct 33.2 % (34.0-47.0) L 11/16/18 05:20 MCV 87.2 fl (81.0-99.0) 11/16/18 05:20 MCH 28.7 pg (27.0-31.0) 11/16/18 05:20 MCHC 32.9 g/dL (33.0-37.0) L 11/16/18 05:20 RDW 15.2 % (11.5-14.5) H 11/16/18 05:20 Plt Count 114 K/uL (130-400) L 11/16/18 05:20 MPV 10.5 fl (7.2-11.7) 11/16/18 05:20 Neut % (Auto) 38.8 % (50.0-75.0) L 11/16/18 05:20 Lymph % (Auto) 47.7 % (20.0-40.0) H 11/16/18 05:20 [place] % (Auto) 9.4 % (0.0-10.0) 11/16/18 05:20 Eos % (Auto) 3.6 % (0.0-4.0) 11/16/18 05:20 Baso % (Auto) 0.5 % (0.0-2.0) 11/16/18 05:20 Neut # (Auto) 2.7 K/uL (1.8-7.0) 11/16/18 05:20 Lymph # (Auto) 3.3 K/uL (1.0-4.3) 11/16/18 05:20 [place] # (Auto) 0.6 K/uL (0.0-0.8) 11/16/18 05:20 Eos # (Auto) 0.3 K/uL (0.0-0.7) 11/16/18 05:20 Baso # (Auto) 0.0 K/uL (0.0-0.2) 11/16/18 05:20 Sodium 139 mmol/l (132-148) 11/16/18 05:20 Potassium 3.7 MMOL/L (3.6-5.0) 11/16/18 05:20 Chloride 106 mmol/L (98-107) 11/16/18 05:20 Carbon Dioxide 26 mmol/L (22-30) 11/16/18 05:20 Anion Gap 11 (10-20) 11/16/18 05:20 BUN 12 mg/dl (7-17) 11/16/18 05:20 Creatinine 0.6 mg/dl (0.7-1.2) L 11/16/18 05:20 Est GFR ( Amer) > 60 11/16/18 05:20 Est GFR (Non-Af Amer) > 60 11/16/18 05:20 Random Glucose 94 mg/dL (65-105) 11/16/18 05:20 Calcium 8.0 mg/dL (8.4-10.2) L 11/16/18 05:20 Total Bilirubin 1.5 mg/dl (0.2-1.3) H 11/16/18 05:20 AST 35 U/L (14-36) 11/16/18 05:20 ALT 22 U/L (9-52) 11/16/18 05:20 Alkaline Phosphatase 77 U/L (38-126) 11/16/18 05:20 Total Protein 6.7 G/DL (6.3-8.2) 11/16/18 05:20 Albumin 2.7 g/dL (3.5-5.0) L 11/16/18 05:20 Globulin 4.0 gm/dL (2.2-3.9) H 11/16/18 05:20 Albumin/Globulin Ratio 0.7 (1.0-2.1) L 11/16/18 05:20 Urine Color Yellow (YELLOW) 11/14/18 01:26 Urine Clarity Slighty-cloudy (Clear) 11/14/18 01:26 Urine pH 6.0 (5.0-8.0) 11/14/18 01:26 Ur Specific [place] 1.023 (1.003-1.030) 11/14/18 01:26 Urine Protein Negative mg/dL (NEGATIVE) 11/14/18 01:26 Urine Glucose (UA) Neg mg/dL (NEGATIVE) 11/14/18 01:26 Urine Ketones Negative mg/dL (NEGATIVE) 11/14/18 01:26 Urine Blood Small (NEGATIVE) 11/14/18 01:26 Urine Nitrate Negative (NEGATIVE) 11/14/18 01:26 Urine Bilirubin Negative (NEGATIVE) 11/14/18 01:26 Urine Urobilinogen 0.2-1.0 mg/dL (0.2-1.0) 11/14/18 01:26 Ur Leukocyte Esterase Small [place]/uL (Negative) 11/14/18 01:26 Urine RBC (Auto) 10 /hpf (0-3) H 11/14/18 01:26 Urine Microscopic WBC 8 /hpf (0-5) H 11/14/18 01:26 Ur Squamous Epith Cells < 1 /hpf (0-5) 11/14/18 01:26 Calcium Oxalate Crystal Occ /hpf (<OCC) H 11/13/18 14:34 Urine Bacteria Rare (<OCC) 11/14/18 01:26 Vancomycin Trough 15.1 ug/mL (5.0-10.0) H 11/15/18 05:30 Influenza Typ A,B (EIA) Negative for flu a/b (NEGATIVE) 11/13/18 16:57 Attending/Attestation - Attestation I have personally seen and examined this patient.: Yes I have fully participated in the care of the patient.: Yes I have reviewed all pertinent clinical information, including history, physical exam and plan: Yes Notes (Text): 11/16/18 16:15 Patient seen and examined with resident. Case discussed and agreed with assessment. Patient needed 11 more days of IV Vancomycin because of Staph bacteremia. Patient to be transferred to TCU for continuation of IV antibiotics.
[2018-11-16 15:57] VITALS: BP 105/71; PULSE 77; RESP 18; TEMP 98; O2SAT 94
== END 2018-11-16 16:57 | DRG 872 ==
LOC: H.ER 12:51 → H.ERHOLD 15:55 → H.MEDSURG1 21:53
DX: R78.81 Bacteremia (principal); N39.0 Urinary tract infection, site not specified; J98.11 Atelectasis; K75.4 Autoimmune hepatitis; K74.60 Unspecified cirrhosis of liver; F41.9 Anxiety disorder, unspecified; E78.00 Pure hypercholesterolemia, unspecified; E78.5 Hyperlipidemia, unspecified; Z88.6 Allergy status to analgesic agent; Z91.010 Allergy to peanuts; M19.90 Unspecified osteoarthritis, unspecified site; J45.909 Unspecified asthma, uncomplicated; I25.10 Atherosclerotic heart disease of native coronary artery without angina pectoris; F32.9 Major depressive disorder, single episode, unspecified; K29.70 Gastritis, unspecified, without bleeding; G43.909 Migraine, unspecified, not intractable, without status migrainosus; B95.7 Other staphylococcus as the cause of diseases classified elsewhere; I12.9 Hypertensive chronic kidney disease with stage 1 through stage 4 chronic kidney disease, or unspecified chronic kidney disease; N18.9 Chronic kidney disease, unspecified

== ENCOUNTER 2018-11-16 16:20 | Inpatient (IN) | payer OTHER, MEDICAID ==
[2018-11-16 16:49] VITALS: BMI 37.0
[2018-11-16] MEDS ORDERED: Albuterol HFA 90 mcg/actuation (8 g) IH PRN (20:22)
[2018-11-16] MEDS ORDERED: Patient's Own Med (Vancomycin/0.9 % Sod Chloride [Vanco 1 Gram/150 Ml-0.9% Nacl] 1 GM) IV SCH (21:00)
--- NOTE | 2018-11-17 06:58 | CP.PCM.HP ---
<HiginioCandy - Last Filed: 11/17/18 12:39> History of Present Illness - History of Present Illness History of Present Illness: 67 year old Female with PMHx HTN, HLD, gastritis, liver cirrhosis & gallstones was sent to the ED bc blood cultures were positive. Patient was discharged to [facility] for continuation of antibiotics. Patient was afebrile overnight with no acute events. Patient was seen and examined this morning. She continues to complain of cough, which has shown some improvement. Pharmacy [facility] [address] Meds- coreg 6.25 mg po bid HCTZ- 12.5mg , Losartan 100 mg po daily, xanax 1mg BID PRN, protonix 40mg QD PMD: Dr. Shaw Meal Temperer: Dr. Antoine PMHx: HTN, Hyperlipidemia, autoimmune hepatitis, multiple kidney stones, ?CAD, gastritis, gallstone Surgical Hx: b/l knee surgery, shoulder surgery, ?Cardiac cath Family Hx: mother has hx stroke and CAD Social Hx: Lives at home, denies EtOH or tobacco Allergies: Codeine and peanut Present on Admission - Present on Admission Any Indicators Present on Admission: No Past Patient History - Infectious Disease Hx of Infectious Diseases: None - Tetanus Immunizations Tetanus Immunization: Unknown - Past Medical History & Family History Past Medical History?: Yes - Past Social History Smoking Status: Former Smoker - CARDIAC Hx Cardiac Disorders: Yes Hx Hypercholesterolemia: Yes Hx Hypertension: Yes - PULMONARY Hx Respiratory Disorders: Yes Hx Asthma: Yes Hx Bronchitis: Yes Hx Pneumonia: Yes (treated as outpt in May 2016) - NEUROLOGICAL Hx Neurological Disorder: Yes Hx Migraine: Yes - HEENT Hx HEENT Problems: No - RENAL Hx Chronic Kidney Disease: Yes Hx Kidney Stones: Yes - ENDOCRINE/METABOLIC Hx Endocrine Disorders: No - HEMATOLOGICAL/ONCOLOGICAL Hx Blood Disorders: No - INTEGUMENTARY Hx Dermatological Problems: No - MUSCULOSKELETAL/RHEUMATOLOGICAL Hx Musculoskeletal Disorders: Yes Hx Arthritis: Yes Hx Falls: Yes Hx Fractures: Yes - GASTROINTESTINAL Hx Gastrointestinal Disorders: Yes Hx Diverticulitis: Yes Hx Gastritis: Yes - GENITOURINARY/GYNECOLOGICAL Hx Genitourinary Disorders: No - PSYCHIATRIC Hx Psychophysiologic Disorder: Yes Hx Anxiety: Yes Hx Depression: Yes Hx Substance Use: No - SURGICAL HISTORY Hx Surgeries: Yes Hx Section: Yes Hx Orthopedic Surgery: Yes (bilateral shoulder, right kne arthroscopy) Other/Comment: JASON. SHOULDER SURGERY - ANESTHESIA Hx Anesthesia: Yes Hx Anesthesia Reactions: No Hx Malignant Hyperthermia: No Meds Allergies/Adverse Reactions: Allergies Allergy/AdvReac Type Severity Reaction Status Date / Time codeine Allergy RASH Verified 11/16/18 16:49 peanut Allergy RASH Verified 11/16/18 16:49 Physical Exam - Head Exam Head Exam: ATRAUMATIC, NORMAL INSPECTION - Eye Exam Eye Exam: EOMI - ENT Exam ENT Exam: Mucous Membranes Moist - Respiratory Exam Additional comments: crackles in lower lung bases - Cardiovascular Exam Cardiovascular Exam: REGULAR RHYTHM, +S1, +S2 - GI/Abdominal Exam GI & Abdominal Exam: Normal Bowel Sounds, Soft. absent: Guarding, Rigid, Tenderness - Extremities Exam Extremities exam: Negative for: calf tenderness - Neurological Exam Neurological exam: Alert, Oriented x3 - Psychiatric Exam Psychiatric exam: Normal Mood - Skin Skin Exam: Dry, Intact Results - Vital Signs Recent Vital Signs: Last Vital Signs Temp 98.4 F 11/16/18 19:37 Pulse 78 11/16/18 19:37 Resp 20 11/16/18 19:37 BP 128/78 11/16/18 19:37 Pulse Ox 98 11/16/18 19:37 Assessment & Plan - Assessment and Plan (Free Text) Assessment: 67 year old Female with PMHx HTN, HLD, gastritis, liver cirrhosis & gallstones sent to the ED bc blood cultures were positive now in TCU for continuation of antibiotics. 1. Bacteremia -blood cultures were positive for gram positive cocci. -Afrebile -CXR bibasilar atelectasis, no infiltrate -C/w IV vanco (day 4) -Echo showing atrial septum intact -Id recommendations appreciated 2. Cough -CXR bibasilar atelectasis, no infiltrate -C/w Iv vanco (day 4) -C/w Mucinex DM 3. UTI -elev. leuk esterase & WBC - urine culture unremarkable 4. HTN -C/w coreg 6.25mg PO BID 5. Anxiety -C/w xanax 1 mg PO Q12 PRN 6. Gastritis -C/w protonix 40mg PO QD 7. hx Liver cirrhosis <VázquezMoy D - Last Filed: 11/17/18 15:47> Results - Vital Signs Recent Vital Signs: Last Vital Signs Temp 98.8 F 11/17/18 08:00 Pulse 71 11/17/18 08:41 Resp 20 11/17/18 08:00 BP 116/72 11/17/18 08:41 Pulse Ox 95 11/17/18 08:00 Attending/Attestation - Attestation I have personally seen and examined this patient.: Yes I have fully participated in the care of the patient.: Yes I have reviewed all pertinent clinical information: Yes Notes (Text): 11/17/18 15:46 Patient seen and examined with resident. Case discussed and agreed with assessment and plan of management
[2018-11-17] MEDS: guaiFENesin-DM 600-30 mg ER Tab PO SCH ×2 (08:41→16:12)
[2018-11-17] MEDS: Pantoprazole 40 mg EC Tab PO SCH (08:41)
[2018-11-17] MEDS ORDERED: Pneumococcal 23-Valent Vaccine IM ONE (12:00)
[2018-11-18 06:01] LABS: BASO # 0.1 K/uL (0.0-0.2); BASO % 0.9 % (0.0-2.0); EOS # 0.3 K/uL (0.0-0.7); EOS % 4.5 % (0.0-4.0); HEMOGLOBIN 11.3 g/dL (12.0-16.0); LYMPH # 2.8 K/uL (1.0-4.3); LYMPH % 39.6 % (20.0-40.0); MEAN CELL VOLUME 87.8 fl (81.0-99.0); MEAN CORPUSCULAR HEMOGLOBIN 28.8 pg (27.0-31.0); MEAN CORPUSCULAR HGB CONC 32.8 g/dL (33.0-37.0); MEAN PLATELET VOLUME 10.3 fl (7.2-11.7); MONO # 0.6 K/uL (0.0-0.8); MONO % 9.1 % (0.0-10.0); NEUT # 3.2 K/uL (1.8-7.0); NEUT % 45.9 % (50.0-75.0); NRBC % 0.2 % (0.0-0.0); RBC 3.92 Mil/uL (3.80-5.20); RED CELL DISTRIBUTION WIDTH 15.2 % (11.5-14.5)
[2018-11-18 06:15] LABS: BLOOD UREA NITROGEN 15 mg/dl (7-17); CALCIUM 8.1 mg/dL (8.4-10.2); GFR NON-AFRICAN AMERICAN > 60
[2018-11-18] MEDS: guaiFENesin-DM 600-30 mg ER Tab PO SCH ×2 (09:33→18:13)
[2018-11-18] MEDS: Pantoprazole 40 mg EC Tab PO SCH (09:34)
[2018-11-19] MEDS: guaiFENesin-DM 600-30 mg ER Tab PO SCH ×2 (08:18→17:25)
[2018-11-19] MEDS: Pantoprazole 40 mg EC Tab PO SCH (08:18)
--- NOTE | 2018-11-19 15:05 | CP.PCM.PN ---
Subjective - Date & Time of Evaluation Date of Evaluation: 11/19/18 Time of Evaluation: 15:04 - Subjective Subjective: doing well no complaints hd stable nad Objective - Vital Signs/Intake and Output Vital Signs (last 24 hours): Temp Pulse Resp BP Pulse Ox 99.3 F 67 20 118/69 97 11/19/18 10:00 11/19/18 10:00 11/19/18 10:00 11/19/18 10:00 11/19/18 07:38 Intake and Output: Vitals Reviewed GEN: WDWN, alert, cooperative HEENT: NCAT, PERRL, EOMI HEART: RRR, +S1S2, NO MRG LUNG: CTAB, NO WRR ABD: soft, NT, ND, No HSM, No masses EXT: normal pedal pulses NEURO: awake, alert SKIN: warm, dry PSYCH: normal mood, normal affect - Medications Medications: Current Medications Albuterol (Ventolin Hfa 90 Mcg/Actuation (8 G)) 2 puff IH Q6H PRN PRN Reason: Shortness of Breath Alprazolam (Xanax) 1 mg PO Q12 PRN PRN Reason: Anxiety Carvedilol (Coreg) 6.25 mg PO BID@0900,2100 [facility] Last Admin: 11/19/18 08:19 Dose: Not Given Docusate Sodium (Colace) 100 mg PO BID [facility] Last Admin: 11/19/18 08:16 Dose: 100 mg Guaifenesin/Dextromethorphan (Mucinex-Dm 600-30 Mg) 1 tab PO BID [facility] Last Admin: 11/19/18 08:18 Dose: 1 tab Vancomycin HCl 1 gm/ Sodium (Chloride) 250 mls @ 166.667 mls/hr IVPB Q12 [facility] Last Admin: 11/19/18 08:14 Dose: 166.667 mls/hr Pantoprazole Sodium (Protonix Ec Tab) 40 mg PO DAILY [facility] Last Admin: 11/19/18 08:18 Dose: 40 mg - Labs Labs: 11/18/18 05:40 11/18/18 05:40 Assessment and Plan - Assessment and Plan (Free Text) Plan: 67 year old Female with PMHx HTN, HLD, gastritis, liver cirrhosis & gallstones sent to the ED bc blood cultures were positive now in TCU for continuation of antibiotics. 1. Bacteremia -blood cultures were positive for gram positive cocci. -Afrebile -CXR bibasilar atelectasis, no infiltrate -C/w IV vanco (day 6) -Echo showing atrial septum intact -Id recommendations appreciated 2. Cough -CXR bibasilar atelectasis, no infiltrate -C/w Iv vanco (day 4) -C/w Mucinex DM 3. UTI -elev. leuk esterase & WBC - urine culture unremarkable 4. HTN -C/w coreg 6.25mg PO BID 5. Anxiety -C/w xanax 1 mg PO Q12 PRN 6. Gastritis -C/w protonix 40mg PO QD 7. hx Liver cirrhosis
[2018-11-20] MEDS: guaiFENesin-DM 600-30 mg ER Tab PO SCH ×2 (08:46→17:15)
[2018-11-20] MEDS: Pantoprazole 40 mg EC Tab PO SCH (13:21)
[2018-11-21] MEDS: guaiFENesin-DM 600-30 mg ER Tab PO SCH ×2 (08:17→16:15)
[2018-11-21] MEDS: Pantoprazole 40 mg EC Tab PO SCH (08:18)
[2018-11-22] MEDS: guaiFENesin-DM 600-30 mg ER Tab PO SCH ×2 (09:24→17:29)
[2018-11-22] MEDS: Pantoprazole 40 mg EC Tab PO SCH (09:25)
[2018-11-23 08:27] VITALS: RESP 20
[2018-11-23] MEDS: Pantoprazole 40 mg EC Tab PO SCH (08:41)
[2018-11-23] MEDS: guaiFENesin-DM 600-30 mg ER Tab PO SCH ×2 (08:43→17:01)
[2018-11-24] MEDS: guaiFENesin-DM 600-30 mg ER Tab PO SCH ×2 (08:45→16:26)
--- NOTE | 2018-11-24 12:29 | CP.PCM.PN ---
Subjective - Date & Time of Evaluation Date of Evaluation: 11/24/18 Time of Evaluation: 13:30 - Subjective Subjective: Patient was seen and evaluated bedside. Feeling well. Denies any pain or discomfort . Hemodynamically stable, afebrile. No acute issues overnight . Objective - Vital Signs/Intake and Output Vital Signs (last 24 hours): Temp Pulse Resp BP Pulse Ox 99.0 F 78 20 114/74 96 11/24/18 07:45 11/24/18 07:45 11/24/18 07:45 11/24/18 07:45 11/24/18 07:45 - Medications Medications: Current Medications Albuterol (Ventolin Hfa 90 Mcg/Actuation (8 G)) 2 puff IH Q6H PRN PRN Reason: Shortness of Breath Carvedilol (Coreg) 6.25 mg PO BID@0900,2100 [facility] Last Admin: 11/24/18 08:45 Dose: Not Given Docusate Sodium (Colace) 100 mg PO BID [facility] Last Admin: 11/24/18 08:45 Dose: Not Given Guaifenesin/Dextromethorphan (Mucinex-Dm 600-30 Mg) 1 tab PO BID [facility] Last Admin: 11/24/18 08:45 Dose: 1 tab Hydrocortisone (Cortizone 1% Cream) 1 applic TOP BID [facility] Last Admin: 11/24/18 08:45 Dose: 1 applic Vancomycin HCl 1 gm/ Sodium (Chloride) 250 mls @ 166.667 mls/hr IVPB Q12 [facility] Last Admin: 11/24/18 08:50 Dose: 166.667 mls/hr Pantoprazole Sodium (Protonix Ec Tab) 40 mg PO DAILY [facility] Last Admin: 11/23/18 08:41 Dose: 40 mg - Labs Labs: 11/18/18 05:40 11/18/18 05:40 - Constitutional Appears: Non-toxic, No Acute Distress - Head Exam Head Exam: ATRAUMATIC, NORMOCEPHALIC - Eye Exam Eye Exam: EOMI, PERRL Pupil Exam: NORMAL ACCOMODATION - ENT Exam ENT Exam: Mucous Membranes Moist, Normal Exam - Neck Exam Neck Exam: Full ROM, Normal Inspection - Respiratory Exam Respiratory Exam: Clear to Ausculation Bilateral, NORMAL BREATHING PATTERN. absent: Rales, Rhonchi, Wheezes - Cardiovascular Exam Cardiovascular Exam: REGULAR RHYTHM, RRR, +S1, +S2. absent: JVD - GI/Abdominal Exam GI & Abdominal Exam: Soft, Normal Bowel Sounds. absent: Distended, Guarding, Tenderness, Rebound - Rectal Exam Rectal Exam: Deferred - Extremities Exam Extremities Exam: Normal Capillary Refill, Normal Inspection. absent: Pedal Edema - Back Exam Back Exam: NORMAL INSPECTION - Neurological Exam Neurological Exam: Alert, Awake, CN II-XII Intact, Oriented x3 - Psychiatric Exam Psychiatric exam: Normal Affect, Normal Mood - Skin Skin Exam: Dry, Intact, Normal Color, Warm Assessment and Plan - Assessment and Plan (Free Text) Assessment: 67 year old Female with PMHx HTN, HLD, gastritis, liver cirrhosis & gallstones sent to the ED because of blood cultures positive for staphcoahg negative .Patient was admitted to TCu for continuation of IV antibiotics. At present feeling well Discharge date friday11/28/18 1. Staph coag negative bacteremia Afrebile continue IV vancomycin ID was consulted discharge date on Friday Echo showed no vegetations 2. Hypertension controlled on coreg 3. Anxiety on xanax 1 mg PO Q12 PRN 4.Gastritis continue protonix 40mg PO QD 5. DVT prophylaxis SCD
[2018-11-24] MEDS: Pantoprazole 40 mg EC Tab PO SCH (16:27)
[2018-11-25] MEDS: guaiFENesin-DM 600-30 mg ER Tab PO SCH ×2 (09:33→17:49)
[2018-11-25] MEDS: Pantoprazole 40 mg EC Tab PO SCH (09:33)
[2018-11-26] MEDS: Pantoprazole 40 mg EC Tab PO SCH (08:37)
[2018-11-26] MEDS: guaiFENesin-DM 600-30 mg ER Tab PO SCH ×2 (08:39→17:01)
--- NOTE | 2018-11-26 16:15 | CP.PCM.PN ---
Subjective - Date & Time of Evaluation Date of Evaluation: 11/26/18 Time of Evaluation: 13:15 - Subjective Subjective: Patient seen and examined. Denied any complaint. Objective - Vital Signs/Intake and Output Vital Signs (last 24 hours): Temp Pulse Resp BP Pulse Ox 98.9 F 73 20 124/79 94 L 11/26/18 15:28 11/26/18 15:28 11/26/18 15:28 11/26/18 15:28 11/26/18 15:28 - Medications Medications: Current Medications Albuterol (Ventolin Hfa 90 Mcg/Actuation (8 G)) 2 puff IH Q6H PRN PRN Reason: Shortness of Breath Carvedilol (Coreg) 6.25 mg PO BID@0900,2100 [facility] Last Admin: 11/26/18 08:38 Dose: Not Given Docusate Sodium (Colace) 100 mg PO BID [facility] Last Admin: 11/26/18 08:38 Dose: Not Given Guaifenesin/Dextromethorphan (Mucinex-Dm 600-30 Mg) 1 tab PO BID [facility] Last Admin: 11/26/18 08:39 Dose: 1 tab Hydrocortisone (Cortizone 1% Cream) 1 applic TOP BID [facility] Last Admin: 11/26/18 08:38 Dose: 1 applic Pantoprazole Sodium (Protonix Ec Tab) 40 mg PO DAILY [facility] Last Admin: 11/26/18 08:37 Dose: 40 mg - Labs Labs: 11/18/18 05:40 11/18/18 05:40 - Constitutional Appears: No Acute Distress - Head Exam Head Exam: ATRAUMATIC - Eye Exam Eye Exam: absent: Scleral icterus - ENT Exam ENT Exam: Mucous Membranes Moist - Neck Exam Neck Exam: absent: Meningismus - Respiratory Exam Respiratory Exam: absent: Rales, Rhonchi, Wheezes, Respiratory Distress - Cardiovascular Exam Cardiovascular Exam: REGULAR RHYTHM, +S1, +S2 - GI/Abdominal Exam GI & Abdominal Exam: Soft. absent: Tenderness - Rectal Exam Rectal Exam: Deferred - Neurological Exam Neurological Exam: Alert, Oriented x3 - Psychiatric Exam Psychiatric exam: Normal Affect - Skin Skin Exam: Dry, Intact Assessment and Plan - Assessment and Plan (Free Text) Assessment: 67 yo female with history of HTN, HLD, gastritis and liver cirrhosis was called back after she was seen in the ER because of Staph coagulase negative bacteremia. 1. Staph coag negative bacteremia continue IV Vancomycin Vanco trough was 15.1 Echo was negative for vegetations will complete 2 weeks course of IV Vanco on Friday 2. Hypertension BP controlled continue Coreg 3. Gastritis continue Protonix 40mg PO QD
[2018-11-27] MEDS: guaiFENesin-DM 600-30 mg ER Tab PO SCH ×2 (09:22→17:27)
[2018-11-27] MEDS: Pantoprazole 40 mg EC Tab PO SCH (09:23)
[2018-11-27] MEDS ORDERED: Pneumococcal 23-Valent Vaccine IM ONE (12:24)
[2018-11-27 16:11] VITALS: O2SAT 95
[2018-11-28 08:18] VITALS: BP 111/76; PULSE 70; TEMP 98.3
[2018-11-28] MEDS: guaiFENesin-DM 600-30 mg ER Tab PO SCH (08:50)
[2018-11-28] MEDS: Pantoprazole 40 mg EC Tab PO SCH (08:51)
--- NOTE | 2018-11-28 10:58 | CP.PCM.DIS ---
Provider - Provider Date of Admission: 11/16/18 16:55 Attending physician: Moy Vázquez MD Consults: Dr Pierce Time Spent in preparation of Discharge (in minutes): 25 Diagnosis - Discharge Diagnosis (1) Bacteremia due to coagulase-negative Staphylococcus Status: Acute Comment: completed 14 day course of IV Vancomycin (2) HTN (hypertension) Status: Chronic Comment: BP stable. continue [facility] Hospital Course - Lab Results Lab Results: Most Recent Lab Values WBC 7.0 K/uL (4.8-10.8) 11/18/18 05:40 RBC 3.92 Mil/uL (3.80-5.20) 11/18/18 05:40 Hgb 11.3 g/dL (12.0-16.0) L 11/18/18 05:40 Hct 34.4 % (34.0-47.0) 11/18/18 05:40 MCV 87.8 fl (81.0-99.0) 11/18/18 05:40 MCH 28.8 pg (27.0-31.0) 11/18/18 05:40 MCHC 32.8 g/dL (33.0-37.0) L 11/18/18 05:40 RDW 15.2 % (11.5-14.5) H 11/18/18 05:40 Plt Count 132 K/uL (130-400) 11/18/18 05:40 MPV 10.3 fl (7.2-11.7) 11/18/18 05:40 Neut % (Auto) 45.9 % (50.0-75.0) L 11/18/18 05:40 Lymph % (Auto) 39.6 % (20.0-40.0) 11/18/18 05:40 [place] % (Auto) 9.1 % (0.0-10.0) 11/18/18 05:40 Eos % (Auto) 4.5 % (0.0-4.0) H 11/18/18 05:40 Baso % (Auto) 0.9 % (0.0-2.0) 11/18/18 05:40 Neut # (Auto) 3.2 K/uL (1.8-7.0) 11/18/18 05:40 Lymph # (Auto) 2.8 K/uL (1.0-4.3) 11/18/18 05:40 [place] # (Auto) 0.6 K/uL (0.0-0.8) 11/18/18 05:40 Eos # (Auto) 0.3 K/uL (0.0-0.7) 11/18/18 05:40 Baso # (Auto) 0.1 K/uL (0.0-0.2) 11/18/18 05:40 Sodium 138 mmol/l (132-148) 11/18/18 05:40 Potassium 3.8 MMOL/L (3.6-5.0) 11/18/18 05:40 Chloride 105 mmol/L (98-107) 11/18/18 05:40 Carbon Dioxide 28 mmol/L (22-30) 11/18/18 05:40 Anion Gap 9 (10-20) L 11/18/18 05:40 BUN 15 mg/dl (7-17) 11/18/18 05:40 Creatinine 0.6 mg/dl (0.7-1.2) L 11/18/18 05:40 Est GFR ( Amer) > 60 11/18/18 05:40 Est GFR (Non-Af Amer) > 60 11/18/18 05:40 Random Glucose 93 mg/dL (65-105) 11/18/18 05:40 Calcium 8.1 mg/dL (8.4-10.2) L 11/18/18 05:40 - Hospital Course Hospital Course: 67 yo female with history of HTN, HLD, gastritis and liver cirrhosis was called back for admission because blood drawn from the ER grew coagulase negative Staph. Patient was started on IV Vancomycin and finished the 14 day course in TCU. Discharge Exam - Head Exam Head Exam: ATRAUMATIC - Eye Exam Eye Exam: absent: Scleral icterus - ENT Exam ENT Exam: Mucous Membranes Moist - Respiratory Exam Respiratory Exam: absent: Rales, Rhonchi, Wheezes, Respiratory Distress - Cardiovascular Exam Cardiovascular Exam: REGULAR RHYTHM, +S1, +S2 - GI/Abdominal Exam GI & Abdominal Exam: Soft. absent: Tenderness - Rectal Exam Rectal Exam: Deferred - Neurological Exam Neurological exam: Alert, Oriented x3 - Psychiatric Exam Psychiatric exam: Normal Affect - Skin Skin Exam: Dry, Intact Discharge Plan - Follow Up Plan Condition: GOOD Disposition: HOME/ ROUTINE Instructions: Sepsis, Adult (DC)
== END 2018-11-28 11:50 | disposition home or self-care (01) | DRG 872 ==
LOC: H.TCU 16:55
PROC: 3E03329 Introduction of Other Anti-infective into Peripheral Vein, Percutaneous Approach (ICD-10-PCS; 2018-11-16)
PROC: F07Z9FZ Gait Training/Functional Ambulation Treatment using Assistive, Adaptive, Supportive or Protective Equipment (ICD-10-PCS; 2018-11-16)
PROC: F08Z4FZ Home Management Treatment using Assistive, Adaptive, Supportive or Protective Equipment (ICD-10-PCS; 2018-11-17)
PROC: F07M6FZ Therapeutic Exercise Treatment of Musculoskeletal System - Whole Body using Assistive, Adaptive, Supportive or Protective Equipment (ICD-10-PCS; 2018-11-17)
PROC: 3E0234Z Introduction of Serum, Toxoid and Vaccine into Muscle, Percutaneous Approach (ICD-10-PCS; principal; 2018-11-27)
DX: R78.81 Bacteremia (principal); N39.0 Urinary tract infection, site not specified; J98.11 Atelectasis; B95.7 Other staphylococcus as the cause of diseases classified elsewhere; I12.9 Hypertensive chronic kidney disease with stage 1 through stage 4 chronic kidney disease, or unspecified chronic kidney disease; N18.9 Chronic kidney disease, unspecified; K74.60 Unspecified cirrhosis of liver; I25.10 Atherosclerotic heart disease of native coronary artery without angina pectoris; K29.70 Gastritis, unspecified, without bleeding; E78.5 Hyperlipidemia, unspecified; E78.00 Pure hypercholesterolemia, unspecified; F41.9 Anxiety disorder, unspecified; Z23 Encounter for immunization; Z87.01 Personal history of pneumonia (recurrent); Z87.442 Personal history of urinary calculi; Z87.891 Personal history of nicotine dependence; Z79.899 Other long term (current) drug therapy; Z88.6 Allergy status to analgesic agent; Z91.010 Allergy to peanuts